=== PATIENT | female | born 1955 | race Caucasian/White ===

== ENCOUNTER 2022-08-30 10:25 | Outpatient (CLI) | payer MEDICARE, OTHER, SELFPAY ==
--- NOTE | 2022-08-30 10:45 | CRLHL7_ITS ---
For Patients: As a result of the Cures Act, medical imaging exams and procedure reports are released immediately into your electronic medical record. You may view this report before your referring provider. If you have questions, please contact your health care provider. BILATERAL DIAGNOSTIC MAMMOGRAM WITH COMPUTER-AIDED DETECTION AND TOMOSYNTHESIS LEFT BREAST ULTRASOUND INDICATION: 66-year-old female. Palpable abnormality and tenderness lower outer quadrant LEFT breast. TECHNIQUE: CC and MLO views were obtained. This digital study was evaluated with the assistance of computer-aided detection. Digital breast tomosynthesis utilized. COMPARISON: None. FINDINGS: There are scattered areas of fibroglandular density Scattered benign-appearing calcifications in each breast some of which are secretory in nature. No underlying mass or region of architectural distortion identified in either breast. No suspicious microcalcifications. Ultrasound is recommended for further evaluation of the palpable abnormality in the lower outer quadrant of the LEFT breast. IMPRESSION: Negative mammogram. TECHNIQUE: Directed LEFT breast ultrasound with this radiologist present. FINDINGS: Only normal breast tissue is identified. No underlying mass. No region of architectural distortion. No definite lymph node or cyst either. These findings were discussed briefly with the patient. IMPRESSION: Negative mammogram. Negative LEFT breast ultrasound. Any further workup should based on clinical grounds. Annual mammography is recommended. BI-RADS Category 2: Benign A lay language report of this examination will be provided to the patient. Dictated by: Guero Chacon MD @08/31/2022 8:16:41 AM/tyler DIANDRA/Dictated by: Guero Chacon MD @ 08/31/2022 8:15:00 AM (Electronically Signed)
--- NOTE | 2022-08-30 11:15 | CRLHL7_ITS ---
For Patients: As a result of the Century Cures Act, medical imaging exams and procedure reports are released immediately into your electronic medical record. You may view this report before your referring provider. If you have questions, please contact your health care provider. PLEASE SEE BILATERAL DIAGNOSTIC MAMMOGRAM OF SAME DAY. DIANDRA/Dictated by: Guero Chacon MD @ 08/31/2022 8:16:00 AM (Electronically Signed)
--- NOTE | 2022-08-30 13:30 | CRLHL7_ITS ---
For Patients: As a result of the Century Cures Act, medical imaging exams and procedure reports are released immediately into your electronic medical record. You may view this report before your referring provider. If you have questions, please contact your health care provider. DXA BONE MINERAL DENSITY STUDY Reason for exam: Hyperparathyroidism. Current height (in): 66. Weight (lb): 225. Menopause age: 45. Ethnicity: White. 1. Have you had a previous hip or vertebral fracture? No. 2. Have you had any fractures during your adult life which did not result from significant trauma (e.g., auto accident)? No. 3. Did either of your parents have a hip fracture? Yes. 4. Do you smoke? No. 5. Have you ever taken Glucocorticoids? No. 6. Do you have rheumatoid arthritis? No. 7. Do you have secondary osteoporosis? Yes. 8. Do you drink 3 or more alcoholic drinks per day? No. 9. Are you being treated for osteoporosis? No. 10. Have you ever taken any of the following medications: Actonel, Evista, Fosamax, Miacalcin, Reclast, Boniva, Forteo, HRT (i.e., estrogen/hormone therapy), Protelos, Prolia, Vitamin D, Calcium, other ??? please specify. ANSWER: Yes, vitamin D and Actonel. 11. Do you have any of the following medical conditions: Anorexia or bulimia, asthma or emphysema, end stage renal disease, hyperparathyroidism, any seizure disorders, cancer, inflammatory bowel diseases, hysterectomy, other ??? please specify. ANSWER: Yes, hyperparathyroidism and hysterectomy. 12. What was your maximum height (inches)? 67. 13. Do you perform weight bearing exercise regularly? No. 14. Do you regularly consume dairy products? Yes. 15. Do you drink caffeinated beverages? No. If female: 16. At what age did your period start? 14. 17. Are you premenopausal? No. 18. How many full-term pregnancies have you had? 3. 19. Have you ever missed your period for more than 6 months in a row (not including or menopause)? No. TECHNIQUE: Bone mineral density study was performed using the [employer]. FINDINGS: The results of the study expressed as bone mineral density (BMD) are as follows: Lumbar spine L1 to L4: BMD: 1.116 g/cm2. T-score: 0.6. Z-score: 2.4 Neck Left: BMD: 0.818 g/cm2. T-score: -0.3. Z-score: 1.3 Right: BMD: 0.835 g/cm2. T-score: -0.1. Z-score: 1.4 Total Left: BMD: 0.976 g/cm2. T-score: 0.3. Z-score: 1.5 Right: BMD: 0.943 g/cm2. T-score: 0.0. Z-score: 1.3 IMPRESSION: Normal bone density. KIM TOBIAS M.D. Diagnostic/Nuclear Medicine Radiologist [email or web address] JMN:[email or web address]/Dictated by: Kim Tobias MD @ 08/31/2022 10:11:00 AM (Electronically Signed)
== END 2022-08-30 10:26 | disposition home or self-care (01) ==
LOC: MAMMO 10:26
PROVIDERS: PCP Family Medicine; Visit Provider Family Medicine
DX: N64.4 Mastodynia (principal); E21.3 Hyperparathyroidism, unspecified
CPT/HCPCS: 76642; 77066; 77080; G0279

== ENCOUNTER 2022-09-04 11:50 | Outpatient (CLI) | payer MEDICARE, OTHER, SELFPAY | END 2022-09-04 11:51 | disposition home or self-care (01) | PROVIDERS: PCP Family Medicine; Visit Provider Family Medicine | DX: R53.83 Other fatigue (principal); D50.9 Iron deficiency anemia, unspecified; I10 Essential (primary) hypertension; Z13.6 Encounter for screening for cardiovascular disorders; D47.3 Essential (hemorrhagic) thrombocythemia | CPT/HCPCS: 80061; 82728 ==

== ENCOUNTER 2022-10-09 13:00 | Outpatient (RCR) | payer MEDICARE, OTHER, SELFPAY ==
[2022-09-14] VITALS (7 sets, daily range): BP systolic 119–141; BP diastolic 69–84; PULSE 77–93; RESP 16–22; TEMP 36.3–37.2; O2SAT 96–100
--- NOTE | 2022-09-14 16:42 | ONC.NURNOTE ---
Transferred pt to Med Surg to finish unit 2/2 PRBC transfusion. Report given via phone to BABAK Collins; all ppwk and SBAR transferred with pt and handed off. Called back and reviewed with shaw Jeffers RN that Dr. Holland included order for post-transfusion Hgb to be drawn to be on file. Critical value to be reported to on-call provider per protocol, otherwise no notification needed.
[2022-09-14 17:23] LABS: Hemoglobin* 8.8 gm/dL (12.0-16.0)
--- NOTE | 2022-09-14 17:46 | PC.NURSE ---
Pt arrived from [facility] at 1635 via w/c to room 262 for completion of her 2nd unit of prbc for hgb 6.7. Blood transfusion completed at 1655 VS taken and 30 minute post op VS completed at 1725. Post op HGB obtained per Dr. Holland's order No sx of transfusion rxn. IV #24 discontinued per primary RN right upper extremity. Discharged to own home with noe Colindres via w/c with personal belongings at 1736 pm.
[2022-10-09 14:33] LABS: Basophils Percent Auto 0.3 % (0.0-3.0); Eosinophils Percent Auto 0.9 % (0.0-7.0); Hematocrit 30.1 % (33.0-51.0); Hemoglobin* 8.8 gm/dL (12.0-16.0); Immature Granulocytes Pct Auto 0.4 %; Immature Reticulocyte Fraction 37.6 % (3.0-15.9); Lymphocytes Percent Auto 15.8 % (20-44); Mean Corpuscular HGB Conc 29 gm/dL (32-36); Mean Corpuscular Hemoglobin 23 pg (26-34); Mean Corpuscular Volume 78 fL (80-100); Monocytes Percent Auto 4.7 % (0.0-11.0); Neutrophils Percent Auto 77.9 % (42.0-72.0); Platelet Count* 653 K/uL (140-440); Red Blood Count 3.84 m/uL (4.00-5.20); Reticulocyte Hemoglobin Equivi 18.4 pg (29.0-35.0); Reticulocytes Absolute 0.08 # (0.03-0.08); White Blood Count* 13.96 K/uL (4.50-11.00)
[2022-10-09 14:47] LABS: Albumin* 4.3 g/dL (3.3-5.0); Chloride* 107 mmol/L (96-114); Sodium* 139 mmol/L (135-149)
[2022-10-09 14:48] LABS: Potassium* 4.4 mmol/L (3.6-5.1); Slide Review Reflex No
[2022-10-09 14:50] LABS: Alanine Aminotransferase* 14 U/L (4-35); Alkaline Phosphatase* 109 U/L (40-150); Aspartate Amino Transferase* 15 U/L (12-35); Bilirubin Total* 0.2 mg/dL (0.1-1.5); Blood Urea Nitrogen* 16 mg/dL (7-30); Carbon Dioxide* 26 mmol/L (20-32); Creatinine* 0.9 mg/dL (0.5-1.5); Estimated Glomerular Filt Rate 71 ml/min; Glucose* 98 mg/dL (60-115); Total Protein* 7.4 g/dL (6.0-8.3)
[2022-10-09 14:51] LABS: Calcium* 9.3 mg/dL (8.4-10.6)
[2022-10-09 15:40] LABS: Vitamin B12* 487 pg/mL (243-894)
[2022-10-09 16:28] LABS: Iron* 26 ug/dL (37-170)
[2022-10-09 16:38] LABS: Percent Iron Saturation 6 % (20-50); Total Iron Binding Capacity 460 ug/dL (265-497)
[2022-10-09 17:05] LABS: Ferritin* 4.2 ng/mL (11.1-264.0)
[2022-10-11 14:35] LABS: Folate, Serum 10.9 ng/mL (>=5.9)
== END 2023-03-13 23:59 | disposition home or self-care (01) ==
LOC: CCIC 13:00
PROVIDERS: PCP Family Medicine; Referring Provider Family Medicine; Visit Provider Internal Medicine Hematology & Oncology
DX: D64.9 Anemia, unspecified (principal); D75.81 Myelofibrosis
CPT/HCPCS: 36415; 36430; 80053; 82607; 82728; 82746; 83540; 83550; 85018; 85025; 85045; 86850; 86900; 86901; 86922; 99202; 99204; 99205; 99212; P9016

== ENCOUNTER 2022-10-16 11:03 | Outpatient (CLI) | payer MEDICARE, OTHER, SELFPAY | END 2022-10-16 11:04 | disposition home or self-care (01) | LOC: NFLDREF 10-17 11:27 | PROVIDERS: PCP Family Medicine; Referring Provider Family Medicine; Visit Provider Family Medicine | DX: Z00.00 Encounter for general adult medical examination without abnormal findings (principal); I10 Essential (primary) hypertension; E66.01 Morbid (severe) obesity due to excess calories; D50.8 Other iron deficiency anemias; Z13.6 Encounter for screening for cardiovascular disorders | CPT/HCPCS: 80053; 80061 ==

== ENCOUNTER 2022-10-18 14:27 | Outpatient (CLI) | payer MEDICARE, OTHER, SELFPAY | END 2022-10-18 14:28 | disposition home or self-care (01) | LOC: NFLDREF 10-25 22:28 | PROVIDERS: PCP Family Medicine; Referring Provider Family Medicine; Visit Provider Internal Medicine Hematology & Oncology | DX: D75.81 Myelofibrosis (principal) | CPT/HCPCS: 81270 ==

== ENCOUNTER 2023-01-11 10:48 | Outpatient (CLI) | payer MEDICARE, OTHER, SELFPAY | END 2023-01-11 10:49 | disposition home or self-care (01) | LOC: NFLDREF 10:51 | PROVIDERS: PCP Family Medicine; Visit Provider Family Medicine | DX: R30.0 Dysuria (principal); D50.9 Iron deficiency anemia, unspecified; E21.3 Hyperparathyroidism, unspecified; I10 Essential (primary) hypertension; D47.3 Essential (hemorrhagic) thrombocythemia; E66.01 Morbid (severe) obesity due to excess calories; R35.0 Frequency of micturition; R07.2 Precordial pain; I95.9 Hypotension, unspecified; N20.0 Calculus of kidney | CPT/HCPCS: 82728; 87086 ==

== ENCOUNTER 2023-01-15 11:27 | Outpatient (CLI) | payer MEDICARE, OTHER, SELFPAY | END 2023-01-15 11:28 | disposition home or self-care (01) | LOC: NFLDREF 11:29 | PROVIDERS: PCP Family Medicine; Visit Provider Family Medicine | DX: R30.0 Dysuria (principal) | CPT/HCPCS: 87086 ==

== ENCOUNTER 2023-01-18 15:58 | Outpatient (CLI) | payer MEDICARE, OTHER, MEDICAID, SELFPAY | END 2023-01-18 15:59 | disposition home or self-care (01) | LOC: NFLDREF 15:58 | PROVIDERS: PCP Family Medicine; Visit Provider Family Medicine | DX: R30.0 Dysuria (principal) | CPT/HCPCS: 87086 ==

== ENCOUNTER 2023-03-19 11:38 | Outpatient (CLI) | payer MEDICARE, OTHER, SELFPAY | END 2023-03-19 11:39 | disposition home or self-care (01) | PROVIDERS: PCP Family Medicine; Visit Provider Family Medicine | DX: E21.3 Hyperparathyroidism, unspecified (principal); D50.9 Iron deficiency anemia, unspecified; I10 Essential (primary) hypertension; E66.01 Morbid (severe) obesity due to excess calories; N20.0 Calculus of kidney; M54.9 Dorsalgia, unspecified; Z87.442 Personal history of urinary calculi | CPT/HCPCS: 80053; 82728; 87086; 87186 ==

== ENCOUNTER 2023-07-31 11:00 | Outpatient (CLI) | payer MEDICARE, OTHER, SELFPAY ==
--- OUTSIDE RECORDS SUMMARY | 2023-08-09 12:10 | XMS_ITS | Data Portability ---
Author Name Unknown Address [address] [place] [address] Phone [phone] Organization [facility], [facility] Address [address] [place] [address] Care Team Providers Care Winder Fixer Name Role Phone LAVELLE SUN Primary Care Provider Assessment Encounter Date Assessment Date Assessment LastModified by Organization Details LastModified Time 06/04/2023 06/04/2023 67 year old female with a history of gross hematuria, lower urinary tract symptoms, pelvic floor dysfunction, pelvic organ prolapse, and recurrent urinary tract infections. Not available 06/04/2023 14:35:10 08/05/2023 08/05/2023 67 year old female with a history of gross hematuria, lower urinary tract symptoms, pelvic floor dysfunction, pelvic organ prolapse, and recurrent urinary tract infections. [email or web address] Not available 06/10/2023 08:40:57 Plan of Treatment Reminders Order Date Submit Date Provider Last Modified By Organization Details Last Modified Time Details Appointments None recorded. Lab urinalysis, dipstick 2023 024 [facility], [address], [address], [place], [address], 18:24:53 urinalysis, microscopic 2023 024 [facility], [address], [address], [place], [address], 14:16:48 cytology, urine 2023 024 [facility], [address], [address], [place], [address], 4 10:07:41 Referral urologist referral - Recurrent prolapse status post repair in 2003. 2023 024 [email or web address] [place], [address], [address], [place], [address], 4 08:58:39 Procedures None recorded. Surgeries None recorded. Imaging CT, urogram 2023 024 [facility], [address], [place], [address], 4 07:49:34 Medication Orders Valium 5 mg tablet 2023 024 [email or web address] [id number], [address] , [place], [address], 4 00:54:28 conjugated estrogens 0.625 mg/gram vaginal cream 2023 024 [email or web address] [id number], [address], [place], [address], 4 10:35:05 Patient TargetsNo targets recorded. 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 Hand-outs on prolapse and surgery also given. Prolapse management is guided by the patients symptoms and desire for normal or near-normal vaginal function and well as bladder bowel. Prolapse management can be operative (open, laparoscopic, vaginal, with and without graft augmentation), or non-operative (Pessary or pelvic muscle training). Obliterative techniques such as Colpocleisis may also be appropriate in some women. We discussed that prolapse is a chronic disease and recurrence can be as high was 60% even with the best repair, and repeat surgery rates of 10-15% are described in the literature. She would be a good candidate for vaginal repair, SSLF with AXIS graft. We can do this outpatient. Went over surgery, recovery, graft, buttocks pain, etc. As long as she is cleared for surgery, anemia, etc. We can also do this in [place] for her, she lives in [place]. Not available 08/05/2023 11:26:51 06/04/2023 [id number] Gross hematuria: We discussed the current guidelines as outlined by the [place] [employer] regarding the evaluation of patients at risk for urothelial cell carcinoma. AUA Microscopic Risk Category: High Age > 60: Yes Smoking history of >30 pack years: N >25 RBC/HPF on single urine analysis: No History of gross hematuria: Yes It is recommended that they proceed with local cystoscopy and contrast enhanced triphasic upper tract imaging. Her cystoscopy was negative for tumor. A urine cytology was sent. I will have her complete a CT urogram to complete her evaluation. Pelvic Organ Prolapse: Recurrent and she desires referral to discuss repair. I will have her meet with Dr. Baca to discuss. Overactive bladder: I offered her referral to pelvic floor physical therapy. She has done this before and didn't have benefit and declined this. We discussed the role of medical therapy but she declined this as well. Recurrent urinary tract infections: We discussed the natural history of recurrent urinary tract infections in the post-menopausal female as well as risk factors which may induce a nidus that may also contribute. Her cystoscopy shows no mesh erosion and prior imaging in 2022 was negative for upper tract nidus. We then discussed standard prevention measures. She will start vaginal estrogen supplementation three times per week. She continue with her daily cranberry supplement. Not available 06/04/2023 14:34:18 Reason for Referral Urologist Referral for Prola pse of female genital organs Recurrent prolapse status post repair in 2003. Referring Physician: Flash Grijalva, Urology, Encounter Date: 06/04/2023 Results Created Date Observation Date Name Description Value Unit Range Abnormal Flag LastModifiedBy Organization Detail LastModifiedTime 06/04/19 24 06/04/2023 UA WITHO UT MICRO - CS URISC AN blood - uriscan negati ve negati ve Not Available [facility] [address] [facility] [address], [place], [address], 06/04/2023 18:24:53 06/04/19 24 06/04/2023 UA WITHO UT MICRO - CS URISC AN bilirubin - uriscan negati ve mg/dL negati ve Not Available [facility] [address] [facility] [address], [place], [address], 06/04/2023 18:24:53 06/04/19 24 06/04/2023 UA WITHO UT MICRO - CS URISC AN urobilinogen - uriscan normal mg/dL normal Not Available [facility] [address] [facility] [address], [place], [address], 06/04/2023 18:24:53 06/04/19 24 06/04/2023 UA WITHO UT MICRO - CS URISC AN ketones - uriscan negati ve mg/dL negati ve Not Available [facility] [address] [facility] [address], [place], [address], 06/04/2023 18:24:53 06/04/19 24 06/04/2023 UA WITHO UT MICRO - CS URISC AN protein - uriscan negati ve mg/dL negati ve Not Available [facility] [address] [place] [address] [address], [place], [address], 06/04/2023 18:24:53 06/04/19 24 06/04/2023 UA WITHO UT MICRO - CS URISC AN nitrites - uriscan negati ve negati ve Not Available [facility] [address] [place] [address] [address], [place], [address], 06/04/2023 18:24:53 06/04/19 24 06/04/2023 UA WITHO UT MICRO - CS URISC AN glucose - uriscan negati ve mg/dL negati ve Not Available [facility] [address] [facility] [address], [place], [address], 06/04/2023 18:24:53 06/04/19 24 06/04/2023 UA WITHO UT MICRO - CS URISC AN pH - uriscan 5.00 5.00-9 .00 Not Available [facility] [address] [facility] [address], [place], [address], 06/04/2023 18:24:53 06/04/19 24 06/04/2023 UA WITHO UT MICRO - CS URISC AN sp. gravity - uriscan 1.02 1.01-1 .03 Not Available [facility] [address] [place] [address] [address], [place], [address], 06/04/2023 18:24:53 06/04/19 24 06/04/2023 UA WITHO UT MICRO - CS URISC AN leukocytes - uriscan negati ve negati ve Not Available [facility] [address] [place] [address] [address], [place], [address], 06/04/2023 18:24:53 06/04/19 24 06/04/2023 UA WITHO UT MICRO - CS URISC AN color - uriscan yellow lt. yellow ;yello w Not Available [facility] [address] [place] [address] [address], [place], [address], 06/04/2023 18:24:53 06/04/19 24 06/04/2023 UA WITHO UT MICRO - CS URISC AN clarity - uriscan clear clear Not Available [facility] [address] [place] [address] [address], [place], [address], 06/04/2023 18:24:53 06/04/19 24 06/04/2023 UA WITHO UT MICRO - CS URISC AN total urine volume (mL) 15 /mL Not Available [facility] [address] [place] [address] [address], [place], [address], 06/04/2023 18:24:53 06/04/19 24 06/04/2023 URINE CYTOL OGY apresult AP result s Not Available [facility] [address] [facility] [address], [place], [address], 06/06/2023 10:07:40 06/04/19 24 10/05/2022 CT, abdom en + pelvi s, w/ contr ast No observ ation record ed. [facility] [address] [place], [address], 06/04/2023 13:38:37 06/13/19 24 06/12/2023 CT, urogr am No observ ation record ed. [facility] [address] [facility] [place], [address], 06/13/2023 09:31:15 Result Notes None recorded. Problems Name Status Onset Date Resolution Date Notes Provider Name and Address Organization Details Recorded Time Kidney stone Active 05/28/19 24 Stefano Meath null, [facility] 05/28/2023 15:43:07 Anemia Active 05/28/19 24 Stefano Meath null, [facility] 05/28/2023 15:43:22 Thrombocytosis Active 05/28/19 24 Stefano Meath null, [facility] 05/28/2023 15:43:31 Problem Notes None recorded. Procedures Surgical History Date Name Laterality Status Provider Name and Address Organization Details Recorded Time 08/05/19 24 Pelvic Exam completed Don Baca MD [address] [facility],[address], [place], [address], [facility] 08/05/2023 08:55:02 08/05/19 24 Past Data Reviewed completed Don Baca MD [address] [place] [address],[address], [place], [address], [facility] 08/05/2023 10:48:58 06/04/19 24 Cystoscopy- female completed Flash Grijalva MD [address] [facility],[address], [place], [address], [facility] 06/04/2023 14:15:25 03/01/20 23 Diagnostic colonoscopy completed Not Available Health Note 06/03/2023 15:32:12 07/05/19 23 Occult blood feces completed Not Available Health Note 06/03/2023 15:32:12 Cystoscopy completed Not Available Health Note 0 06/03/2023 15:32:12 Hernia repair w/mesh completed Not Available Health Note 06/03/2023 15:32:12 Partial hysterectomy completed Not Available Health Note 06/03/2023 15:32:12 Fragmenting of kidney stone completed Not Available Health Note 06/03/2023 15:32:12 Imaging Results Imaging Date Name Status LastModified by Organiz ation Details LastModified Time 10/05/2022 CT, abdomen + pelvis, w/ contrast completed [id number] [facility] [address] [place], [address], 06/04/2023 13:38:37 06/12/2023 CT, urogram completed [facility] [address] [place], [address], 06/13/2023 09:31:15 Procedure Notes None recorded. Medical Equipment None Reported. Allergies No known drug allergies Medications Name Sig Start Date Stop Date Status Note LastModified by Organization Details LastModified Time fluconazo le 150 mg tablet TAKE ONE TABLET BY MOUTH EVERY DAY 06/03 completed HN: Patient reports no longer taking Not Available Not Available Not Available atenolol 25 mg tablet TAKE ONE TABLET BY MOUTH EVERY DAY 06/03 completed HN: Patient reports no longer taking Not Available Not Available Not Available lorazepam 0.5 mg tablet TAKE 1-2 TABLETS BY MOUTH [address] SCAN NEEDED FOR ANXIETY DO NOT DRIVE AFTER TAKING THIS MED. MUST HAVE EQUIPMENT OPERAT0R 06/03 completed HN: Patient reports no longer taking Not Available Not Available Not Available cephalexi n 500 mg capsule TAKE ONE CAPSULE BY MOUTH THREE TIMES A DAY FOR 10 DAYS 06/03 completed HN: Patient reports no longer taking Not Available Not Available Not Available diazepam 5 mg tablet TAKE 1 TABLET BY ORAL ROUTE DIRECTED . TAKE [address] active Not Available Not Available No t Available Premarin 0.625 mg/gram vaginal cream Insert 0.5 applicat orsful 3 times a week by vaginal route. 08/04 completed HN: Patient reports no longer taking Not Available Not Available Not Available nitrofura ntoin monohydra te/macroc rystals 100 mg capsule TAKE ONE CAPSULE BY MOUTH TWICE A DAY WITH FOOD 06/03 completed HN: Patient reports no longer taking Not Available Not Available Not Available aspirin 81mg 1/day active Not Available Not Available No t Available GaviLyte- G 236 gram-22.7 4 gram-6.74 gram-5.86 gram oral solution THE DAY BEFORE EXAM BETWEEN 4-6 P.M DRINK 8 OZ EVERY 15 MINUTES UNTIL HALF GONE. 5 HOURS BEFORE EXAM DRINK THE OTHER HALF 8OZ EVERY 15 FERMIN 06/03 completed HN: Patient reports no longer taking Not Available Not Available Not Available Vitron-C 65 mg iron-125 mg tablet,de layed release TAKE ONE TABLET BY MOUTH TWICE A DAY active Not Available Not Available No t Available Vitals Date Recorded Body weight Body mass index (BMI) Body height Provider Name and Address Organization Details Last Updated DateTime 06/04/2023 240739.7827 55181 g 38.7 kg/m2 167.64 cm Not Available Health Note 06/04/2023 09:00:28 Date Recorded Body height Body mass index (BMI) Body weight Provider Name and Address Organization Details Last Updated DateTime 08/05/2023 167.64 cm 38.7 kg/m2 024235.17 g Yaa Hugo [facility] [place] [facility] 08/05/2023 10:34:58 Social History Question Answer Notes LastModified by Organizat ion Details LastModified Time Tobacco Smoking Status Never Smoker Not Available Health Note 08/05/2023 00:54:26 What Is Your Level Of Alcohol Consumption? None Information not available 08/05/2023 What Is Your Level Of Caffeine Consumption? None [email or web address] Information not available 08/05/2023 How Much Tobacco Do You Chew? None [email or web address] Information not available 08/05/2023 Do You Or Have You Ever Used E-cigarettes Or Vape? Never Used Electronic Cigarettes [email or web address] Information not available 08/05/2023 Race Unknown Information not available 08/05/2023 Preferred Language American Information not available 08/05/2023 Number Of Pregnancies 3 [email or web address] Information not available 06/03/2023 Number Of Vaginal Deliveries 3 [email or web address] Information not available 06/03/2023 Number Of Caesarean Sections 0 [email or web address] Information not available 06/03/2023 Could You Be ? No [email or web address] Information not available 06/03/2023 What Was The Date Of Your Most Recent Tobacco Screening? 08/05/2023 [email or web address] Information not available 08/05/2023 Have You Ever Been Counseled For Unhealthy Alcohol Use? No Information not available 06/04/2023 What Is Your Relationship Status? [email or web address] Information not available 08/05/2023 Are You Sexually Active? No [email or web address] Information not available 08/05/2023 Do You Or Have You Ever Used Smokeless Tobacco? Never Used Smokeless Tobacco [email or web address] Information not available 08/05/2023 Do You Use Any Illicit Or Recreational Drugs? No [email or web address] Information not available 08/05/2023 Has Tobacco Cessation Counseling Been Provided? No Information not available 06/04/2023 Do You Or Have You Ever Used Any Other Forms Of Tobacco Or Nicotine? No Information not available 06/04/2023 How Many Days In The Past Year Have You Consumed 4 Or More Drinks? 0 [email or web address] Information no t available 08/05/2023 Sex: Female Functional Status None recorded. Mental Status None recorded. Family History Relationship Description Onset Age of this Age Resolved Age Notes Father Family history of cancer Paternal Grandfather Family history of cancer Paternal Grandmother Family history of cancer Notes:Father has esophageal cancer Paternal Grandmother has esophageal cancer Medical History Condition Response Other N High Blood Pressure Y Kidney Stones Y Lung Disease N Depression N GERD/Acid Reflux Y Diabetes N Sexually Transmitted Infection N Bleeding Disorder N Cancer N High Cholesterol Y Heart Disease N Gynecological History Statement/Question Response If Post Menopausal, Age at Menopause 48 Hormone Therapy N Sexually Active? N Obstetrics History GPAL:G 0 P 0 0 0 0 Immunizations Vaccine Type Date Status Provider Name and Address Organization Details Recorded Time influenza, unspecified formulation 03/06/2011 completed Not Available Health Note 06/03/2023 15:32:16 influenza, unspecified formulation 04/05/2012 completed Not Available Health Note 08/05/2023 00:54:29 Past Encounters Encounter ID Performer Location Encounter Start Date Encounter Closed Date Diagnosis/Indication Diagnosis SNOMED-CT Code [id number] Flash Grijalva MD [facility] [address] [place] [address] 06/04/2023 09:00:24 06/04/2023 15:00:36 Guero hematuria 424881410 Pelvic emma or dysfunction 070960817 Overactive bladder 53079 7000 Recurrent urinary tract infection 232097289 Prolapse o f female genital organs 62511026 [id number] Don Baca MD [facility] [address] [facility] [address] [place] [address] 08/05/2023 10:27:12 08/05/2023 11:28:05 Recurrent urinary tract infection 698938039 Herniation of rectum into vagina 869355370 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 63193375 Health Concerns Section Related Observation LastModified by Organization Detai ls LastModified Time None Recorded Concern Status LastModified by Organization Details LastModified Time None Recorded Advance Directives Directive None Recorded Payers Encounter Date Sequence Insurance Name Policy Number Policy Proctor Covered Member ID Proctor Member ID Guarantor Name 08/05/2023 2 [employer] - FOR LIFE (MEDICARE SUPPLEMENT) Gunjan Felixi [id number] Gunjan Gann Gnemi 08/05/2023 1 MEDICA - DUAL ELIGIBLE (MEDICARE REPLACEMENT/A DVANTAGE - HMO) Gunjan Felixi [id number] Gunjan Gann Gnemi 06/04/2023 1 MED[place]: [employer] Gunjan Felixi [id number] Gunjan Gann Gnemi 06/04/2023 2 [employer] - FOR LIFE (MEDICARE SUPPLEMENT) Gunjan Felixi [id number] Gunjan Felixi Notes Date Note Type Note Provider Name and Address Organization Details Recorded Time text/html HPI Notes: This is a 67 year old female who is referred for the evaluation and management of gross hematuria, lower urinary tract symptoms, pelvic floor dysfunction, and recurrent urinary tract infections. She had a bought of abdominal and flank pain in March. She thought she was passing a kidney stone but subsequently passed a blood clot instead. Her symptoms have improved since then, but she is still having intermittent right flank pain. She does have baseline symptoms of overactivity. She is bothered by urinary urgency, frequency, and urge urinary incontinence. She wears 2 pads per day. She is not on medical therapy. She has tried pelvic floor physical therapy without improvement. She has been struggling with recurrent urinary tract infections for more than 10 years. She does take a daily cranberry supplement. She has recurrent nephrolithiasis. She was treated for hyperparathyroidism with improvement. She still frequently passes small stones. She has a history of pelvic organ prolapse and stress urinary incontinence. She is status post what sounds like sling placement, prolpase repair, and repair of rectocele in 2003. These have all recurred. She has tried pelvic floor physical therapy without improvement. Flash Grijalva MD [address] [place] [address],[address], [place], [address], [facility] 06/04/2023 14:35:55 4 text/html HPI Notes: 08/05/23: Seen by Dr Grijalva for hematuria. Cysto/cytology/CT okay. He noted Gr III POP on his exam. 3mm RLP stone. Prior Hyperpara - had surgery for this in 2016 COVID hit her hard last year, felt passing stones. Saw a blood clot. Bright red urine. Not vaginal bleeding. Seeing blood on her pad still. Flank pain to the groin. She has a history of pelvic organ prolapse and stress urinary incontinence. She is status post what sounds like sling placement, HYS/prolapse repair, and repair of rectocele in 2003 at [place]. Prior to this was splinting/reducing to even walk. She has tried pelvic floor physical therapy without improvement. Given Estrace for UTI prevention Prior HYS and ventral hernia repair with MESH Bulge sx again after surgery. Worse this past year. Can just leak worse is waits too long. 2 PPD. Mostly dry at night. Occ leak with cough/sneeze. Not a clear trigger. Don Baca MD [address] [place] [address],[address], [place], [address], [facility] 08/05/2023 11:27:44 OBGyn Episode No OBEpisode recorded.
--- OUTSIDE RECORDS SUMMARY | 2023-08-09 12:10 | XMS_ITS | Referral Summary ---
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 For routine questions regarding patient records, call [phone] during business hours, M-F 8:00 AM - 5:00 PM Central Time. Record requests for emergency care only can be directed to [phone] at any time.[facility] Allergies No known active allergies Medications Medication Sig Dispensed Refills Start Date End Date Status ibuprofen (MOTRIN) 400 mg tablet Take 400 mg by mouth as needed. 0 10/08/2017 Active ascorbic acid, vitamin C, (VITAMIN C) 500 mg tablet Take 500 mg by mouth daily. 0 09/04/2022 Active TURMERIC ORAL Take 1-2 capsules by mouth daily. 0 Active MAGNESIUM ORAL Take 1 capsule by mouth daily. 0 Active ADULT LOW DOSE ASPIRIN ORAL Take 1 tablet by mouth daily. 0 Active ferrous sulfate (IRON ORAL) Take 2 capsules by mouth daily. 0 Active atenoloL (TENORMIN) 25 mg tablet Take 1 tablet by mouth daily. 0 03/22/2023 Active fluconazole (DIFLUCAN) 150 mg tablet Take 1 tablet by mouth daily. 0 03/27/2023 Active Vitron-C 65 mg iron- [address] tablet Take 1 tablet by mouth 2 (two) times a day. 0 03/22/2023 Active omeprazole (PriLOSEC OTC) 20 mg EC tablet Take 1 tablet (20 mg total) by mouth 2 (two) times a day. 60 tablet 11 04/24/2023 Active Active Problems Problem Noted Date Diagnosed Date Anemia 01/22/2023 Anemia Iron Deficiency 01/22/2023 Other Thrombocytosis 01/22/2023 Social History Tobacco Use Types Packs/Day Years Used Date Smoking Tobacco: Never Smokeless Tobacco: Never Tobacco Cessation:Counseling Given: Not Answered Overall Financial Resource Strain (CARDIA) Answe r Date Recorded How hard is it for you to pa y for the very basics like food, housing, medical care, and heating? Hard 04/01/2023 Exercise Vital Sign Answer Date Recorde d On average, how many days pe r week do you engage in moderate to strenuous exercise (like a brisk walk)? Patient declined On average, how many minutes do you engage in exercise at this level? Patient declined 04/01/2023 Hunger Vital Sign Answer Date Recorded Within the past 12 months, y ou worried that your food would run out before you got the money to buy more. Patient declined Within the past 12 months, t he food you bought just didn't last and you didn't have money to get more. Patient declined PRAPARE - Transportation Answer Date Re corded In the past 12 months, has l ack of transportation kept you from medical appointments or from getting medications? Patient declined 04/01/2023 In the past 12 months, has l ack of transportation kept you from meetings, work, or from getting things needed for daily living? Patient declined 04/01/2023 Nutrition Answer Date Recorded Nutrition: EVOO Fat Source Unknown 04/01 On average, how many serving s of fruits and vegetables do you eat per day (serving size is equal to 1 cup or approximately the size of a tennis ball)? 0-2 04/01/2023 Dental Answer Date Recorded Dental: Regular Dentist No 04/01/20 Employment Answer Date Recorded Employment status Retired 04/01/2023 Housing Stability Answer Date Recorded What is your living situation today? Decline 04/01/2023 Sex and Gender Information Value Date Recorded Sex Assigned at Female 04/01/2023 1:14 PM SEX CRIMES DETECTIVE Gender Identity Female 04/01/2023 1:14 PM SEX CRIMES DETECTIVE Sexual Orientation Straight 04/01/2023 1: 14 PM SEX CRIMES DETECTIVE Last Filed Vital Signs Vital Sign Reading Time Taken Comments Blood Pressure 132/70 04/11/2023 2:32 PM SEX CRIMES DETECTIVE Pulse 57 04/11/2023 2:32 PM SEX CRIMES DETECTIVE Temperature 36.9 ??C (98.4 ??F) 04/11/2023 2:01 PM CS T Respiratory Rate 13 04/11/2023 2:32 PM SEX CRIMES DETECTIVE Oxygen Saturation 94% 04/11/2023 2:32 PM SEX CRIMES DETECTIVE Inhaled Oxygen Concentration - - Weight 110 kg (243 lb 9.7 oz) 04/11/2023 12:07 P M SEX CRIMES DETECTIVE Height 166.5 cm (5' 5.55) 04/11/2023 12:[address] Body Mass Index 39.86 04/11/2023 12:07 PM SEX CRIMES DETECTIVE Plan of Treatment Not on file Care Teams Hand Flatwork Finisher Relationship Specialty Start Date End Date Elsewhere, Pcp PCP - General Internal Medicine 01/22/23
--- OUTSIDE RECORDS SUMMARY | 2023-08-09 12:10 | XMS_ITS | Continuity of Care Document ---
Author Name Unknown Address [address] [place] [address] Phone [phone] Organization [facility] Address [address] [place] [address] Care Team Providers Care Reconciliation Clerk Name Role Phone LAVELLE SUN Primary Care Provider [phone] Assessment Encounter Date Assessment Date Assessment LastModified by Organization Details LastModified Time 08/05/2023 08/05/2023 67 year old female with a history of gross hematuria, lower urinary tract symptoms, pelvic floor dysfunction, pelvic organ prolapse, and recurrent urinary tract infections. [email or web address] Not available 06/10/2023 08:40:57 Plan of Treatment Reminders Order Date Submit Date Provider Last Modified By Organization Details Last Modified Time Details Appointments None record ed. Lab None record ed. Referral None record ed. Procedures None record ed. Surgeries None record ed. Imaging None record ed. Medication Orders None record ed. Patient TargetsNo targets recorded. Patient Instructions Encounter Date Encounter Id Patient Instructions Last Modified By Organization Details Last Modified Time 08/05/2023 [id number] Bothersome vaginal bulge, grade II rectocele with vaginal vault [...] etc. We can also do this in [place] for her, she lives in [place]. Not available 08/05/2023 11:26:51 Reason for Referral Urologist Referral for Prola pse of female genital organs Recurrent prolapse status post repair in 2003. Referring Physician: Flash Grijalva, Urology, Encounter Date: 06/04/2023 Problems Name Status Onset Date Resolution Date Notes Provider Name and Address Organization Details Recorded Time Kidney stone Active 05/28/19 24 Stefano Meath null, [facility] 05/28/2023 15:43:07 Anemia Active 05/28/19 24 Stefano Meath null, [facility] 05/28/2023 15:43:22 Thrombocytosis Active 05/28/19 24 Stefano Meath null, [facility] 05/28/2023 15:43:31 Problem Notes None recorded. Procedures Surgical History Date Name Laterality Status Provider Name and Address Organization Details Recorded Time 08/05/19 Pelvic Exam completed Don Baca MD [address] [place] [address],[address] [place] [address], [phone], [facility] 08/05/2023 08:55:02 08/05/19 24 Past Data Reviewed completed Don Baca MD [address] [place] [address],[address], [address], [facility] 08/05/2023 10:48:58 06/04/19 24 Cystoscopy- female completed Flash Grijalva MD [address] [place] [address],[address], [place], [address], [facility] 06/04/2023 14:15:25 07/05/19 23 Diagnostic colonoscopy completed Not Available Health Note 06/03/2023 15:32:12 07/05/19 23 Occult blood feces completed Not Available Health Note 06/03/2023 15:32:12 Cystoscopy completed Not Available Health Note 0 06/03/2023 15:32:12 Hernia repair w/mesh completed Not Available Health Note 06/03/2023 15:32:12 Partial hysterectomy completed Not Available Health Note 06/03/2023 15:32:12 Fragmenting of kidney stone completed Not Available Health Note 06/03/2023 15:32:12 Imaging Results None recorded. Procedure Notes None recorded. Medical Equipment None [...] DRIVE AFTER TAKING THIS MED. MUST HAVE PHARMACY CLINICAL COORDINATOR 06/03 completed HN: Patient reports no longer [...] No t Available Vitals Date Recorded Body height Body mass index (BMI) Body weight Provider Name and Address Organization Details Last Updated DateTime 08/05/2023 167.64 cm 38.7 kg/m2 993770.[address] [facility] 08/05/2023 10:34:58 Social History Question Answer [...] Unknown Information not available 08/05/2023 Preferred Language Yoruba Information not available 08/05/2023 Number Of Pregnancies [...] Disease N Depression N GERD/Acid Reflux Y Sexually Transmitted Infection N Cancer N High Cholesterol Y Diabetes N Bleeding Disorder N Heart Disease N Gynecological History Statement/Question Response [...] Encounter Closed Date Diagnosis/Indication Diagnosis SNOMED-CT Code [id number] Don Baca MD [address] [address] 08/05/2023 10:27:12 08/05/2023 11:28:05 Recurrent urinary tract infection [id number] Herniation of rectum into vagina [id number] 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 [id number] Health Concerns Section Related Observation LastModified by Organization Detai ls LastModified Time None Recorded Concern Status LastModified by Organization Details LastModified Time None Recorded Payers Encounter Date Sequence Insurance Name Policy Number Policy Proctor Covered Member ID Proctor Member ID Guarantor Name 08/05/2023 2 [employer] - FOR LIFE (MEDICARE SUPPLEMENT) Gunjan Shields [id number] Gnujan Shields 08/05/2023 1 MED[employer] - DUAL ELIGIBLE (MEDICARE REPLACEMENT/ ADVANTAGE - HMO) Gunjan Shields [id number] Gunjan Shields Notes Date Note Type Note Provider Name and Address Organization Details Recorded Time 08/05/2023 text/html HPI Notes: 08/05/23: Seen by Dr Grijalva for hematuria. Cysto/cytology/CT okay. He noted Gr III POP on his exam. 3mm RLP stone. Prior Hyperpara - had surgery for this in 2017 COVID hit her hard last year, felt passing stones. Saw a blood clot. Bright red urine. Not vaginal bleeding. Seeing blood on her pad still. Flank pain to the groin. She has a history of pelvic organ prolapse and stress urinary incontinence. She is status post what sounds like sling placement, HYS/prolapse repair, and repair of rectocele in 2003 at [facility]. Prior to this was splinting/reducin g to even walk. She has tried pelvic floor physical therapy without improvement. Given Estrace for UTI prevention Prior HYS and ventral hernia repair with MESH Bulge sx again after surgery. Worse this past year. Can just leak worse is waits too long. 2 PPD. Mostly dry at night. Occ leak with cough/sneeze. Not a clear trigger. Don Baca MD [address], [place], [address], [facility] 08/05/2023 11:27:44 OBGyn Episode No OBEpisode recorded.
--- OUTSIDE RECORDS SUMMARY | 2023-08-09 12:10 | XMS_ITS | Encounter Summary ---
Author Name Unknown Organization [facility] Address [address] [place] [address] Care Team Providers Care Soundscriber Mechanic Name Role Phone Elsewhere, Pcp Primary Care Provider Unavailabl e Encounter Details Date Type Department Care Team (Latest Contact Info) Description 04/04/2023 Clinical Communication Division of Gastroenterology in [place], [place] [address] [place] [address] Julianna Wyatt, R.N. [address] [place] [address] Social History Tobacco Use Types Packs/Day Years Used Date Smoking Tobacco: Never Smokeless Tobacco: Never Overall Financial Resource Strain (CARDIA) Answe r [...] Sex Assigned at Female 04/01/2023 1:14 PM FILTERATION OPERATOR Gender Identity Female 04/01/2023 1:14 PM FILTERATION OPERATOR Sexual Orientation Straight 04/01/2023 1: 14 PM FILTERATION OPERATOR documented as of this encounter Plan of Treatment Not on file documented as of this encounter Visit Diagnoses Not on filedocumented in this encounter Care Teams Soundscriber Mechanic Relationship Specialty Start Date End Date Elsewhere, Pcp PCP - General Internal Medicine 01/22/23 documented as of this encounter
--- OUTSIDE RECORDS SUMMARY | 2023-08-09 12:10 | XMS_ITS | Clinical Summary ---
Author Name Unknown Organization [facility] [employer] [facility] [facility] Address [place], [place] [address] Care Team Providers Care Editor Managing Newspaper Name Role Phone [facility] Primary Care Provider + Allergies No known active allergies Medications Medication Sig Dispensed Refills Start Date End Date Status LANSOPRAZOLE (PREVACID ORAL) Take 1 Tab by mouth once daily. Active ATENOLOL ORAL Take 50 mg by mouth once daily. Active ASPIRIN ORAL Take by mouth. Aspirin crystals about 1/4 each day. Each packet is 850 mg Active Encounters Date Type Department Care Team Description 06/12/2023 1:00 PM COMMISSIONING MANAGER Ancillary Procedure [facility] [id number] [place] [phone] 06/12/2023 11:50 AM COMMISSIONING MANAGER Orders Only [facility] [address] [place] [phone] Lab, Appv Lab 06/12/2023 Travel 06/10/2023 Telephone [facility] [address] [place] [address] Flash Grijalva MD Lab (Please schedule patient for a lab only appointment for I-STAT Creatinine [address] scan. This appointment is OK to double book on the [facility] Schedule ONLY. Call patient to notify them.) 06/10/2023 Orders Only [facility] [address] [place] [address] Flash Grijalva MD <No scans attached> from Last 3 Months Social History Tobacco Use Types Packs/Day Years Used Date Smoking Tobacco: Never Assessed Social Connections Answer Date Recorded Frequency of Communication with Friends and Fami ly Not on file 01/18/2023 Sex and Gender Information Value Date Recorded Sex Assigned at Not on file Gender Identity Not on file Sexual Orientation Not on file Obstetrics History Last Filed Vital Signs Vital Sign Reading Time Taken Comments Blood Pressure 128/71 03/29/2010 5:55 PM COMMISSIONING MANAGER Pulse 73 03/29/2010 4:42 PM COMMISSIONING MANAGER Temperature 36.7 ??C (98.1 ??F) 03/29/2010 4:42 PM CS T Respiratory Rate 20 03/29/2010 4:42 PM COMMISSIONING MANAGER Oxygen Saturation 96% 03/29/2010 5:43 PM COMMISSIONING MANAGER Inhaled Oxygen Concentration - - Weight - - Height - - Body Mass Index - - Plan of Treatment Upcoming Encounters Date Type Department Care Team (Late st Contact Info) Description 08/15/2023 11:00 AM CDT Office Visit [facility] [address] [place] [address] Jon Quevedo MD [address] [facility] [place], [place] [phone] Health Maintenance Due Date Last Done Comments Tdap 11/23/1967 Depression screening for age 12+ 1968 BMI (ht and wt on same day) for age 18+ 1974 Hepatitis C screening for age 18-79 1974 Tetanus booster 1976 Colonoscopy through age 75 2001 Lipids for age 45-75 2001 Mammogram for age 45-75 2001 Zoster (shingles) series for age 50+ (1 of 2) 11/23/19 07 DEXA/DXA scan for age 65+ 2021 Pneumococcal series for age 65+ (1 of 1 - PCV) 022 COVID-19 vaccine series ( - 2022- season) 3 Influenza for age 65+ 01/05/2024 Procedures Procedure Name Priority Date/Time Associated Diagnosis Comments CT ABDOMEN PELVIS UROGRAM [facility]WO Routine 06/12/2023 2:33 PM COMMISSIONING MANAGER Gross hematuria CREATININE,ISTAT STAT 06/12/2023 11:2 1 AM COMMISSIONING MANAGER Observation for suspected condition from Last 3 Months Results * CT ABDOMEN PELVIS UROGRAM [facility] (06/12/2023 2:33 PM COMMISSIONING MANAGER) Anatomical Region Laterality Modality Abdomen, Pelvis, KIDNEYS, BLADDER Computed Tomography 06/12/2023 2:33 PM COMMISSIONING MANAGER Impressions 06/12/2023 3:28 PM COMMISSIONING MANAGER 1. ??Nonobstructing 3 mm right kidney stone. Small right renal cyst requiring no further follow-up. 2. ??Kidneys, ureters and bladder are otherwise negative. 3. ??Colonic diverticulosis. 4. ??Large hiatal hernia. Narrative 06/12/2023 3:28 PM COMMISSIONING MANAGER For Patients: As a result of the Cures Act, medical imaging exams and procedure reports are released immediately into your electronic medical record. You may view this report before your referring provider. If you have questions, please contact your health care provider. EXAM: CT ABDOMEN PELVIS UROGRAM [facility] LOCATION: [facility] DATE: 06/12/2023 INDICATION: Gross hematuria. COMPARISON: None. TECHNIQUE: CT scan of the abdomen and pelvis using urogram technique with pre contrast, post contrast, and delayed images. Multiplanar reformats were obtained. Dose reduction techniques were used. CONTRAST: Omnipaque 350 100 ML FINDINGS: LOWER CHEST: Large hiatal hernia with over half the stomach above the hemidiaphragm. Left lower lobe atelectasis or scarring. HEPATOBILIARY: Small hepatic cyst requiring no further follow-up. No calcified gallstones. PANCREAS: Normal. SPLEEN: Normal. ADRENAL GLANDS: Normal. RIGHT KIDNEY/URETER: 3 mm nonobstructing stone lower pole calyx. 1.2 cm cyst posteriorly requires no further follow-up. No suspicious renal or ureteral mass. No hydronephrosis. LEFT KIDNEY/URETER: Normal. No mass, stone or hydronephrosis. BLADDER: No bladder stone or mass lesion. BOWEL: Diverticulosis of the colon. No acute inflammatory change. No obstruction. LYMPH NODES: Normal. VASCULATURE: Normal caliber abdominal aorta. PELVIC ORGANS: Hysterectomy. No pelvic mass. Postoperative change midline ventral abdominal wall hernia repair with mesh. Nothing for recurrent hernia. MUSCULOSKELETAL: Degenerative change thoracolumbar spine. Procedure Note Adi Dewey MD - 06/12/2023 For Patients: As a result of the 21st Century Cures Act, medical imagingexams and procedure reports are released immediately into your electronicmedical record. You may view this report before your referring provider.If you have questions, please contact your health care provider. EXAM: CT ABDOMEN PELVIS UROGRAM [facility] LOCATION: [facility] DATE: 06/12/2023 INDICATION: Gross hematuria. COMPARISON: None. TECHNIQUE: CT scan of the abdomen and pelvis using urogram technique withpre contrast, post contrast, and delayed images. Multiplanar reformatswere obtained. Dose reduction techniques were used. CONTRAST: Omnipaque 350 100 ML FINDINGS: LOWER CHEST: Large hiatal hernia with over half the stomach above thehemidiaphragm. Left lower lobe atelectasis or scarring. HEPATOBILIARY: Small hepatic cyst requiring no further follow-up. Nocalcified gallstones. PANCREAS: Normal. SPLEEN: Normal. ADRENAL GLANDS: Normal. RIGHT KIDNEY/URETER: 3 mm nonobstructing stone lower pole calyx. 1.2 cmcyst posteriorly requires no further follow-up. No suspicious renal orureteral mass. No hydronephrosis. LEFT KIDNEY/URETER: Normal. No mass, stone or hydronephrosis. BLADDER: No bladder stone or mass lesion. BOWEL: Diverticulosis of the colon. No acute inflammatory change. Noobstruction. LYMPH NODES: Normal. VASCULATURE: Normal caliber abdominal aorta. PELVIC ORGANS: Hysterectomy. No pelvic mass. Postoperative change midline ventral abdominal wall hernia repair withmesh. Nothing for recurrent hernia. MUSCULOSKELETAL: Degenerative change thoracolumbar spine. IMPRESSION: 1. Nonobstructing 3 mm right kidney stone. Small right renal cystrequiring no further follow-up. 2. Kidneys, ureters and bladder are otherwise negative. 3. Colonic diverticulosis. 4. Large hiatal hernia. Flash Grijalva MD CT * (ABNORMAL) CREATININE,ISTAT (06/12/2023 11:21 AM COMMISSIONING MANAGER) CREATININE, POCT 0.90 0.57 - 1.11 mg/dL 06/12/2023 11:26 AM COMMISSIONING MANAGER [facility] Comment:Caution: Patients ta negin Hydroxyurea have falsely increased iStat Creatinine results. Verify creatinine results ordering a Creatinine (14404.2) eGFR 71(L) >90 mL/min/1.7 3m2 06/12/2023 11:26 AM COMMISSIONING MANAGER [facility] Comment:As of 2021, eG FR is calculated by the CKD-EPI creatinine equation without race adjustment. eGFR can be influenced by muscle mass, exercise, and diet. The reported eGFR is an estimation only and is only applicable if the renal function is stable. Blood BLOOD SPECIMEN / Unknown 06/12/2023 11:21 AM COMMISSIONING MANAGER 06/12/2023 11:26 AM COMMISSIONING MANAGER Flash Grijalva MD CHEMISTRY [facility] [address] [place] [address], from Last 3 Months Care Teams Editor Managing Newspaper Relationship Specialty Start Date End Date [facility] [address] [place], [place] [phone] PCP - General 10/21/17
--- OUTSIDE RECORDS SUMMARY | 2023-08-09 12:10 | XMS_ITS | Continuity of Care Document ---
Author Name Unknown Address [address] [place] [address] Phone [phone] Organization [facility] , [facility] Address [address] [place] [address] Care Team Providers Care Waistline Joiner Name Role Phone LAVELLE SUN Primary Care Provider Assessment Encounter Date Assessment Date Assessment LastModified by Organization Details LastModified Time 06/04/2023 06/04/2023 67 year old female with a history of gross hematuria, lower urinary tract symptoms, pelvic floor dysfunction, pelvic organ prolapse, and recurrent urinary tract infections. Not available 06/04/2023 14:35:10 Plan of Treatment Reminders Order Date Submit Date Provider Last Modified By Organization Details Last Modified Time Details Appointments None recorded. Lab urinalysis, dipstick 2023 024 [facility], [address], [place], [address], 4 18:24:53 urinalysis, microscopic 2023 024 [facility], [address], [place], [address], 4 14:16:48 cytology, urine 2023 024 [facility], [address], [place], [address], 4 10:07:41 Referral urologist referral - Recurrent prolapse status post repair in 2003. 2023 024 [email or web address], [address] [facility] [address], [place], [address], 4 08:58:39 Procedures None recorded. Surgeries None recorded. Imaging CT, urogram 2023 024 [facility], [address], [place], [address], 4 07:49:34 Medication Orders Valium 5 mg tablet 2023 024 [id number], [address], [place], [address], 4 00:54:28 conjugated estrogens 0.625 mg/gram vaginal cream 2023 024 [email or web address] [id number], [address] , [place], [address], 4 10:35:05 Patient TargetsNo targets recorded. Patient Instructions Encounter Date Encounter Id Patient Instructions Last Modified By Organization Details Last Modified Time 06/04/2023 [id number] Gross hematuria: We discussed the current guidelines as outlined by the [employer] regarding the evaluation of patients [...] She continue with her daily cranberry supplement. [email or web address] Not available 06/04/2023 14:34:18 Reason for Referral Urologist Referral for Prola pse of female genital organs Recurrent prolapse status post repair in 2003. Referring Physician: Flash G[facility], Encounter Date: 06/04/2023 Results Created Date Observation Date Name Description Value Unit Range Abnormal Flag LastModifiedBy Organization Detail LastModifiedTime 06/04/19 24 10/05/2022 CT, abdom en + pelvi s, w/ contr ast No observ ation record ed. [facility] [address] [place], [address], 06/04/2023 13:38:37 06/13/19 24 06/12/2023 CT, urogr am No observ ation record ed. [facility] [address] [place], [address], 06/13/2023 09:31:15 Result Notes None recorded. Problems Name Status Onset Date Resolution Date Notes Provider Name and Address Organization Details Recorded Time Kidney stone Active 05/28/19 24 Stefano Meath null, [facility] 05/28/2023 15:43:07 Anemia Active 05/28/19 24 Stefano Meath null, [facility] 05/28/2023 15:43:22 Thrombocytosis Active 05/28/19 24 Stefano Meath null, [facility] 05/28/2023 15:43:31 Problem Notes None recorded. Procedures Surgical History Date Name Laterality Status Provider Name and Address Organization Details Recorded Time 08/05/19 Pelvic Exam completed Don Baca MD [address] [place] [address],[address], [place], [address], [place] [facility] 08/05/2023 08:55:02 08/05/19 Past Data Reviewed completed Don Baca MD [address] [place] [address],[address], [place], [address], [facility] 08/05/2023 10:48:58 06/04/19 24 Cystoscopy- female completed Flash Grijalva MD [address] [facility] [address], [place], [address], [facility] 06/04/2023 14:15:25 07/05/19 23 Diagnostic colonoscopy completed [...] DRIVE AFTER TAKING THIS MED. MUST HAVE CONTINUITY WRITER 06/03 completed HN: Patient reports no longer [...] Address Organization Details Last Updated DateTime 06/04/2023 [id number] 72326 g 38.7 kg/m2 167.64 cm Not Available Health Note 06/04/2023 09:00:28 Social History Question Answer Notes LastModified by [...] Unknown Information not available 08/05/2023 Preferred Language Tanzanian Information not available 08/05/2023 Number Of Pregnancies [...] Encounter Closed Date Diagnosis/Indication Diagnosis SNOMED-CT Code [id number] Flash Grijalva MD [facility] [address] [facility] [place] [address] 06/04/2023 09:00:24 06/04/2023 15:00:36 Guero hematuria [id number] Pelvic emma or dysfunction [id number] Overactive bladder 28218 7000 Recurrent urinary tract infection [id number] Prolapse o f female genital organs [id number] Health Concerns Section Related Observation LastModified by Organization Detai ls LastModified Time None Recorded Concern Status LastModified by Organization Details LastModified Time None Recorded Payers Encounter Date Sequence Insurance Name Policy Number Policy Proctor Covered Member ID Proctor Member ID Guarantor Name 06/04/2023 1 [place] [employer] Gunjan Shields [id number] Gunjan Lombardoebgeovani 06/04/2023 2 [employer] - FOR LIFE (MEDICARE SUPPLEMENT) Gunjan Azeem Grupoebi [id number] Gunjan Azeem Shields Notes Date Note Type Note Provider Name and Address Organization Details Recorded Time 4 text/html HPI Notes: This is a 67 [...] physical therapy without improvement. Flash Grijalva MD [address] [place] [address],[address], [place], [address], [facility] 06/04/2023 14:35:55 OBGyn Episode No OBEpisode recorded.
--- OUTSIDE RECORDS SUMMARY | 2023-08-09 12:10 | XMS_ITS | Clinical Summary ---
Author Name Unknown Organization [facility] Address [address] [place] [address] Care Team Providers Care Rod Machine Operator Name Role Phone Elsewhere, Pcp Primary Care Provider Unavailabl e Source Comments Patient records contain information from all sites at [facility]. For routine questions regarding patient records, call [phone] during business hours, M-F 8:00 AM - 5:00 PM Central Time. Record requests for emergency care only can be directed to [phone] at any time.[facility] Allergies No known active allergies Medications Medication [...] Anemia Iron Deficiency 01/22/2023 Other Thrombocytosis 01/22/2023 Family History Medical History Relation Name Comments Breast cancer Aunt Melanoma Brother Esophageal cancer Father Gastric carcinoma Maternal Grandmother Relation Name Status Comments Aunt Alive Brother Father Maternal Grandmother Social History Tobacco Use Types Packs/Day Years [...] Sex Assigned at Female 04/01/2023 1:14 PM SERVICE CENTER ASSISTANT Gender Identity Female 04/01/2023 1:14 PM SERVICE CENTER ASSISTANT Sexual Orientation Straight 04/01/2023 1: 14 PM SERVICE CENTER ASSISTANT Last Filed Vital Signs Vital Sign Reading Time Taken Comments Blood Pressure 132/70 04/11/2023 2:32 PM SERVICE CENTER ASSISTANT Pulse 57 04/11/2023 2:32 PM SERVICE CENTER ASSISTANT Temperature 36.9 ??C (98.4 ??F) 04/11/2023 2:01 PM CS T Respiratory Rate 13 04/11/2023 2:32 PM SERVICE CENTER ASSISTANT Oxygen Saturation 94% 04/11/2023 2:32 PM SERVICE CENTER ASSISTANT Inhaled Oxygen Concentration - - Weight 110 kg (243 lb 9.7 oz) 04/11/2023 12:07 P M SERVICE CENTER ASSISTANT Height 166.5 cm (5' 5.55) 04/11/2023 12:[address] Body Mass Index 39.86 04/11/2023 12:07 PM SERVICE CENTER ASSISTANT Plan of Treatment Health Maintenance Due Date Last Done Comments Bone Density Scan (Osteoporo sis Screen) 1956 CT Colonography 1956 Cologuard 1956 Colonoscopy 1956 Colorectal Cancer Screening 1956 FIT 1956 Fasting Glucose for Diabetes Screening 1955 Hepatitis C Screening 1955 Mammogram 1956 Zoster Vaccines (1 of 2) 2006 DTaP,Tdap,and Td Vaccines (2 - Td or Tdap) 04/18/2021 04/18/2011 Pneumococcal vaccine (65+ ye ars) (1 of 1 - PCV) 2021 COVID-19 Vaccine ( - 2022-2 4 season) 2023 Influenza Vaccine (#1) 2023 6, 04/05/2015, 03/25/2014, Additional history exists Depression Screening (Annual PHQ-2) 05/06/2023 Fall Risk Screen (Annual) 05/06/2023 Office Visit for Blood Press ure Check / Re-check 07/04/2023 04/04/2023 Care Teams Rod Machine Operator Relationship Specialty Start Date End Date Elsewhere, Pcp PCP - General Internal Medicine 01/22/23
--- OUTSIDE RECORDS SUMMARY | 2023-08-09 12:10 | XMS_ITS ---
Author Name Unknown Organization [facility] Address [address] [place] [address] Care Team Providers Care Sizing Sponger Name Role Phone Unavailable Unavailable Unavailable Surgery Details Not on file Complications Check Surgery Details section. Procedure Estimated Blood Loss Check Surgery Details section. Procedure Findings Check Surgery Details section. Procedure Specimens Taken Check Surgery Details section.
--- OUTSIDE RECORDS SUMMARY | 2023-08-09 12:11 | XMS_ITS | Continuity of Care Document ---
Author Name [facility] Organization [facility] Care Team Providers Care Barrel Loader Name Role Phone [facility] Unavailable Unavailable Problems Combined list of problems from Department of Defense and Veterans Affairs facilities. It does not include entries that were removed or entered in error. Problem Status Onset Date Problem Type Date of Resolution Comments Source Acid reflux Active Condition [facility] Cellulitis (disorder)1 Active Condition Pt s/p trauma 2 months ago with continue soft tissue infection m/b non-healing wound s/p multiple antibiotic courses. 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 Chronic x atleast 4 years. Review of CBC s - multiple- from 2003 to the present shows remarkable stability with plts ranging from high 400K to mid 500K range and [facility] Osteoarthritis (disorder) Active Condition [facility] Parathyroid adenoma Active Condition [facility] Petechiae (finding) Active Condition [facility] Diabetes mellitus type 2 (disorder) Active Condition [facility] Umbilical hernia (disorder)4 Active Condition Will refer to surgeon for their eval and treatment [facility] Ureteric stone (disorder) Active Condition [facility] diabetes mellitus type 2 Active Condition DoD obesity morbid Active Condition DoD visit for: screening malignant neoplasm colon Inactive Condition DoD Outpatient Physician Consultation Inactive Condition DoD ankle joint pain Active Condition DoD diffuse joint pain (arthralgias) Inactive Condition DoD visit for: laboratory Inactive Condition DoD urinary symptoms Inactive Condition DoD visit for: issue repeat prescription Inactive Condition DoD Leg Lower Localized Swelling Left Active Condition DoD cellulitis of left lower leg Inactive Condition DoD pain during urination (dysuria) Active Condition DoD obesity Inactive Condition DoD Guidance: Concerns About Osteoporosis Active Condition DoD breast lump or mass Active Condition Do D bacterial vaginosis Inactive Condition D oD abdominal pain in the right lower belly (RLQ) Active Condition DoD abdominal pain Active Condition DoD Abdomen Tenderness Direct Periumbilical Active Condition Likely related to scar tissue or pts obesity, but refer back to surgeon. DoD urinary symptoms Active Condition Ua essentially neg, ordinarily I would perform renal sono, however pt has an appt on 01/08 with renal specialist for non acute problem indentified on R kidney by ct scan. I explained to pt, I would not do a complete workup on this non acute finding when she has a referral and appt scheduled for this problem. DoD proteinuria Active Condition 24 hour protein, creatinine clearance, US kidneys after cardio eval DoD coronary artery disease Active Condition DoD edema Active Condition routine la bs done in October were abnormal with elevated white count, platelet count, alk phos. Patient said her platelets had been slightly high for several years.chest xray today to look for CHF or cardiomegalyinstruc james patient to go to the nearest ED if she develops chest pain and SOBcardiology consult requested. [facility] overt failure or acute processEKG NSR with no acute ST changes DoD visit for: preoperative cardiovascular exam Inactive Condition DoD chest pain Active Condition patient w ith mildly abnormal mps plan for left heart cath to r/o cad. She is functional class I and essentially 2b indication for cath patient h/e agrees to proceed. consent signedw/ phillip DoD umbilical hernia Active Condition Jeremy l refer to surgeon for their eval and treatment DoD hypertension systemic Active Condition not controlled, explained to pt that in MD they expected her to take her atenolol also and if here BP remains this high, she won't be cleared for surgery. Will rx the atenolol she was supposed to be on and have her keep a BP log and bring to a preop appt DoD visit for: issue repeat prescription for medication Inactive Condition DoD essential hypertension Active Condition increase atenol ol to 50 mg daily DoD esophageal reflux Active Condition DoD essential thrombocytosis Active Condition -Patient has a chronic thrombocytosis ranging from 400K to 600K. 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 Patient does not have a history of thrombotic events, but takes ecotrin 81mg daily. Recommend holding ecotrin one week prior t DoD ureteral stone Active Condition DoD blood in urine Active Condition DoD Need For Vaccination Against Influenza Inactive Condition DoD wound infection Active Condition DoD leukocytosis Inactive Condition DoD diarrhea Inactive Condition Likely abx induce diarrhea. Pt to complete 3 more days of abx then stop. Discussed C.diff with patient - instructed to return if diarrhea worsens, + bloody stool, or fever. DoD cellulitis Active Condition Pt s/p tr auma 2 months ago with continue soft tissue infection m/b non-healing wound s/p multiple antibiotic courses. Cultures to date only positive for corynebacteria not JK and one colony of PARTS SALVAGER which likely represent colonization with normal skin darlene DoD Dressing Change Inactive Condition DoD superficial injury of foot Inactive Condition DoD fracture metacarpal bone(s) Active Condition DoD colonic diverticulosis Active Condition DoD osteoarthritis Active Condition DoD myeloproliferative syndrome Active Condition manifested by chronic neutrophilia and thrombocytopenia in the absence of iron deficiency. Chronic x atleast 4 years. Review of CBC s - multiple- from 2003 to the present shows remarkable stability with plts ranging from high 400K to mid 500K range and DoD backache Inactive Condition review cristy or surgical procedure notes. Some patients who have an sacrospinous ligament fixation have buttock pain or pain radiating into upper leg. CT of kidney normal DoD dyspareunia Active Condition Would re commend physical therapy with Tianna Bond to help with dyspareunia DoD skin disorder petechiae Active Condition DoD closed fracture of cuboid right Active Condition - seen on bone scan- continue hard soled shoe DoD crush injury right foot Active Condition w/ cellulitis..recheck xray if neg consider bone scan. start augmentin and topical bacitracin ointment to blister. Pt declining percocet or ultram. Continue Nsaid DoD vaginal wall prolapse rectocele Active Condition DoD routine pelvic exam Inactive Condition D oD nephrolithiasis Active Condition DoD breast cyst Active Condition DoD Preventive Medicine Established Patient Checkup Adult 40-64 Years Inactive Condition DoD Medications Combined list of outpatient medications from Department of Defense and Veterans Affairs facilities.Medications provided include 1) outpatient medications from the last 15 months, and 2) patient-reported medications. Medication Details Route Status Patient Instructions Prescription Expires Prescription Number Last Dispense Date Ordering Provider Order Date Source amoxicillin 500 mg Cap See Rx Instruct ions, Oral, TID, # 30 EA, 0 total refill(s ), Hard Stop Oral (given by mouth) Complet ed 07/19/2017 Ambul[facility] Pharmac y atenolol 50 mg oral tablet 1 tabs, Oral, Daily, courtesy renewl schedule for annual PE when return to ID, # 90 tabs, 0 total refill(s ), Adeline olson, 1 tabs Oral Daily,In str:becki heather renewl schedule for annual PE when return to ID, Pharmacy : [id number] Oral (given by mouth) Ordered 1485C-A McChord atenolol 50 mg oral tablet 1 tabs, Oral, Daily, # 90 tabs, 3 total refill(s ), Adeline [facility] pharmacy dispense (Rx) Oral (given by mouth) Discont inued 10/28/2018 1485C-A McChord cetirizine 10 mg oral tablet TAKE DIRECTED , Adeline olson Ordered 0125C-A Shahriar diazePAM 5 mg Tab See Rx Instruct ions, # 8 EA, 1 total refill(s ), Hard Stop Complet ed 12/25/2017 Ambulat ory Pharmac y ergocalcife rol 50,000 intl units (1.25 mg) oral capsule ergocalc iferol 50,000 intl units (1.25 mg) oral capsule Start Date: 02/13/17 Stop Date: 07/24/17 Status: Disconti nued Discont inued 07/24/2017 No Facilit y Access ergocalcife rol 50,000 intl units (1.25 mg) oral capsule 1 cap, Oral, every week, # 12 cap, 3 total refill(s ), Adeline [facility] pharmacy dispense (Rx) Oral (given by mouth) Ordered 0125C-A Shahriar ibuprofen 400 mg oral tablet 1 tabs, Oral, every 4 hr, PRN fever, Do not to exceed 3200 mg/day. Try to take Tylenol first before Ibuprofe n., # 60 tabs, 0 total refill(s ), Adeline [facility] pharmacy dispense (Rx) Oral (given by mouth) Ordered 1485C-A Devonhord ibuprofen 800 mg oral tablet 1 tabs, Oral, TID, PRN pain, # 60 tabs, 3 total refill(s ), [facility] Oral (given by mouth) Discont inued 10/08/2017 0125C-A Shahriar omeprazole 10 mg oral delayed release capsule omeprazo le 10 mg oral delayed release capsule Start Date: 02/13/17 Status: Ordered Ordered No Facilit y Access omeprazole 20 mg oral delayed release capsule 1 cap, Oral, Daily, Take 30 minutes before meal., # 30 cap, 3 total refill(s ), [facility] pharmacy dispense (Rx) Oral (given by mouth) Ordered 1485C-A HC McChord Tylenol 325 mg oral tablet 1 tabs, Oral, every 4 hr, PRN pain or fever, Do not to exceed 4000 mg/day. Take 1-2 tab for aches/pa in before you try Ibuprofe n., # 100 tabs, 3 total refill(s ), [facility] pharmacy dispense (Rx) Oral (given by mouth) Ordered 1485C-A HC McChord Tylenol 325 mg oral tablet 1 tabs, Oral, every 4 hr, PRN pain or fever, # 100 tabs, 3 total refill(s ), [facility] pharmacy dispense (Rx) Oral (given by mouth) Discont inued 10/08/2017 0125C-A Shahriar Allergies, Adverse Reactions, Alerts Combined list of allergies from Department of Defense and Veterans Affairs facilities. It does not include entries that were removed or entered in error. Substance Category Reaction Severity Reaction type Status Date Reported Comments Source NO OUTPUT FOR NCID [id number] Drug allergy (disorder) active 12/26/2007 [facility] Immunizations Combined list of available immunizations from the Department of Defense and Veterans Affairs facilities. Immunization Series Date Given Administered By Site Reaction Lot Number CVX Code Drug Insurance Operations Rep Status Comments Source Influenza, seasonal, injectable, preservative free 1 2015 Unknown, Provider [id number] [employer] (SEQ) complet ed Influenza , seasonal, injectabl e, preservat brittani free DoD Influenza, injectable, quadrivalent, preservative free 1 2014 Unknown, Provider [id number] [employer] (SKB) complet ed Influenza , injectabl e, quadrival ent, preservat brittani free [facility] Influenza, seasonal, injectable 1 2013 Unknown, Provider [id number] (IDB) complet ed Influenza , seasonal, injectabl e DoD Influenza, seasonal, injectable 1 2013 Unknown, Provider [id number] Sanofi Pasteur ([facility]) complet ed Influenza , seasonal, injectabl e DoD Influenza, seasonal, injectable 6 2011 Unknown, Provider [id number] [facility] Uberseq, Clone. (CS) complet ed Influenza , seasonal, injectabl e DoD tetanus toxoid, reduced diphtheria toxoid, and acellular pertu is vaccine, adsorbed 1 2010 Unknown, Provider [id number] 115 [facility] (SKB) complet ed tetanus toxoid, reduced diphtheri a toxoid, and acellular pertussis vaccine, adsorbed DoD Influenza, seasonal, injectable 5 2010 Unknown, Provider [id number] Sanofi Pasteur ([facility]) complet ed Influenza , seasonal, injectabl e DoD influenza virus vaccine, split virus (incl. purified surface antigen)-reti red CODE 1 2008 Unknown, Provider [id number] 15 Sanofi Pasteur ([facility]) complet ed influenza virus vaccine, split virus (incl. purified surface antigen)- retired CODE DoD influenza virus vaccine, split virus (incl. purified surface antigen)-reti red CODE 1 2007 Unknown, Provider [id number] 15 Sanofi Pasteur ([facility]) complet ed influenza virus vaccine, split virus (incl. purified surface antigen)- retired CODE DoD influenza virus vaccine, split virus (incl. purified surface antigen)-reti red CODE 1 2006 Unknown, Provider [id number] 15 [facility] ([facility]) complet ed influenza virus vaccine, split virus (incl. purified surface antigen)- retired CODE DoD tetanus and diphtheria toxoids, adsorbed, preservative free, for adult use (2 Lf of tetanus toxoid and 2 Lf of diphtheria toxoid) 1 2003 Unknown, Provider [id number] Sanofi Pasteur ([facility]) complet ed tetanus and diphtheri a toxoids, adsorbed, preservat brittani free, for adult use (2 Lf of tetanus toxoid and 2 Lf of diphtheri a toxoid) DoD influenza virus vaccine, whole virus 1 2002 Unknown, Provider [id number] [employer] (PW) complet ed influenza virus vaccine, whole virus DoD Results Combined list of recent chemistry, hematology and other laboratory results from Department of Defense and Veterans Affairs, ranging from 15 months to all on record, depending upon the facility. Order Name Results Value Reference Range Date Interpretation Specimen Comments Source Urinalys is UA pH 5.5 *NA* (10/08/17 11:33 AM) 10/08 [facility] Urinalys is UA Color Yellow (10/08/17 11:33 AM) 10/08 N [facility] Urinalys is UA Appear Clear (10/08/17 11:33 AM) 10/08 N [facility] Urinalys is UA Spec [place] 1.025 *NA* (10/08/17 11:33 AM) 10/08 [facility] Urinalys is UA Glucose Negative (10/08/17 11:33 AM) 10/08 N [facility] Urinalys is UA Ketones Negative (10/08/17 11:33 AM) 10/08 N [facility] Urinalys is UA Blood Negative (10/08/17 11:33 AM) 10/08 N [facility] Urinalys is UA Protein Negative (10/08/17 11:33 AM) 10/08 N [facility] Urinalys is UA Bili Negative (10/08/17 11:33 AM) 10/08 N [facility] Urinalys is UA Urobilinog en 0.2 (10/08/17 11:33 AM) 10/08 N [facility] Urinalys is UA Nitrite Negative (10/08/17 11:33 AM) 10/08 N [facility] Urinalys is UA Leuk Esterase Negative (10/08/17 11:33 AM) 10/08 N [facility] Urinalys is UA Micro Ind? Not Indicate d (10/08/17 11:33 AM) 10/08 N [facility] Chemistr y PTH Intact 59.6 pg/mL 15.0 - 67.0 10/08 N Interpretiv e Data: Ingestion of Biotin or Biotin-cont aining supplements >5 mg/day within 8 hours of specimen collection has known interferenc e on the result of this test. [facility] Chemistr y TSH 1.010 uIU/mL 0.270 - 4.320 10/08 N Interpretiv e Data: Ingestion of Biotin or Biotin-cont aining supplements >5 mg/day within 8 hours of specimen collection has known interferenc e on the result of this test. [facility] Chemistr y eAvg Glucose 108 mg/dL 10/08 [facility] Chemistr y Hemoglobin A1c 5.4 % 4.3 - 5.9 10/08 N [facility] Hematolo gy WBC 14.9 10^3/uL 4.5 - 13.0103 10/08 H [facility] Hematolo gy RBC 4.59 10^6/uL 3.80 - 5.96243 10/08 N [facility] Hematolo gy Hemoglobin 13.6 g/dL 10.0 - 15.0 10/08 N [facility] Hematolo gy Hematocrit 42 % 34 - 45 10/08 N [facility] Hematolo gy MCV 92 fL 80 - 98 10/08 N [facility] Hematolo gy MCH 29.6 pg 26.7 - 33.7 10/08 N [facility] Hematolo gy MCHC 32.2 g/dL 32.5 - 37.5 10/08 L [facility] Hematolo gy RDW 14.2 % 11.5 - 15.0 10/08 N [facility] Hematolo gy Platelets 436 10^3/uL 140 - [id number] 10/08 H [facility] Hematolo gy MPV 10.2 fL 7.0 - 12.0 10/08 N [facility] Chemistr y BUN/Creat Ratio 23 7 - 25 10/08 N [facility] Chemistr y Sodium 143 mmol/L 135 - 145 10/08 N [facility] Chemistr y Potassium Lvl 4.4 mmol/L 3.5 - 5.1 10/08 N [facility] Chemistr y Chloride 103 mmol/L 98 - 107 10/08 N [facility] Chemistr y AGAP 15 mmol/L 7 - 16 10/08 N [facility] Chemistr y Osmo Calc 298 mOsm/kg 277 - 308 10/08 N [facility] Chemistr y Glucose Lvl 96 mg/dL 74 - 109 10/08 N Interpretiv e Data: Glucose reference intervals for neonates not validated for population. Interpret with caution. [facility] Chemistr y BUN 19.0 mg/dL 6.0 - 23.0 10/08 N [facility] Chemistr y CO2 25 mmol/L 22 - 31 10/08 N [facility] Chemistr y Creatinine Level 0.82 mg/dL 0.50 - 1.00 10/08 N [facility] Chemistr y Calcium 9.0 mg/dL 8.6 - 10.3 10/08 N [facility] Chemistr y ALT 5 U/L 0 - 33 10/08 N [facility] Chemistr y AST 10 U/L 0 - 35 10/08 N [facility] Chemistr y Bilirubin Total 0.30 mg/dL 0.15 - 1.20 10/08 N [facility] Chemistr y Alk Phos 109 U/L 35 - 104 10/08 H [facility] Chemistr y Albumin 4.4 g/dL 3.5 - 5.2 10/08 N [facility] Chemistr y Protein Total 7.6 g/dL 6.6 - 8.7 10/08 N [facility] Chemistr y Bilirubin Direct <0.2 mg/dL 0.0 - 0.3 10/08 N [facility] Chemistr y Vitamin D 25 OH 23 ng/mL 30 - 60 10/08 L Interpretiv e Data: Endocrine Society consensus guidelines for Vitamin D status: Sufficiency : Greater Than or Equal to 30 ng/mL Insufficien cy: 10-29 ng/mL Deficiency: Less than 10 ng/mL Potential Toxicity: Greater than 100 ng/mL J Clin Endocrinol Metab. 2011; 96(7): 4689-2562. [facility] Chemistr y eGFR AA 90 mL/min/1 .73_m2 10/08 N [facility] Chemistr y eGFR Non-AA 78 mL/min/1 .73_m2 10/08 L [facility] Urinalys is UA Color Light Yellow 07/30 [facility] Urinalys is UA Appear Clear 07/30 [facility] Urinalys is UA pH 7.0 07/30 [facility] Urinalys is UA Spec [place] 1.015 1.001 - 1.030 07/30 N [facility] Urinalys is UA Glucose Negative 07/30 [facility] Urinalys is UA Ketones Negative 07/30 [facility] Urinalys is UA Blood Negative 07/30 [facility] Urinalys is UA Protein Negative 07/30 [facility] Urinalys is UA Bili Negative 07/30 [facility] Urinalys is UA Urobilinog en Normal (07/30/17 1:17 PM) 0.2 - 1.0 07/30 N [facility] Urinalys is UA Nitrite Negative 07/30 [facility] Urinalys is UA Leuk Esterase Negative 07/30 [facility] Urinalys is UA WBC 1 /HPF 07/30 N [facility] Urinalys is UA RBC 3 /HPF 0 - 8 07/30 N [facility] Urinalys is UA Bacteria Present 07/30 [facility] Urinalys is UA Epi Squam 1 /HPF 0 - 1 07/30 N [facility] Urinalys is UA Hyaline Cast 1 /LPF 0 - 1 07/30 N [facility] Chemistr y Magnesium Lvl 2.40 mg/dL 1.60 - 2.60 07/30 N [facility] Chemistr y Phosphorus 3.70 mg/dL 2.50 - 4.50 07/30 N [facility] Chemistr y TSH 0.942 uIU/mL 0.270 - 4.320 07/30 N Interpretiv e Data: Ingestion of Biotin or Biotin-cont aining supplements >5 mg/day within 8 hours of specimen collection has known interferenc e on the result of this test. [facility] Chemistr y Vitamin D 25 OH 23 ng/mL 30 - 60 07/30 L Interpretiv e Data: Endocrine Society consensus guidelines for Vitamin D status: Sufficiency : Greater Than or Equal to 30 ng/mL Insufficien cy: 10-29 ng/mL Deficiency: Less than 10 ng/mL Potential Toxicity: Greater than 100 ng/mL J Clin Endocrinol Metab. 2011; 96(7): 6255-6575. [facility] Hematolo gy WBC 12.0 10^3/uL 4.5 - 13.0103 07/30 N [facility] Hematolo gy RBC 4.82 10^6/uL 3.80 - 5.54859 07/30 N [facility] Hematolo gy Hemoglobin 14.0 g/dL 10.0 - 15.0 07/30 N [facility] Hematolo gy Hematocrit 44 % 34 - 45 07/30 N [facility] Hematolo gy MCV 91 fL 80 - 98 07/30 N [facility] Hematolo gy MCH 29.0 pg 26.7 - 33.7 07/30 N [facility] Hematolo gy MCHC 32.0 g/dL 32.5 - 37.5 07/30 L [facility] Hematolo gy RDW 14.1 % 11.5 - 15.0 07/30 N [facility] Hematolo gy Platelets 338 10^3/uL 140 - [id number] 07/30 N [facility] Hematolo gy MPV 9.6 fL 7.0 - 12.0 07/30 N [facility] Hematolo gy Differenti al? Auto (07/30/17 12:22 PM) 07/30 N [facility] Hematolo gy Neutrophil % Auto 69.2 % 38.5 - 76.5 07/30 N [facility] Hematolo gy Lymphocyte % Auto 23.9 % 14.0 - 46.0 07/30 N [facility] Hematolo gy Monocyte % Auto 4.8 % 3.0 - 13.0 07/30 N [facility] Hematolo gy Eosinophil % Auto 1.1 % 0.0 - 7.4 07/30 N [facility] Hematolo gy Basophil % Auto 0.5 % 0.0 - 2.5 07/30 N [facility] Hematolo gy Imm. Granulocyt e % 0.5 % 0.0 - 2.0 07/30 N [facility] Hematolo gy Neutro Absolute 8.30 10^3/uL 1.30 - 6.93385 07/30 H [facility] Hematolo gy Lymph Absolute 2.9 10^3/uL 0.9 - 3.0103 07/30 N [facility] Hematolo gy [place] Absolute 0.6 10^3/uL 0.2 - 0.9103 07/30 N [facility] Hematolo gy Eos Absolute 0.1 10^3/uL 0.0 - 0.4103 07/30 N [facility] Hematolo gy Baso Absolute 0.1 10^3/uL 0.0 - 0.2103 07/30 N [facility] Hematolo gy nRBC % Auto 0.0 % 0.0 - 5.0 07/30 N [facility] Hematolo gy nRBC Absolute 0.0 10^3/uL 0.0 - 2.0103 07/30 N [facility] Hematolo gy Imm. Granulocyt e Absolute 0.1 10^3/uL 0.0 - 2.0103 07/30 N [facility] Chemistr y PTH Intact 75.7 pg/mL 15.0 - 67.0 07/22 H Interpretiv e Data: Ingestion of Biotin or Biotin-cont aining supplements >5 mg/day within 8 hours of specimen collection has known interferenc e on the result of this test. [facility] Chemistr y Calcium 9.1 mg/dL 8.6 - 10.3 07/22 N [facility] Vital Signs Combined list of inpatient and outpatient Vital Signs from Department of Defense and Veterans Affairs, ranging from 12 months to all on record, depending upon the facility. Vital Sign Value Date Comments Source Systolic Blood Pressure 132mm[Hg] 10/08/2017 15:41:00 Ambulatory [facility]acy Diastolic Blood Pressure 87mm[Hg] 10/08/2017 15:41:00 [facility]ulatory Pharmacy Respiratory Rate 16br/min 10/08/2017 15:41:00 [facility]ulatory [facility] Peripheral Pulse Rate 64bpm 10/08/2017 15:41:00 [facility] Mean Arterial Pressure, Calc 102mm[Hg] 10/08/2017 15:41:00 Ambulatory [facility] Systolic Blood Pressure 140mm[Hg] 07/24/2017 21:58:00 Ambulatory Pharmacy Diastolic Blood Pressure 72mm[Hg] 07/24/2017 21:58:00 [facility] Respiratory Rate 16br/min 07/24/2017 21:58:00 [facility] Temperature Tympanic 36.4Cel 07/24/2017 21:58:00 [facility]ulatory [facility] Peripheral Pulse Rate 59bpm 07/24/2017 21:58:00 [facility] Mean Arterial Pressure, Calc 95mm[Hg] 07/24/2017 21:58:00 Ambulatory P harmacy Encounters Combined list of: 1) Encounters from Department of Veterans Affairs facilities going back up to thelast 18 months. 2) Encounters from the Department of [facility] [place] facilities going back up to 280 months. Location Location Details Encounter Type Encounter Number Reason For Visit Attending Provider ADM Date DC Date Status Disposition Source [facility](In t [facility]) OUTPATIENT [id number] PLS EVAL PT FOR POSSIBL E KIDNEY INFECTI ON [place] 08/14 Released w/o Limitations [facility]( [facility]) [facility]In [facility]) OUTPATIENT [id number] [place] 08/29 Released w/o Limitations [facility]( Int [facility]) [facility]) OUTPATIENT [id number] trouble urinati ng and flank pain ALYSON CHILDRESS 08/31 Released w/o Limitations [facility]( [facility]) [facility](ZZ Gynecolog [facility]) OUTPATIENT [id number] routine exam BRET GANN 09/04 Released w/o Limitations [facility]( ZZGynec olog Cl WR) [facility](In t [facility] WR) OUTPATIENT [id number] YULI CASTANON 10/02 Released w/o Limitations [facility]( Int Med PCC WR) [facility](In t [facility] WR) OUTPATIENT [id number] CHECK UP SUMEET CAMPOS 10/04 Released w/o Limitations [facility]( Int Med PCC WR) [facility](Or tho Cast WR) OUTPATIENT [id number] STEVIE HAYES 10/05 Released with Work/Duty Limitations [facility]( Ortho Cast WR) [facility](Or tho Cast WR) OUTPATIENT [id number] as per STEVIE Garcia 10/16 Released with Work/Duty Limitations [facility]( Ortho Cast WR) [facility](In t [facility] WR) OUTPATIENT [id number] PECHATY, SUMEET A 10/17 Released w/o Limitations [facility]( Int Med PCC WR) [facility](In t [facility] WR) TELE CONSULT [id number] blood work PECHATY, SUMEET A 10/19 [facility]( Int [facility] WR) [facility](Ur ol Incont Cl WR) OUTPATIENT [id number] PELVIC/ UDT/CYS TO SHAKIRCLARKSHLOMOMARK 10/24 Released w/o Limitations [facility]( Urol Incont Cl WR) [facility](ZZ Oncology Cl WR) OUTPATIENT [id number] RUTH SHARMA 10/24 Released w/o Limitations [facility]( ZZOncol ogy Cl WR) [facility](In t [facility] WR) TELE CONSULT [id number] mri for broken left foot PECHATY, SUMEET A 11/15 [facility]( Int [facility] PCC WR) [facility](In t [facility] WR) TELE CONSULT [id number] Foot PECHATY, SUMEET A 11/26 [facility]( Int [facility] PCC WR) [facility](In t [facility] WR) OUTPATIENT [id number] PECHATY, SUMEET A 11/27 Released w/o Limitations [facility]( Int [facility] WR) [facility](In t [facility] WR) TELE CONSULT [id number] foot infecti on PECHATY, SUMEET A 11/28 [facility]( Int [facility] WR) [facility](In t [facility] WR) TELE CONSULT [id number] radiolo gy called unbable to process r foot xray order was placed for left CAILIN HOOD 12/03 [facility]( Int Med PCC WR) [facility](ZZ Ortho [facility] WR) OUTPATIENT [id number] FRANCOISE HERRERA 12/11 Released w/o Limitations [facility]( ZZOr[facility]o Clinic WR) [facility](ZZ [facility]o [facility] WR) OUTPATIENT [id number] FRANCOISE HERRERA 12/13 Released w/o Limitations [facility]( ZZOrtho Clinic WR) [facility](In fect Di Cl WR) OUTPATIENT [id number] CLAUDETTE GODINEZ 12/17 Released w/o Limitations [facility]( Infect Di Cl WR) [facility](In t Med PCC WR) TELE CONSULT [id number] CAILIN HOOD 12/17 [facility]( Int Med PCC WR) [facility](ZZ Ortho Clinic WR) OUTPATIENT [id number] JAVIERFRANCOISE Rachelle 04/03 Released w/o Limitations [facility]( [facility]Ortho Clinic WR) [facility](Al lergy Cl WR) OUTPATIENT [id number] flu/ bcsw FONG, CYNTHIA James 04/03 Released w/o Limitations [facility]( Allergy Cl WR) [facility](In t Med PCC WR) OUTPATIENT [id number] bladder infecti on RODRIGUEZJON 05/09 Released w/o Limitations [facility]( Int Med PCC WR) [facility](In t Med PCC WR) TELE CONSULT [id number] LAB RESULTS JON RODRIGUEZ 05/10 [facility]( Int Med PCC WR) [facility](In t Med PCC WR) OUTPATIENT [id number] red urine PECHATY, SUMEET A 05/28 Released w/o Limitations [facility]( Int Med PCC WR) [facility](In t Med PCC WR) OUTPATIENT [id number] f/u for renal stonens PECHATY, SUMEET A 06/19 Released w/o Limitations [facility]( Int Med PCC WR) [facility](In t Med PCC WR) TELE CONSULT [id number] PECHATY, SUMEET A 06/25 [facility]( Int [facility] PCC WR) [facility](Ur ology Cl FB) OUTPATIENT [id number] KIDNEY STONES DESHAWN BRYSON 07/01 Released w/o Limitations [facility]( Urology Cl FB) [facility](Ur ology Cl FB) OUTPATIENT [id number] PRE-OP FOR SURGERY . DESHAWN BRYSON 07/05 Released w/o Limitations [facility]( Urology Cl FB) [facility](In t Med PCC WR) OUTPATIENT [id number] pt need stomach check PECHATY, SUMEET A 07/29 Released w/o Limitations [facility]( Int Med PCC WR) [facility](ZZ Gen Surg Cl WR) OUTPATIENT [id number] UMBILIC AL HERNIA CHEKO PONO 08/06 Released with Work/Duty Limitations [facility]( ZZGen Surg Cl WR) [facility](In t Med PCC WR) TELE CONSULT [id number] concern s CAILIN HOOD Juan 08/08 [facility]( Int Med PCC WR) [facility](ZZ Gen Surg Cl WR) OUTPATIENT [id number] JENNIFER APPT CHEKO PONO Jerson 08/30 Released w/o Limitations [facility]( ZZGen Surg Cl WR) [facility](In t Med PCC WR) OUTPATIENT [id number] MELI THAYER 09/03 Released w/o Limitations [facility]( Int Med PCC WR) [facility](In t Med PCC WR) OUTPATIENT [id number] AR SANTIAGO 09/09 Released w/o Limitations [facility]( Int Med PCC WR) [facility](Ca rdiolog Cl WR) OUTPATIENT [id number] JARRETT SPARKS 09/13 Released w/o Limitations [facility]( Cardiol og Cl WR) [facility](Ca rdiolog Cl WR) OUTPATIENT [id number] pre-cat berry KIM GRAY 09/13 Released w/o Limitations [facility]( Cardiol og Cl WR) [facility](Ca rdiolog Cl WR) TELE CONSULT [id number] Call back after cath september 09. NOA ANDUJAR 09/18 [facility]( Cardiol og Cl WR) [facility](ZZ Gen Surg Cl WR) OUTPATIENT [id number] FOLLOW- UP APPT CHEKO POON Jerson 09/24 Released w/o Limitations [facility]( ZZGen Surg Cl WR) nd [employer](F amily Practice Team 1) OUTPATIENT [id number] hernia EMILIA STOKESANDA Asher 04/21 Released w/o Limitations [employer] (Family Practic e Team 1) [facility] [employer](F amily Practice Team 1) TELE CONSULT [id number] SAM BARON 10/13 [employer] (Family Practic e Team 1) [employer] [employer]([facility] amily Practice Team 1) OUTPATIENT [id number] feet SAM Shipman 12/02 Released w/o Limitations [employer] [employer] (Family Practic e Team 1) [employer] [employer]F am[place] Practice Team 1) TELE CONSULT [id number] referSAM Sharpe 12/08 [employer] [employer] (Family Practic e Team 1) [employer] [employer](F amily Practice Team 1) TELE CONSULT [id number] BRIGITTE Beatty 12/15 [employer] [employer] (Family Practic e Team 1) [employer] [employer] am[facility] Practice Team 1) OUTPATIENT [id number] stomach pain. ELVIRA GARLAND 12/25 Released w/o Limitations [employer] [place] [employer] (Family Practic e Team 1) [employer] [employer](F amily Practice Team 1) TELE CONSULT [id number] NEHEMIAH Dickens 09/23 [employer] [employer] (Family Practic e Team 1) [employer] [employer](F amily Practice Team 2) OUTPATIENT [id number] Urgent care f/u/pt in pain LOR NUÑEZ 09/26 Released w/o Limitations [employer] [place] [employer] (Family Practic e Team 2) [employer] [employer](F amily Practice Team 2) TELE CONSULT [id number] Lab Review/ Need for consult LOR NUÑEZ 09/26 [employer] [employer] (Family Practic e Team 2) [employer] [employer](F amily Practice Team 1) OUTPATIENT [id number] Chronic Side/Ab dominal pain NEHEMIAH PEREZ 09/29 Released w/o Limitations [employer] [employer] (Family Practic e Team 1) [employer] [employer]( ynecology Clinic) OUTPATIENT [id number] annual LILIA KIM Rachelle 01/23 Released w/o Limitations [employer] [employer] (Gyneco logy Clinic) [employer] [employer] y[place] Clinic) TELE CONSULT [id number] Discuss lab results LILIA KIM Rachelle 02/01 [employer] [employer] (Gyneco logy Clinic) [employer] [employer]([facility] Practice Team 2) OUTPATIENT [id number] rash/ce lluliELVIRA Echavarria 07/07 Released w/o Limitations [employer] [employer] ([facility] e Team 2) [employer] [employer]([facility] Team D) TELE CONSULT [id number] Medicat ion MATEO Bishop RN 06/26 [employer] [place] [employer] ([facility] Team D) [employer] [employer]([facility] Team D) OUTPATIENT [id number] Swollen Foot, Abdomin al Pain NEHEMIAH PEREZ 07/23 Released w/o Limitations [employer] [place] [employer] ([facility] Team D) [employer] [employer]([facility] Team D) OUTPATIENT [id number] f/u lab/abd pain NEHEMIAH PEREZ 08/15 Released w/o Limitations [employer] [place] [employer] ([facility] Team D) [employer] [employer]([facility] Team D) TELE CONSULT [id number] Notes Entered by: ALYSHA HARDEN 17 Aug 2011 1035 ------- ------- ------- ------- -- Gunjan request CT not x-ray would like for you to advise return call [phone]. MATEO VYAS RN 08/16[employer] [place] [employer] ([facility] Team D) [employer] [place] [employer]([facility] Team A) TELE CONSULT [id number] Notes Entered by: ROMELIA AGUERO 22 Aug 2011 0938 ------- ------- ------- ------- -- Kieran rao [facility]. MATEO Cuba RN 08/21[employer] [place] [employer] ([facility] Team A) nd [employer] [employer]([facility] Team D) OUTPATIENT [id number] f/u NEHEMIAH PEREZ 09/06 Released w/o Limitations [facility] [employer] [place] [employer] ([facility] Team D) nd [employer] [employer]([facility] Team D) TELE CONSULT [id number] Notes Entered by: SHAKIR DIMAS 08 Jan 2012 1321 ------- ------- ------- ------- -- MATEO Gentile RN 01/07[employer] [place] [employer] ([facility] Team D) [employer] [employer]([facility] Team D) TELE CONSULT [id number] Notes Entered by: CHAVEZ LLOYD 19 May 2012 1513 ------- ------- ------- ------- -- Network Results - Surgery - 05/2012 NEHEMIAH PEREZ 05/19 [employer] [employer] ([facility] Team D) [employer] [employer]([facility] Team D) TELE CONSULT [id number] Notes Entered by: KYLER MARIEE 02 Jul 2012 1542 ------- ------- ------- ------- -- Medicat ion renewal EDMUNDAMPARORA Martinez 07/02 Referred for Appointment [employer] [employer] ([facility] Team D) [employer] [place] [employer]([facility] Team A) TELE CONSULT [id number] Notes Entered by: Jerson GILBERT 30 Jul 2012 0923 ------- ------- ------- ------- -- Med renewal EDMUND CHAUNCEY R 07/30 Medication Refill [employer] [employer] ([facility] Team A) [employer] [place] [employer]([facility] Team D) OUTPATIENT [id number] f/u htn NEHEMIAH PEREZ 08/07 Released w/o Limitations [employer] [employer] ([facility] Team D) [employer] [place] [employer]([facility] Team D) OUTPATIENT [id number] F/U Labs and EKG NEHEMIAH PEREZ 08/14 Released w/o Limitations [employer] [employer] ([facility] Team D) [employer] [employer]([facility] Team A) TELE CONSULT [id number] Notes Entered by: ROMELIA AGUERO 20 Oct 2013 1542 ------- ------- ------- ------- -- Hip pain x 6 weeks, wants appt prior to [id number]. [phone] 0PATRIZIA Servin. 10/20[employer] [employer] ([facility] Team A) [employer] [employer]([facility] Team A) TELE CONSULT [id number] Notes Entered by: ABILIO WELLINGTON RN 23 Oct 2013 1525 ------- ------- ------- ------- -- PATRIZIA Hedrick 10/23[employer] [employer] ([facility] Team A) nd [employer] [employer]([facility] Team A) OUTPATIENT [id number] right hip pain DESHAWN SHEIKH 10/28 Released w/o Limitations [employer] [employer] ([facility] Team A) [employer] [employer]([facility] Team A) OUTPATIENT [id number] BP Check DESHAWN SHEIKH 11/13 Released w/o Limitations [employer] [place] [employer] ([facility] Team A) [employer] [employer]([facility] Team A) TELE CONSULT [id number] Notes Entered by: RADHA SHEIKH 18 Nov 2013 0730 ------- ------- ------- ------- -- Lab results DESHAWN SHEIKH 11/18 [employer] [employer] ([facility] Team A) [employer] [employer]([facility] Team Z) OUTPATIENT [id number] Notes Entered by: DION MCCOLLUM RN 24 Nov 2013 1029 ------- ------- ------- ------- -- Dm group class DION MCCOLLUM RN 11/24 Released w/o Limitations [employer] [employer] ([facility] Team Z) [employer] [place] [employer]([facility]) OUTPATIENT [id number] Notes Entered by: JYOTI TALLEY 24 Nov 2013 1510 ------- ------- ------- ------- -- Diabete s Class MENDEL TALLEY 11/24 Released w/o Limitations [employer] [employer] ([facility]ut[facility] ion [facility]) [employer] [place] [employer] [employer]([facility] Team Z) TELE CONSULT [id number] Notes Entered by: DION MCCOLLUM RN 25 Nov 2013 1507 ------- ------- ------- ------- -- Dm f/u phone call DION MCCOLLUM RN 11/25 [employer] [place] [employer] ([facility] Team [facility]) [employer] [place] [employer]([facility] Team A) OUTPATIENT [id number] f/u on diabete s DESHAWN SHEIKH 12/01 Released w/o Limitations [employer] [employer] ([facility] Team A) [employer] [place] [employer]([facility] Team A) TELE CONSULT [id number] Notes Entered by: ROMELIA AGUERO 29 Dec 2013 0912 ------- ------- ------- ------- -- Network results - 12/2013 PATRIZIA WHALEN 08/26 /2014 [employer] [employer] ([facility] Team A) [employer] [employer]([facility] Team A) TELE CONSULT [id number] Notes Entered by: PREM BOYER 18 Jan 2014 1421 ------- ------- ------- ------- -- Network Results - AUDIO 01/2014 . [facility] DESHAWN SHEIKH 01/18 [employer] [employer] ([facility] Team A) [employer] [employer]([facility] Team A) TELE CONSULT [id number] Notes Entered by: ROMELIA AGUERO 01 Feb 2014 0912 ------- ------- ------- ------- -- Network results - PT - 01/2014 DESHAWN SHEIKH 02/01 [employer] [employer] ([facility] Team A) [employer] [employer]([facility] Team B) TELE CONSULT [id number] Notes Entered by: CHAVEZ LLOYD 01 Feb 2014 1605 ------- ------- ------- ------- -- Network Results - [facility] - 01/2014 DESHAWN SHEIKH 02/01 [employer] [employer] ([facility] Team B) [employer] [employer]([facility] Team A) TELE CONSULT [id number] Notes Entered by: ROMELIA AGUERO 06 Mar 2014 0835 ------- ------- ------- ------- -- Network results - PT dischar - 03/2014 DESHAWN SHEIKH 03/06 [employer] [employer] ([facility] Team A) [employer] [employer]([facility] Team A) OUTPATIENT [id number] Notes Entered by: SINGH GONZALEZ 19 Jul 2014 1436 ------- ------- ------- ------- -- walk in Mayra [place] JAVIER Pura 07/19 Released w/o Limitations [employer] [place] [employer] [employer] ([facility] Team A) nd [employer] [employer]([facility] Team Z) TELE CONSULT [id number] Notes Entered by: RHIANNON SHAFFER 30 Jul 2014 1212 ------- ------- ------- ------- -- Follow up appoint MAMADOU Cullen 07/30 Referred for Appointment [employer] [employer] ([facility] Team Z) [employer] [employer]([facility] Team A) TELE CONSULT [id number] Notes Entered by: CHAVEZ LLOYD 30 Jul 2014 1437 ------- ------- ------- ------- -- Pt had appende ctomy [id number] . Experie nce some chest pain. JUAN ALBERTO Brown 07/30 Referred for Appointment [employer] [place] [employer] ([facility] Team A) [employer] [employer]([facility] Team A) TELE CONSULT [id number] Notes Entered by: ILANA LOZANO 04 Aug 2014 1312 ------- ------- ------- ------- -- Network Results - ER - 08/2014 DESHAWN SHEIKH 08/04[facility] [employer] [facility] [employer] [place] [employer] ([facility] Team A) [employer] [employer]([facility] Team A) OUTPATIENT [id number] cardiol ogy referDESHAWN Hicks 08/18 Released w/o Limitations [employer] [employer] ([facility] Team A) [employer] [employer]([facility] Team A) TELE CONSULT [id number] Notes Entered by: PEARL MCKENZIE 26 Aug 2014 1618 ------- ------- ------- ------- -- Lab results JUAN ALBERTO ALLISON 08/26 Referred for Appointment [employer] [employer] ([facility] Team A) [employer] [employer]([facility] Team A) TELE CONSULT [id number] Notes Entered by: ROMELIA AGUERO 27 Aug 2014 0852 ------- ------- ------- ------- -- Pt would like call back Re: lab results , forgot to ask for numbers . JUAN ALBERTO Pelaez 08/27 Referred for Appointment [employer] [employer] ([facility] Team A) [employer] [employer]([facility] Team C) OUTPATIENT [id number] lab follow up KATHY CHILD 09/03 Released w/o Limitations [employer] [employer] ([facility] Team C) [employer] [place] [employer]([facility] Team C) TELE CONSULT [id number] Notes Entered by: KATHY WARREN 03 Sep 2014 2110 ------- ------- ------- ------- -- Labs JUAN ALBERTO ALLISON 09/04 Referred for Appointment [employer] [employer] ([facility] Team C) [employer] [employer]([facility] Team A) TELE CONSULT [id number] Notes Entered by: CHAVEZ LLOYD 08 Sep 2014 0815 ------- ------- ------- ------- -- Pt req results of Lab work [address] [phone]. [phone]. JUAN ALBERTO Brown 09/08 Referred for Appointment [employer] [employer] ([facility] Team A) [employer] [place] [employer]([facility] Team C) TELE CONSULT [id number] Notes Entered by: KATHY WARREN 09 Sep 2014 2057 ------- ------- ------- ------- -- PTH nml JUAN ALBERTO ALLISON 09/10 Referred for Appointment [employer] [employer] ([facility] Team C) [employer] [place] [employer]([facility] Team C) TELE CONSULT [id number] Notes Entered by: KATHY WARREN 10 Sep 2014 1304 ------- ------- ------- ------- -- Low JUAN ALBERTO Hawkins 09/10 Referred for Appointment [employer] [employer] ([facility] Team C) [employer] [employer]( ynecology Clinic) TELE CONSULT [id number] Notes Entered by: CHAVEZ LLOYD 10 Sep 2014 1630 ------- ------- ------- ------- -- Pain in L breast. Would like seen prior to next availab le [facility] appt. NORM Dinero 09/10 Referred for Appointment [employer] [place] [employer] ([facility]) [employer] [employer](G ynecology Clinic) OUTPATIENT [id number] L breast pain KATHY MARTIN L 09/13 Released w/o Limitations [employer] [employer] ([facility]y Clinic) [employer] [employer]([facility] Team C) OUTPATIENT [id number] f/u labs KATHY CHILD 09/15 Released w/o Limitations [employer] [employer] ([facility] Team C) [employer] [place] [employer]([facility] Team C) TELE CONSULT [id number] Notes Entered by: KATHY WARREN 16 Sep 2014 0802 ------- ------- ------- ------- -- Elevate jose WBC JUAN ALBERTO ALLISON 09/16 Referred for Appointment [employer] [employer] ([facility] Team C) [employer] [employer]([facility] Team A) TELE CONSULT [id number] Notes Entered by: Pura MARTINEZ 08 Oct 2014 1520 ------- ------- ------- ------- -- Pt would like results of 24hr urine done [id number] . P:[phone]... apm JUAN ALBERTO ALLISON 10/08 Referred for Appointment [employer] [employer] ([facility] Team A) [employer] [place] [employer]([facility] Team C) TELE CONSULT [id number] Notes Entered by: KATHY WARREN 08 Oct 2014 2019 ------- ------- ------- ------- -- JUAN ALBERTO Stephens 10/09 Referred for Appointment [employer] [place] [employer] ([facility] Team C) [employer] [employer]([facility] Team A) OUTPATIENT [id number] right flank pain PEARL MCKENZIE M 10/11 Released w/o Limitations [employer] [employer] ([facility] Team A) [employer] [employer]([facility] [facility] TELE CONSULT [id number] Notes Entered by: CHAVEZ LLOYD 13 Oct 2014 1449 ------- ------- ------- ------- -- Pt would like a referra l to a nephrol ogist(jose Fragoso) since her levels were hig LENCHO OWUSU 10/13 Referred for Appointment [employer] [employer] ([facility] Team A) [employer] [employer]([facility] Team B) TELE CONSULT [id number] Notes Entered by: SINGH GONZALEZ 15 Oct 2014 1312 ------- ------- ------- ------- -- PER JUAN ALBERTO BARAKAT 10/15 Referred for Appointment [employer] [employer] ([facility] Team B) [employer] [employer]([facility] Team A) OUTPATIENT [id number] bluried vision. PEARL MCKENZIE M 10/19 Released w/o Limitations [employer] [employer] ([facility] Team A) [employer] [employer]([facility] Team A) TELE CONSULT [id number] Notes Entered by: CHAVEZ LLOYD 20 Oct 2014 1006 ------- ------- ------- ------- -- Jackie johns/Dr. Bess faxed info over Saturday concern ing Mri under general anes. PEARL MCKENZIE 10/20 [employer] [employer] ([facility] Team A) [employer] [employer]([facility] Team A) TELE CONSULT [id number] Notes Entered by: ROMELIA AGUERO 22 Oct 2014 0935 ------- ------- ------- ------- -- Network results - OPT - 10/2014 PEARL MCKENZIE 10/22 [employer] [employer] ([facility] Team A) [employer] [employer]([facility] Team C) TELE CONSULT [id number] Notes Entered by: PREM BOYER 29 Oct 2014 1005 ------- ------- ------- ------- -- Network Results - hem - 10/2014 . [facility] KATHY CHILD 10/29 [employer] [employer] ([facility] Team C) [employer] [employer]([facility] Team C) TELE CONSULT [id number] Notes Entered by: CHAVEZ LLOYD 01 Nov 2014 0923 ------- ------- ------- ------- -- *SUSANA Gaytan 11/01 Referred for Appointment [employer] [employer] ([facility] Team C) [employer] [employer]([facility] Team C) TELE CONSULT [id number] Notes Entered by: ROMELIA AGUERO 02 Nov 2014 0822 ------- ------- ------- ------- -- Network results - Optomet ry- 10/2014 UMESH GODWIN RN 11/02 [employer] [employer] ([facility] Team C) [employer] [employer]([facility] Team C) TELE CONSULT [id number] Notes Entered by: ROMELIA AGUERO 16 Nov 2014 1020 ------- ------- ------- ------- -- Network results - Radiolo gy -11/2014 JUAN ALBERTO ALLISON 11/16 Referred for Appointment [employer] [employer] ([facility] Team C) [employer] [place] [employer]([facility] Team A) TELE CONSULT [id number] Notes Entered by: ROMELIA AGUERO 18 Nov 2014 1440 ------- ------- ------- ------- -- Wants to discuss labs. [phone] . UMESH Singletary RN 11/18 [employer] [employer] ([facility] Team A) [employer] [place] [employer]([facility] Team C) OUTPATIENT [id number] discuss employm ent restric KATHY Xiao 01/12 Released w/o Limitations [employer] [employer] ([facility] Team C) [employer] [place] [employer]([facility] Team C) TELE CONSULT [id number] Notes Entered by: CHAVEZ LLOYD 25 Jan 2015 1209 ------- ------- ------- ------- -- *med KATHY Conley 01/25 [employer] [employer] ([facility] Team [facility]) [employer] [employer]([facility] Team C) TELE CONSULT [id number] Notes Entered by: JAVIER ALCANTAR 10 Feb 2015 0848 ------- ------- ------- ------- -- Network Results - Endocri nology - 02/2015 KATHY CHILD 02/10 [employer] [employer] ([facility] Team [facility]) [employer] [employer]([facility] Team C) OUTPATIENT [id number] f/u hyper thyriod , summer mcdonnell on leg, doesnt want to see LEI Thomas 03/07 Released w/o Limitations [employer] [employer] ([facility] Team C) [employer] [place] [employer]([facility] Team A) TELE CONSULT [id number] Notes Entered by: ALYSHA HARDEN 29 Mar 2015 1151 ------- ------- ------- ------- -- Network results - radio - 03/2015 NEHEMIAH PEREZ 03/29 [employer] [employer] ([facility] Team A) [employer] [employer]([facility] Team A) TELE CONSULT [id number] Notes Entered by: CHAVEZ LLOYD 11 May 2015 1457 ------- ------- ------- ------- -- *med renewal NEHEMIAH PEREZ 05/11 [employer] [employer] ([facility] Team A) [employer] [place] [employer] [employer]([facility] Team A) OUTPATIENT [id number] lump on neck NATHANIEL SANTIAGO 07/14 Released w/o Limitations [employer] [employer] ([facility] Team A) [employer] [employer]([facility] Team A) TELE CONSULT [id number] Notes Entered by: ALYSHA HARDEN 21 Jul 2015 0834 ------- ------- ------- ------- -- 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 Unable to confirm MONIE YUEN RN 07/20 [employer] [employer] ([facility] Team A) [employer] [place] [employer]([facility] Team A) TELE CONSULT [id number] Notes Entered by: PREM BOYER 25 Jul 2015 1112 ------- ------- ------- ------- -- Radiolo gy order MONIE YUEN RN 07/24 [employer] [employer] ([facility] Team A) [employer] [employer]([facility] Team A) OUTPATIENT [id number] F/U labs done NATHANIEL SANTIAGO 08/14 Released w/o Limitations [employer] [employer] ([facility] Team A) [employer] [place] [employer]([facility] TELE CONSULT [id number] Notes Entered by: MYESHA SANTIAGO 26 Aug 2015 1556 ------- ------- ------- ------- -- Xray result MONIE YUEN RN 08/25 [employer] [employer] ([facility] [employer] [employer]([facility] Team A) TELE CONSULT [id number] Notes Entered by: CHAVEZ LLOYD 09 Sep 2015 1404 ------- ------- ------- ------- -- Pt would like results on bone scan about 1-2 weeks ago. . MONIE Contreras RN 09/[employer] [employer] ([facility] Team A) [employer] [employer]([facility] Team A) TELE CONSULT [id number] Notes Entered by: CHAVEZ LLOYD 21 Sep 2015 1244 ------- ------- ------- ------- -- Pt req results of neck, abdomin , pelvis CT about 2 weeks ago. [phone]. NATHANIEL Rodriguez 09/20 [employer] [employer] ([facility]) [facility] [place] [employer] Team A) OUTPATIENT [id number] bug bites, looking strange NEHEMIAH PEREZ 09/25 Released w/o Limitations [employer] [employer] ([facility] Team A) [employer] [place] [employer]([facility] Team A) TELE CONSULT [id number] Notes Entered by: Sebastián DUVALL 29 Sep 2015 1621 ------- ------- ------- ------- -- Network Results - CT - 09/2015 NATHANIEL SANTIAGO 09/[employer] [employer] ([facility] Team A) [employer] [place] [employer]([facility] Team A) OUTPATIENT [id number] f/u CT, other tests NAHTANIEL SANTIAGO 10/03 Released w/o Limitations [employer] [employer] ([facility] Team A) [employer] [employer]([facility] Team B) TELE CONSULT [id number] Notes Entered by: MYESHA SANTIAGO 26 Oct 2015 0749 ------- ------- ------- ------- -- Please call pt about cardiol ogUMESH Cerna 10/25 [employer] [employer] ([facility] Team B) [employer] [employer]([facility] Team A) TELE CONSULT [id number] Notes Entered by: ALYSHA AHRDEN 26 Oct 2015 1420 ------- ------- ------- ------- -- Network results - Radio - 10/18/15 NICOLAS BETTS 10/25 [employer] [employer] ([facility] Team A) [facility] [employer] [place] [employer]([facility] Team A) TELE CONSULT [id number] Notes Entered by: CHAVEZ LLOYD 22 Dec 2015 1316 ------- ------- ------- ------- -- Network Results - Ortho - 12/2015 LEI THAYER 12/21 [employer] [employer] ([facility] Team A) [employer] [place] [employer]([facility] Team A) TELE CONSULT [id number] Notes Entered by: THIERRY BOND SA 16 Feb 2016 0824 ------- ------- ------- ------- -- 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 JANIYA JENKINS 10/13 /2016 [employer] [employer] ([facility] Team A) [employer] [place] [employer]([facility] Team A) TELE CONSULT [id number] Notes Entered by: CHAVEZ LLOYD 22 Feb 2016 1220 ------- ------- ------- ------- -- *MONIE Patricio RN 02/21 [employer] [employer] ([facility] Team A) [employer] [place] [employer]([facility] Team A) OUTPATIENT [id number] UTI pain level 8 JANIYA JENKINS NM 02/22 Released w/o Limitations [employer] [employer] ([facility] Team A) [employer] [place] [employer]([facility] Team A) TELE CONSULT [id number] Notes Entered by: THIERRY BOND SA 12 Mar 2016 0847 ------- ------- ------- ------- -- Pt has appt today at 1300, please order urine sample for this morning .MONIE Coon RN 03/12 [employer] [employer] ([facility] Team A) [employer] [place] [employer]([facility] Team A) OUTPATIENT [id number] dizzine ss,kidn ey stones JANIYA JENKINS NM 03/12 Released w/o Limitations [employer] [employer] ([facility] Team A) [employer] [place] [employer] Team A) TELE CONSULT [id number] Notes Entered by: THIERRY BOND SA S 04 Apr 2016 1145 ------- ------- ------- ------- -- Pt inquiri ng about letter of referra arroyo for Jaiden that she dropped off.MONIE Coon RN 04/04 [employer] [employer] [employer] ([facility] Team A) [employer] [place], [place] [employer]([facility] Team A) TELE CONSULT [id number] Notes Entered by: ROMELIA AGUERO 15 May 2016 1037 ------- ------- ------- ------- -- Network results - Nephrol ogy- 05/2016 NEHEMIAH PEREZ 05/[employer] [employer] ([facility] Team A) [facility] [employer] [place], [place] [employer]([facility] Team A) TELE CONSULT [id number] Notes Entered by: CHAVEZ LLOYD 17 May 2016 1039 ------- ------- ------- ------- -- Triage - Pts dizzine ss is getting bad enough she is blackin g out. MONIE Contreras RN 05/[employer] [place] [employer] ([facility] Team A) [employer] [place], [place] [employer]([facility] Team A) TELE CONSULT [id number] Notes Entered by: ROMELIA AGUERO 18 May 2016 1112 ------- ------- ------- ------- -- Network results - Nephrol ogy labs - 05/2016 NEHEMIAH PEREZ 05/[employer] [place] [employer] ([facility] Team A) [facility] [employer] [place] [employer]([facility] Team A) TELE CONSULT [id number] Notes Entered by: Asher YUEN RN 22 May 2016 1450 ------- ------- ------- ------- -- JANIYA Fischer 05/22 [employer] [employer] ([facility] Team A) [employer] [employer]([facility] Team A) OUTPATIENT [id number] elio Douglass KENT TAYLOR 05/23 Released w/o Limitations [employer] [employer] ([facility] Team A) [employer] [employer]([facility] Team A) TELE CONSULT [id number] Notes Entered by: CHAVEZ LLOYD 24 May 2016 1251 ------- ------- ------- ------- -- Network Results - Lab - 05/2016 JANIYA JENKINS 05/24 [employer] [employer] ([facility] Team A) [facility] [employer] [place] [employer]([facility] Team A) TELE CONSULT [id number] Notes Entered by: UMESH GODWIN RN 29 May 2016 1248 ------- ------- ------- ------- -- MONIE Granados RN 05/29 [employer] [employer] ([facility] Team A) [employer] [employer]([facility] Team A) TELE CONSULT [id number] Notes Entered by: CHAVEZ LLOYD 30 May 2016 1019 ------- ------- ------- ------- -- Network Results - Endo - 05/2016 JANIYA JENKINS 05/[employer] [employer] ([facility] Team A) [employer] [employer]([facility] Team A) TELE CONSULT [id number] Notes Entered by: THIERRY BOND SA 09 Jul 2016 1158 ------- ------- ------- ------- -- Network Results - Endo - 07/2016 JANIYA JENKINS 07/09 [employer] [employer] ([facility] Team A) [employer] [employer]([facility] Team A) TELE CONSULT [id number] Notes Entered by: ROMELIA AGUERO 10 Jul 2016 1549 ------- ------- ------- ------- -- Network results - Nephrol ogy- 07/2016 JANIYA JENKINS 07/10 [employer] [employer] ([facility] Team A) [employer] [employer]([facility] Team A) TELE CONSULT [id number] SAVITA VALENCIA 07/18 [employer] [employer] ([facility] Team A) [employer] [employer]([facility] Team A) TELE CONSULT [id number] Notes Entered by: ROMELIA AGUERO 07 Aug 2016 1149 ------- ------- ------- ------- -- Network results - Hematol ogy- 08/2016 JANIYA JENKINS 08/07 [employer] [employer] ([facility] Team A) [employer] [employer]([facility] Team A) TELE CONSULT [id number] Notes Entered by: THIERRY BOND SA 14 Aug 2016 0855 ------- ------- ------- ------- -- Network Results - [place] - 08/2016 JANIYA JENKINS 08/14 [employer] [employer] ([facility] Team A) [employer] [employer]([facility] Team A) TELE CONSULT [id number] Notes Entered by: THIERRY BOND SA 20 Aug 2016 0941 ------- ------- ------- ------- -- Network Results - Galo - 08/2016 JANIYA JENKINS 08/20 [employer] [employer] ([facility] Team A) [employer] [employer]([facility] Team A) TELE CONSULT [id number] Notes Entered by: Pura MARTINEZ 11 Sep 2016 1501 ------- ------- ------- ------- -- Please renew OPH elliot arroyo for Optic Nerve Damage to JUAN ALBERTO Shah 09/11 [employer] [employer] ([facility] Team A) nd [employer] [place] [employer]([facility] Team A) TELE CONSULT [id number] Notes Entered by: CHAVEZ LLOYD 24 Sep 2016 1530 ------- ------- ------- ------- -- *med renewal JANIYA JENKINS 09/24 [employer] [employer] ([facility] Team A) [facility] [place] [employer] Team A) TELE CONSULT [id number] Notes Entered by: CHAVEZ LLOYD 26 Nov 2016 1418 ------- ------- ------- ------- -- Network Results - Korey - 11/2016 ALICE JANIYA NM 11/26 [employer] [employer] ([facility] Team A) [employer]([facility] Team B-NonAD) OUTPATIENT [id number] initial appt, meds and referra MATTHEW Okeefe 02/19 Released w/o Limitations [employer]([facility] Team B-NonAD ) [facility] Team C AD/NAD) TELE CONSULT [id number] Notes Entered by: PRIMO FLORES 20 Feb 2017 1104 ------- ------- ------- ------- -- ReferMATTHEW Gandhi 02/20 [facility] [employer]([facility] Team C AD/NAD) [facility] [facility] Team B-NonAD) TELE CONSULT [id number] Notes Entered by: MERCEDES DURBIN 22 Feb 2017 0955 ------- ------- ------- ------- -- Venus herrera results -Nephro logy- BERRY PRESTON 02/22 [facility] Procedures Combined list of: 1) Procedures from Department of Veterans Affairs facilities going back up to thelast 18 months, not all VA non-surgical procedures are included; 2) All procedures from the Department of Defense facilities. Procedure Procedure Type Code Date Perfomer Pollo [facility] e Mammogram 2016 Study: Bilateral digital mammography Comparison: September, Findings: Craniocaudad and mediolateral oblique projections of the right and left breast were obtained. CAD was used. Examination demonstrates scattered fibroglandular densities in both breasts. However, there are no new masses. There are no new microcalcifications of concern. There is no new skin thickening or nipple retraction noted. Benign calcifications are seen scattered in both breasts more so left side than right but stable since the previous study. Impression: ACR BI-RADS category 2: Benign findings There is no evidence of neoplasia. There is no significant interval change from the previous study In a patient of this age group, one year followup is suggested. The patient will receive a lay letter in the mail in accordance with MQSA. Ambulatory Pharmacy DEXA 2015 Ambulatory Pharmacy Colonoscopy 2013 Had at outside provider. 10 year recommended repeat. Ambulatory Pharmacy Hysterectomy Ambulatory Pharmacy Disease management program, follow-up/delphine e ment 2013 DION MCCOLLUM RN Patient Counseling Medical Management Two To Four Patients Patient Counseling Medical Management Two To Four Patients [id number] 2013 DION MCCOLLUM RN Diabetic management program, group se ion 2013 DION MCCOLLUM RN Medical Nutrition Therapy Group (2 or More Individuals) Each 30 Minutes Medical Nutrition Therapy Group (2 or More Individuals) Each 30 Minutes [id number] 2013 MENDEL TALLEY [facility] ECG 12-Lead With Interpretation And Report ECG 12-Lead With Interpretation And Report 15446 2012 NEHEMIAH PEREZ [facility] Fecal Analysis - Occult Blood From Digital Rectal Exam 2009 LILIA KIM [facility] Vaginal SINGH Prep Vaginal SINGH Prep 46950 2009 LILIA KIM [facility] Vaginal Wet [place] Vaginal Wet [place] 03369 2009 LILIA KIM [facility] ECG 12-Lead With Interpretation And Report ECG 12-Lead With Interpretation And Report [id number] 2007 SAM MERCADO [facility] ECG 12-Lead ECG 12-Lead 47803 2006 JARRETT SPARKS [facility] Medication Management By Pharmacist Initial Encounter Medication Management By Pharmacist Initial Encounter [id number] 2006 AR SANTIAGO [facility] Automated Urinalysis Without Microscopic Exam Automated Urinalysis Without Microscopic Exam 84714 2006 NORTH KHALIL [facility] Immunization Administration By Injection, One Vaccine Immunization Administration By Injection, One Vaccine 05412 2006 CYNTHIA FONG [facility] Influenza Split Virus Vaccine 0.5mL Dosage Intramuscular 2006 CYNTHIA FONG [facility] Diagnostic Cystoscopy Diagnostic Cystoscopy 32924 2005 MARK ORDONEZ [facility] Complex Bladder Cystometrogram Complex Bladder Cystometrogram 61047 2005 MARK ORDONEZ Complex Bladder Flow Rate Studies Complex Bladder Flow Rate Studies 22886 2005 MARK ORDONEZ EMG Of Anal/Urethral Sphincter (Other Than Needle) EMG Of Anal/Urethral Sphincter (Other Than Needle) 64025 2005 MARK ORDONEZ [facility] Manometry Intra-Abdominal Voiding Pre ure 2005 MARK ORDONEZ Vaginal Pap Smear Vaginal Pap Smear 99485 2005 BRET GANN [facility] Fecal Analysis - Occult Blood 2005 BRET GANN [facility] INJECTION PROCEDURE DURING CARDIAC CATHETERIZATION; FOR SELECTIVE LEFT VENTRICULAR OR LEFT ATRIAL ANGIOGRAPHY 2006 [facility] ELECTROCARDIOGRA M, ROUTINE ECG WITH AT LEAST 12 LEADS; WITH INTERPRETATION AND REPORT 2006 [facility] MEDICATION THERAPY MANAGEMENT SERVICE(S) PROVIDED BY A PHARMACIST, INDIVIDUAL, [id number] WITH PATIENT, INITIAL 15 MINUTES, WITH ASSESSMENT, AND INTERVENTION IF PROVIDED; INITIAL ENCOUNTER 2006 [facility] UNLISTED SPECIAL SERVICE, PROCEDURE OR REPORT 2006 [facility] URINALYSIS, BY DIP STICK OR TABLET REAGENT FOR BILIRUBIN, GLUCOSE, HEMOGLOBIN, KETONES, LEUKOCYTES, NITRITE, PH, PROTEIN, SPEC GRAVITY, UROBILINOGEN, ANY NUMBER OF CONSTITUENTS; W/O MICRO, AUTOMATED 2006 [facility] INFLUENZA VIRUS VACCINE, TRIVALENT (IIV3), SPLIT VIRUS, 0.5 ML DOSAGE, FOR INTRAMUSCULAR USE 2005 [facility] VOIDING PRESSURE STUDIES, INTRA-ABDOMINAL (IE, RECTAL, GASTRIC, INTRAPERITONEAL) (LIST SEPARATELY IN ADDITION TO CODE FOR PRIMARY PROCEDURE) 2005 [facility] SCREENING PAPANICOLAOU SMEAR; OBTAINING, PREPARING AND CONVEYANCE OF CERVICAL OR VAGINAL SMEAR TO LABORATORY 2005 [facility] COLONOSCOPY, FLEXIBLE; DIAGNOSTIC, INCLUDING COLLECTION OF SPECIMEN(S) BY BRUSHING OR WASHING, WHEN PERFORMED (SEPARATE PROCEDURE) 2004 [facility] EXTERNAL OCULAR PHOTOGRAPHY WITH INTERPRETATION AND REPORT FOR DOCUMENTATION OF MEDICAL PROGRESS (EG, CLOSE-UP PHOTOGRAPHY, SLIT LAMP PHOTOGRAPHY, GONIOPHOTOGRAPHY , STEREO-PHOTOGRAP HY) 2004 [facility] DISEASE MANAGEMENT PROGRAM, FOLLOW-UP/REASSE SSMENT 2013 [facility] MEDICAL NUTRITION THERAPY; GROUP (2 OR MORE INDIVIDUAL(S)), EACH 30 MINUTES 2013 [facility] EDUCATION &TRAINING, PATIENT SELF-MGT QUALIFIED, NONPHYSICIAN HEALTH MATHEMATICAL TECHNICIAN USING STANDARDIZED CURRICULUM, [id number] W THE PATIENT (COULD INCL CAREGIVER/FAMILY ) EA 30 MIN; 2-4 PATIENTS 2013 [facility] ELECTROCARDIOGRA M, ROUTINE ECG WITH AT LEAST 12 LEADS; WITH INTERPRETATION AND REPORT 2012 [facility] TISSUE EXAMINATION BY SINGH SLIDE OF SAMPLES FROM SKIN, HAIR, OR NAILS FOR FUNGI OR ECTOPARASITE OVA OR MITES (EG, SCABIES) 2009 [facility] ELECTROCARDIOGRA M, ROUTINE ECG WITH AT LEAST 12 LEADS; WITH INTERPRETATION AND REPORT 2007 [facility] PHYSICAL THERAPY RE-EVALUATION 2003 [facility] EXERCISE EQUIPMENT 2003 [facility] ANOSCOPY; DIAGNOSTIC, INCLUDING COLLECTION OF SPECIMEN(S) BY BRUSHING OR WASHING, WHEN PERFORMED (SEPARATE PROCEDURE) 2003 [facility] Social History Combined list of available smoking, tobacco, and other social history from [facility] Defense and [facility] Affairs facilities. Social History Type Response Date Comment Sour e Smoking Status Never (less than 100 in lifetime) 07/24/2017 Ambulatory Pharmacy This section is an empty social history section. [facility] Assessment and Plan Combined list of future care activities from Department of Defense and Veterans Affairs facilities (e.g., assessment and plan notes, appointments, orders, and referrals). Additional future care activities may be listed in the Plan of Care section. Result Assessment and Plan Date Source Assessment and Plan Extracted from:Title : multiple general symptoms Author: VALE GAN Date: 10/08/17 1.?General symptom ?Multiple general symptoms of fatigue, weight gain, abdominal pain, recurrent kidney stone, bone pain,?since her parathyroidectomy for an adenoma.? P/E to include neurological, pulmonary, and?cardiovascular exam unremarkable. Denies fevers/chills/night sweats/weight loss/SOB/CP/worsening LE edema. It was quite challenging to have pt focus on one concern and obtain a good history. We will go ahead and obtain full blood work up per pt request. Clinical presentation and complaints non acute. Colonoscopy UTD. Since she had her parathyroid adenoma surgery done outside of [facility] ([facility], [place], [place]?)?we will need to obtain her records and find out they post surgical recommendation f/u. Will need referral to endo if PTH remains high on repeat?test today. ? ? Differential: Adrenal insufficiency (marci supraclavicular fat pad, weight gain, fatigue, abdominal pain, female balding) Hyperparathyroidism (recurrent kidney stones, bone pain) T2DM Hypothyroidism Malignancy ? Ordered: Initial Comp Preventive Med 40 to 64 years New [id number] Office Visit Level 4 New [id number] ? 2.?Screening status ?Geller 1-2, easily burnt, blue eyes, never seen derm for full body skin scan. is requesting referral to derm. referral placed. Ordered: Initial Comp Preventive Med 40 to 64 years New 48882 Office Visit Level 4 New 87929 ? 3.?Acid reflux ?restart on Omeprazole 20mg qd 30 minutes before first meal. Ordered: Initial Comp Preventive Med 40 to 64 years New 86015 Office Visit Level 4 New [id number] ? 4.?Kidney stone (disorder) referral to urology was discussed in her prior visit 07/25/17 but it is unsure if she was able to see them. i do not see referral in the system. will need to further ask question when i call her w/ lab result. Ordered: Initial Comp Preventive Med 40 to 64 years New 86336 Office Visit Level 4 New 14767 ? 5.?Osteoarthritis (disorder) Highly?encouraged use of Tylenol (<4,000mg/day)?instead of ibuprofen given risk for kidney and gastric injury. Last renal function Feb 2017 normal. Jan 2017 hepatic panel normal. Refill for Tylenol and Ibuprofen placed. ? Ordered: Initial Comp Preventive Med 40 to 64 years New 12127 Office Visit Level 4 New 18446 ? Orders: acetaminophen, 1 tabs, Oral, every 4 hr, PRN pain or fever, Do not to exceed 4000 mg/day. Take 1-2 tab for aches/pain before you try Ibuprofen., # 100 tabs, 3 total refill(s), [facility] pharmacy dispense (Rx) [MTF Rx: #100 x 3/3 refills remaining, last filled 10/08/17] atenolol, 1 tabs, Oral, Daily, # 90 tabs, 3 total refill(s), [facility] pharmacy dispense (Rx) [MTF Rx: #90 x 3/3 refills remaining, last filled 10/08/17] ibuprofen, 1 tabs, Oral, every 4 hr, PRN fever, Do not to exceed 3200 mg/day. Try to take Tylenol first before Ibuprofen., # 60 tabs, 0 total refill(s), [facility] pharmacy dispense (Rx) [No refills remaining, last filled 10/08/17] omeprazole, 1 cap, Oral, Daily, Take 30 minutes before meal., # 30 cap, 3 total refill(s), [facility] pharmacy dispense (Rx) [MTF Rx: #30 x 3/3 refills remaining, last filled 10/08/17] Comprehensive Metabolic Panel Hemagram Hemoglobin A1c Medical Referral Request PTH Intact Thyroid Stimulating Hormone Urinalysis with Culture if Indicated Vitamin D 25 Hydroxy Level I personally reviewed the V/S,?previous labs,?current medication(s), and previous?clinician notes?in this visit. ? ? I instructed?her?to return to clinic if symptoms worsen despite today s treatment plan. ? Vale Gan?[facility], [address] ?[place] ? Addendum by VALE GAN T on October 10, 2017 08:32:20 PDT 1) Differential should be: ? Differential: [place]'s syndrome?(marci supraclavicular fat pad, weight gain, fatigue, abdominal pain, female balding) Hyperparathyroidism (recurrent kidney stones, bone pain) T2DM Hypothyroidism Malignancy ? (Adrenal insufficiency is NOT part of the differential) Extracted from:Title: DFM: history of recurrent nephrolithiasis Author: CASEY JONES Date: 07/25/17 1.?Nephrolithiasis,?Nephrolithiasi s EMR and PMHx reviewed ? patient with hx of hyperparathyroidism with parathyroidectomy recent Ca+ normal and PTH slightly elevated ? patient states not feeling well and desires full metabolic work-up and CBC patient is vague about index symptoms and states, I just don't feel right d/w patient no medical indication for full laboratory evaluation, but will order per request ? patient also with hx of chronic recurrent nephrolithiasis secondary to parathyroid disease and patient states that she is passing stones all the time patient desires [facility] U[facility] evaluation to recommend ideal therapy to reduce recurrence of stones - will appreciate [facility] Urology evaluation - UA/culture - f/u with PCM ? Orders: acetaminophen, 1 tabs, Oral, every 4 hr, PRN pain or fever, # 100 tabs, 3 total refill(s), [facility] pharmacy dispense (Rx) [Not filled] atenolol, 1 tabs, Oral, Daily, # 90 tabs, 3 total refill(s), [facility] pharmacy dispense (Rx) [Not filled] ergocalciferol, 1 cap, Oral, every week, # 12 cap, 3 total refill(s), [facility] pharmacy dispense (Rx) [Not filled] ibuprofen, 1 tabs, Oral, TID, PRN pain, # 60 tabs, 3 total refill(s), [facility] pharmacy dispense (Rx) [Not filled] CBC w/ Diff Culture,Urine Magnesium Level Phosphorus Level Thyroid Stimulating Hormone Urinalysis with Microscopic Vitamin D 25 Hydroxy Level 08/09/2023 Ambulatory Pharmacy Functional Status Combined list of recent functional and cognitive assessments recorded at [facility] Functional [place] Measurement (FIM) Scale: 1 = Total Assistance (Subject = 0% +), 2 = Maximal Assistance (Subject = 25% +), 3 = Moderate Assistance (Subject = 50% +), 4 = Minimal Assistance (Subject = 75% +), 5 = Supervision, 6 = Modified [place] (Device), 7 = Complete [place] (Timely, Safely). Assessment Date/Time Source Assessment Type Assessment Skill Assessment Score Assessment Details No data available for this section
== END 2023-07-31 11:01 | disposition home or self-care (01) ==
LOC: NFLDREF 08-02 08:52
PROVIDERS: PCP Family Medicine; Referring Provider Family Medicine; Visit Provider Family Medicine
DX: D47.3 Essential (hemorrhagic) thrombocythemia (principal); D50.9 Iron deficiency anemia, unspecified; I10 Essential (primary) hypertension; R53.83 Other fatigue; R73.03 Prediabetes; D50.8 Other iron deficiency anemias; M81.0 Age-related osteoporosis without current pathological fracture
CPT/HCPCS: 80053; 82306; 82607; 82728

== ENCOUNTER 2024-02-07 13:47 | Outpatient (CLI) | payer MEDICARE, OTHER, SELFPAY ==
--- OUTSIDE RECORDS SUMMARY | 2024-02-07 13:49 | XMS_ITS | Referral Summary ---
Author Organization [facility] Address [address] [place] [address] Care Team Providers Care Sourcer Name Role Phone Elsewhere, Pcp Primary Care Provider Unavailabl e Source Comments Patient records contain information from all sites at [facility]. For routine questions regarding patient records, call [phone] during business hours, M-F 8:00 AM - 5:00 PM Central Time. Record requests for emergency care only can be directed to [phone] at any time.[facility] Allergies No known active allergies Medications Medication Sig Dispensed Refills Start Date End Date Status ibuprofen (MOTRIN) 400 mg tablet Take 400 mg by mouth as needed. 10/08/2017 Active ascorbic acid, vitamin C, (VITAMIN C) 500 mg tablet Take 500 mg by mouth daily. 09/04/2022 Active TURMERIC ORAL Take 1-2 capsules by mouth daily. Active MAGNESIUM ORAL Take 1 capsule by mouth daily. Active ADULT LOW DOSE ASPIRIN ORAL Take 1 tablet by mouth daily. Active ferrous sulfate (IRON ORAL) Take 2 capsules by mouth daily. Active atenoloL (TENORMIN) 25 mg tablet Take 1 tablet by mouth daily. 03/22/2023 Active fluconazole (DIFLUCAN) 150 mg tablet Take 1 tablet by mouth daily. 03/27/2023 Active Vitron-C 65 mg iron- [address] tablet Take 1 tablet by mouth 2 (two) times a day. 03/22/2023 Active omeprazole (PriLOSEC OTC) 20 mg [...] Sex Assigned at Female 04/01/2023 1:14 PM FISHING GAME WARDEN Gender Identity Female 04/01/2023 1:14 PM FISHING GAME WARDEN Sexual Orientation Straight 04/01/2023 1: 14 PM FISHING GAME WARDEN Last Filed Vital Signs Vital Sign Reading Time Taken Comments Blood Pressure 132/70 04/11/2023 2:32 PM FISHING GAME WARDEN Pulse 57 04/11/2023 2:32 PM FISHING GAME WARDEN Temperature 36.9 ??C (98.4 ??F) 04/11/2023 2:01 PM CS T Respiratory Rate 13 04/11/2023 2:32 PM FISHING GAME WARDEN Oxygen Saturation 94% 04/11/2023 2:32 PM FISHING GAME WARDEN Inhaled Oxygen Concentration - - Weight 110 kg (243 lb 9.7 oz) 04/11/2023 12:07 P M FISHING GAME WARDEN Height 166.5 cm (5' 5.55) 04/11/2023 12:[address] Body Mass Index 39.86 04/11/2023 12:07 PM FISHING GAME WARDEN Plan of Treatment Not on file Care Teams Sourcer Relationship Specialty Start Date End Date Elsewhere, Pcp PCP - General Internal Medicine 01/22/23
--- OUTSIDE RECORDS SUMMARY | 2024-02-07 13:49 | XMS_ITS | Clinical Summary ---
Author Organization [facility] Address [address] [place] [address] Care Team Providers Care Can Cleaner Name Role Phone Elsewhere, Pcp Primary Care Provider Unavailabl e Source Comments Patient records contain information from all sites at [facility]. For routine questions regarding patient records, call [phone] during business hours, M-F 8:00 AM - 5:00 PM Central Time. Record requests for emergency care only can be directed to [phone] at any time.[facility] Allergies No known active allergies Medications [...] Sex Assigned at Female 04/01/2023 1:14 PM STAVE CUTTING SUPERVISOR Gender Identity Female 04/01/2023 1:14 PM STAVE CUTTING SUPERVISOR Sexual Orientation Straight 04/01/2023 1: 14 PM STAVE CUTTING SUPERVISOR Last Filed Vital Signs Vital Sign Reading Time Taken Comments Blood Pressure 132/70 04/11/2023 2:32 PM STAVE CUTTING SUPERVISOR Pulse 57 04/11/2023 2:32 PM STAVE CUTTING SUPERVISOR Temperature 36.9 ??C (98.4 ??F) 04/11/2023 2:01 PM CS T Respiratory Rate 13 04/11/2023 2:32 PM STAVE CUTTING SUPERVISOR Oxygen Saturation 94% 04/11/2023 2:32 PM STAVE CUTTING SUPERVISOR Inhaled Oxygen Concentration - - Weight 110 kg (243 lb 9.7 oz) 04/11/2023 12:07 P M STAVE CUTTING SUPERVISOR Height 166.5 cm (5' 5.55) 04/11/2023 12:[address] Body Mass Index 39.86 04/11/2023 12:07 PM STAVE CUTTING SUPERVISOR Plan of Treatment Health Maintenance Due Date [...] ars) (1 of 1 - PCV) 2021 Depression Screening (Annual PHQ-2) 05/06/2023 Fall Risk Screen (Annual) 05/06/2023 Office Visit for Blood Press ure Check / Re-check 07/04/2023 04/04/2023 COVID-19 Vaccine (1 - 2023-2 5 season) 2024 Influenza Vaccine (#1) 2024 6, 04/05/2015, 03/25/2014, Additional history exists Care Teams Can Cleaner Relationship Specialty Start Date End Date Elsewhere, Pcp PCP - General Internal Medicine 01/22/23
--- OUTSIDE RECORDS SUMMARY | 2024-02-07 13:49 | XMS_ITS | Data Portability ---
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 [email or web address] Not available 06/10/2023 08:40:57 09/26/2023 09/26/2023 67 year old female with a history of gross hematuria, lower urinary tract symptoms, pelvic floor dysfunction, pelvic organ prolapse, and recurrent urinary tract infections. Not available 09/26/2023 09:36:22 Plan of Treatment Reminders Order Date Submit Date Provider Last Modified By Organization Details Last Modified Time Details Appointments None recorded. Lab urinalysis, dipstick [address] [facility], [address], [place], [address], 18:24:53 urinalysis, microscopic [address] [facility], [address], [address], [place], [address], 4 05:01:02 cytology, urine [address] [facility], [address], [address], [place], [address], 4 10:07:41 urinalysis, dipstick [address] [facility], [address], [address], [place], [address], 4 11:26:28 urinalysis, microscopic [address] [facility] [place] [facility], [address], [address], [place], [address], 4 11:16:13 culture, urine [address] [facility], [address], [address], [place], [address], 4 10:12:48 Referral urologist referral - Recurrent prolapse status post repair in 2003. 2023 024 [place] [address] [place], [address] [facility], [address], [place], [address], 4 08:58:39 Procedures None recorded. Surgeries None recorded. Imaging CT, urogram 2023 024 [facility], [address], [place], [address], 4 07:49:34 US, kidney - Please call patient to schedule 2023 024 [facility], [address], [place], [address], 4 23:14:38 Medication Orders Valium 5 mg tablet 2023 024 ameath [id number], [address], [place], [address], 4 10:45:56 conjugated estrogens 0.625 mg/gram vaginal cream 2023 024 [email or web address] [email or web address] [id number], [address], [place], [address], 4 10:35:05 Patient TargetsNo targets recorded. Patient Instructions Encounter Date Encounter Id Patient Instructions Last Modified By Organization Details Last Modified Time 06/04/2023 [id number] Gross hematuria: We discussed the current guidelines as outlined by the [employer] regarding the evaluation of patients [...] daily cranberry supplement. Not available 06/04/2023 14:34:18 08/05/2023 [id number] Bothersome vagin al bulge, grade II rectocele [...] etc. We can also do this in [place] for her, she lives in [place]. Not available 08/05/2023 11:26:51 09/26/2023 [id number] I see no obvious causes for hematuria or changes since May. A urine culture has been sent. We will also check a renal ultrasound to see if perhaps her stone is passing. Not available 09/26/2023 11:16:03 Reason for Referral Urologist Referral for Prola pse of female genital organs Recurrent prolapse status post repair in 2003. Referring Physician: Flash Grijalva, Urology, Encounter Date: 06/04/2023 Results Created Date Observation Date Name Description Value Unit Range Abnormal Flag Note LastModifiedBy Organization Detail LastModifiedTime 06/04/1906/04/2023 UA WITHO UT MICRO - CS URISC AN blood - uriscan NEGATI VE negati ve Not Available [facility] [address] [facility] [address], [place], [address], 06/04/2023 18:24:53 06/04/1906/04/2023 UA WITHO UT MICRO - CS URISC AN bilirubin - uriscan NEGATI VE mg/dL negati ve Not Available [facility] [address] [facility] [address], [place], [address], 06/04/2023 18:24:53 06/04/19 24 06/04/2023 UA WITHO UT MICRO - CS URISC AN urobilinogen - uriscan NORMAL mg/dL normal Not Available [facility] [address] [facility] [address], [place], [address], 06/04/2023 18:24:53 06/04/19 24 06/04/2023 UA WITHO UT MICRO - CS URISC AN ketones - uriscan NEGATI VE mg/dL negati ve Not Available [facility] [address] [place] [address] [address], [place], [address], 06/04/2023 18:24:53 06/04/19 24 06/04/2023 UA WITHO UT MICRO - CS URISC AN protein - uriscan NEGATI VE mg/dL negati ve Not Available [facility] [address] [place] [address] [address], [place], [address], 06/04/2023 18:24:53 06/04/19 24 06/04/2023 UA WITHO UT MICRO - CS URISC AN nitrites - uriscan NEGATI VE negati ve Not Available [facility] [address] [place] [address] [address], [place], [address], 06/04/2023 18:24:53 06/04/19 24 06/04/2023 UA WITHO UT MICRO - CS URISC AN glucose - uriscan NEGATI VE mg/dL negati ve Not Available [facility] [address] [place] [address] [address], [place], [address], 06/04/2023 18:24:53 06/04/19 24 06/04/2023 UA WITHO UT MICRO - CS URISC AN pH - uriscan 5.00 5.00-9 .00 Not Available [facility] [address] [place] [address] [address], [place], [address], 06/04/2023 18:24:53 06/04/19 24 06/04/2023 UA WITHO UT MICRO - CS URISC AN sp. gravity - uriscan 1.02 1.01-1 .03 Not Available [facility] [address] [facility] [address], [place], [address], 06/04/2023 18:24:53 06/04/19 24 06/04/2023 UA WITHO UT MICRO - CS URISC AN leukocytes - uriscan NEGATI VE negati ve Not Available [facility] [address] [place] [address] [address], [place], [address], 06/04/2023 18:24:53 06/04/19 24 06/04/2023 UA WITHO UT MICRO - CS URISC AN color - uriscan YELLOW lt. yellow ;yello w Not Available [facility] [address] [place] [address] [address], [place], [address], 06/04/2023 18:24:53 06/04/19 24 06/04/2023 UA WITHO UT MICRO - CS URISC AN clarity - uriscan CLEAR clear Not Available [facility] [address] [place] [address] [address], [place], [address], 06/04/2023 18:24:53 06/04/19 24 06/04/2023 UA WITHO UT MICRO - CS URISC AN total urine volume (mL) 15 /mL ----- ----- ----- ----- ----- ----- ----- ----- ----- ----- ----- ----- ----- ----- ---- *Plea note the follo wing minim um quant ities for addit ional urine testi ng: - Atypi cals: 3 mL - Cytol ogy: 20 mL - GC/CH : 2 mL - FISH: 30 mL - Atypi cals w/ GC/CH : 5 mL - Cytol ogy PLUS FISH: 50 mL - Urine Cultu re: 3 mL ----- ----- ----- ----- ----- ----- ----- ----- ----- ----- ----- ----- ----- ----- ---- This lab resul t is being provi ded to you and your provi dolly at the same time in compl iance with the Centu ry Cures Act. Your provi dolly may not have had time to revie w and make recom menda tions based on the resul t. Pleas e allow up to one week for provi dolly revie w. Not Available [facility] [address] [facility] [address], [place], [address], 06/04/2023 18:24:53 06/04/19 24 06/04/2023 URINE CYTOL OGY apresult AP RESULT S FINAL CYTOP ATHOL OGY REPOR T Clini krystle Histo ry Gross Hemat uria Urine Sampl e Type mena d Diagn osis URINE FOR CYTOL OGY: 1. Negat brittani for high- grade uroth elial carci noma 2. Numer ous squam ous cells Akanksha d by Ventura Lay MD Board Certi fied in Anato marj, Clini krystle and Cytop athol ogy, Speci alizi ng in Urolo gic Patho logy MICRO SCOPI C DESCR IPTIO N The slide was prepa red at [facility], [address] [place] [address], [place] [address] . Micro scopi c exami natio n and inter preta tion of this case was perfo rmed at [facility], [address] [place] [address], [place] [address], [place] [address] . Gross Descr iptio n The speci men consi sts of 70 cc of yello w, sligh tly cloud y urine . A ThinP rep slide is prepa red. Not Available [facility] [address] [facility] [address], [place], [address], 06/06/2023 10:07:40 09/26/19 24 09/26/2023 UA WITHO UT MICRO - CS URISC AN blood - uriscan NEGATI VE negati ve Not Available [facility] [address] [facility] [address], [place], [address], 09/26/2023 11:26:28 09/26/19 24 09/26/2023 UA WITHO UT MICRO - CS URISC AN bilirubin - uriscan NEGATI VE mg/dL negati ve Not Available [facility] [address] [place] [address] [address], [place], [address], 09/26/2023 11:26:28 09/26/19 24 09/26/2023 UA WITHO UT MICRO - CS URISC AN urobilinogen - uriscan NORMAL mg/dL normal Not Available [facility] [address] [facility] [address], [place], [address], 09/26/2023 11:26:28 09/26/19 24 09/26/2023 UA WITHO UT MICRO - CS URISC AN ketones - uriscan NEGATI VE mg/dL negati ve Not Available [facility] [address] [place] [address] [address], [place], [address], 09/26/2023 11:26:28 09/26/19 24 09/26/2023 UA WITHO UT MICRO - CS URISC AN protein - uriscan NEGATI VE mg/dL negati ve Not Available [facility] [address] [place] [address] [address], [place], [address], 09/26/2023 11:26:28 09/26/19 24 09/26/2023 UA WITHO UT MICRO - CS URISC AN nitrites - uriscan NEGATI VE negati ve Not Available [facility] [address] [facility] [address], [place], [address], 09/26/2023 11:26:28 09/26/19 24 09/26/2023 UA WITHO UT MICRO - CS URISC AN glucose - uriscan NEGATI VE mg/dL negati ve Not Available [facility] [address] [place] [address] [address], [place], [address], 09/26/2023 11:26:28 09/26/19 24 09/26/2023 UA WITHO UT MICRO - CS URISC AN pH - uriscan 5.50 5.00-9 .00 Not Available [facility] [address] [place] [address] [address], [place], [address], 09/26/2023 11:26:28 09/26/19 24 09/26/2023 UA WITHO UT MICRO - CS URISC AN sp. gravity - uriscan 1.02 1.01-1 .03 Not Available [facility] [address] [place] [address] [address], [place], [address], 09/26/2023 11:26:28 09/26/19 24 09/26/2023 UA WITHO UT MICRO - CS URISC AN leukocytes - uriscan NEGATI VE negati ve Not Available [facility] [address] [place] [address] [address], [place], [address], 09/26/2023 11:26:28 09/26/19 24 09/26/2023 UA WITHO UT MICRO - CS URISC AN color - uriscan YELLOW lt. yellow ;yello w Not Available [facility] [address] [place] [address] [address], [place], [address], 09/26/2023 11:26:28 09/26/19 24 09/26/2023 UA WITHO UT MICRO - CS URISC AN clarity - uriscan CLEAR clear Not Available [facility] [address] [facility] [address], [place], [address], 09/26/2023 11:26:28 09/26/19 24 09/26/2023 UA WITHO UT MICRO - CS URISC AN total urine volume (mL) 60 /mL ----- ----- ----- ----- ----- ----- ----- ----- ----- ----- ----- ----- ----- ----- ---- *Tamika chahal note the follo wing minim um quant ities for addit ional urine testi ng: - Atypi cals: 3 mL - Cytol ogy: 20 mL - GC/CH : 2 mL - FISH: 30 mL - Atypi cals w/ GC/CH : 5 mL - Cytol ogy PLUS FISH: 50 mL - Urine Cultu re: 3 mL ----- ----- ----- ----- ----- ----- ----- ----- ----- ----- ----- ----- ----- ----- ---- This lab resul t is being provi ded to you and your provi dolly at the same time in compl iance with the Centu ry Cures Act. Your provi dolly may not have had time to revie w and make recom menda tions based on the resul t. Micah damon allow up to one week for provi dolly revie w. Not Available [facility] [address], [place], [address], 09/26/2023 11:26:28 09/26/19 24 09/26/2023 URINE CULTU RE final report MICROB IOLOGY RESULT S abnormal SOURC E Void KNOWN ALLER GIES see chart TREAT MENT see chart MEDIA PLATE D AT: Media plate d on 2023 @ 12:06 PM COLON Y COUNT >100, 000 cfu/m l RESUL T Esche meena a coli (Isol ate 1) Sensi tivit y Nicky sis [place] te 1 ----- ----- ----- ----- ----- ----- ----- - AMOX/ K CLAV <=8/4 *S AMP/S ULBAC JUNE <=8/4 *S AMPIC ILLIN <=8*S AZTRE ONAM <=4*S CEFAZ CAMERON <=2*S CEFTA ZIDIM E <=1*S CEFTR IAXON E <=1*S CEFUR OXIME <=4*S CIPRO FLOXA GAGANDEEP <=1*S LEVOF LOXAC IN <=2*S NITRO FURAN TOIN <=32* S PIP/T AZO <=16* S TETRA CYCLI NE <=4*S TRIME TH/VITALE LFA <=2/3 8*S TRIME THOPR IM <=8*S Orga nisms that are susce ptibl e to tetra cycli ne are gener ally also susce ptibl e to doxyc yclin e and minoc yclin e. Any subst ituti on of drugs which have not been teste d for sensi tivit y shoul d be consi dered based on appro lorie usage of the drugs . Infor matio n on doxyc yclin e and minoc yclin e can be found in the Physi hbeert' s Desk Refer ence or from the [facility] actur er. S= Susce ptibl e;I= Inter media te;R= Resis tant; ESBL= Resis tance due to confi rmed ESBL This lab resul t is being provi ded to you and your provi dolly at the same time in compl iance with the Centu ry Cures Act. Your provi dolly may not have had time to revie w and make recom menda tions based on the resul t. Micah damon allow up to one week for provi dolly revie w. Not Available [facility] [address] [facility] [address], [place], [address], 09/28/2023 10:12:48 06/04/19 24 10/05/2022 CT, abdom en + pelvi s, w/ contr ast No observ ation record ed. [facility] [address] [place], [address], 06/04/2023 13:38:37 06/13/19 24 06/12/2023 CT, urogr am No observ ation record ed. [facility] [address] [place], [address], 06/13/2023 09:31:15 10/07/19 24 10/07/2023 , David pizarro ation record ed. [facility] [address], [place], [address], 10/08/2023 08:42:10 Result Notes None recorded. 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 Procedures Surgical History Date Name Laterality Status Provider Name and Address Organization Details Recorded Time 09/26/19 24 Cystoscopy- female completed Flash Grijalva MD [address] [place] [address],[address], [address], [facility] 09/26/2023 09:36:04 09/26/19 24 Past Data Reviewed completed Flash Grijalva MD [address] [place] [address],[address], [address], [facility] 09/26/2023 09:36:14 08/05/19 24 Pelvic Exam completed Don Baca MD [address] [place] [address],[address], [address], [facility] 08/05/2023 08:55:02 08/05/19 24 Past Data Reviewed completed Don Baca MD [address] [place] [address],[address], [address], [facility] 08/05/2023 10:48:58 06/04/19 24 Cystoscopy- female completed Flash Grijalva MD [address] [facility] [facility] [address], [place], [address], [facility] 06/04/2023 14:15:25 07/05/19 23 Diagnostic [...] Imaging Date Name Status LastModified by Organiz joel Details LastModified Time 10/05/2022 CT, abdomen + pelvis, w/ contrast completed [address] [facility] [address] [place], [address], 06/04/2023 13:38:37 06/12/2023 CT, urogram completed [facility] [address] [place], [address], 06/13/2023 09:31:15 10/07/2023 US, kidney completed [facility] [address] [place], [address], 10/08/2023 08:42:10 Procedure Notes None recorded. Medical Equipment None Reported. Allergies No known drug allergies Medications Name Sig Start Date Stop Date Status Note LastModified by Organization Details LastModified Time triazolam 0.25 mg tablet BRING TAB TO OFFICE AND TAKE 20 MINS BEFORE DENTAL PROCEDUR E active Not Available Not Available No t Available fluconazo le 150 mg tablet TAKE ONE TABLET BY MOUTH EVERY DAY 06/03 completed HN: Patient reports no longer taking Not Available Not Available Not Available atenolol 25 mg tablet TAKE ONE TABLET BY MOUTH EVERY DAY 06/03 completed HN: Patient reports no longer taking Not Available Not Available Not Available sulfameth oxazole 800 mg-trimet hoprim 160 mg tablet TAKE 1 TABLET BY MOUTH EVERY 12 HOURS FOR 5 DAYS active Not Available Not Available No t Available aspirin 81 mg tablet,de layed release Take 1 tablet every day by oral route. active Not Available Not Available No t Available lorazepam 0.5 mg tablet TAKE 1-2 TABLETS BY MOUTH [address] SCAN NEEDED FOR ANXIETY DO NOT DRIVE AFTER TAKING THIS MED. 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 TAKE [address] 09/25 completed Not Available Not Available Not Available Premarin 0.625 mg/gram vaginal cream Insert [...] Not Available Not Available aspirin 81mg 1/day 09/25 completed Not Available Not Available Not Available GaviLyte- G 236 gram-22.7 4 gram-6.74 [...] Address Organization Details Last Updated DateTime 06/04/2023 071717.7219 86698 g 38.7 kg/m2 167.64 cm Not Available Health Note 06/04/2023 09:00:28 Date Recorded Body height Body mass index (BMI) Body weight Provider Name and Address Organization Details Last Updated DateTime 08/05/2023 167.64 cm 38.7 kg/m2 718066.17 g Yaa Hugo [facility] 08/05/2023 10:34:58 Date Recorded Body height Provider Name an d Address Organization Details Last Updated DateTime 09/26/2023 167.64 cm Stefano Bess [facility] 10:45:41 Social History Question Answer Notes LastModified by [...] Unknown Information not available 08/05/2023 Preferred Language Palauan Information not available 08/05/2023 Number Of Pregnancies 3 [email or web address] Information not available 06/03/2023 Number Of Vaginal Deliveries 3 [email or web address] Information not available 06/03/2023 Number Of Caesarean Sections 0 [email or web address] Information not available 06/03/2023 Could You Be ? No [email or web address] Information not available 06/03/2023 What Was The Date Of Your Most Recent Tobacco Screening? 09/26/2023 Information not available 09/26/2023 Have You Ever Been Counseled For Unhealthy Alcohol Use? No Information not available 06/04/2023 What Is Your Relationship Status? [email or web address] Information not available 08/05/2023 Are You Sexually Active? No [email or web address] Information not available 08/05/2023 Do You Or Have You Ever Used Smokeless Tobacco? Never Used Smokeless Tobacco [email or web address] Information not available 08/05/2023 Do You Use Any Illicit Or Recreational Drugs? No [id number] Information not available 08/05/2023 Has Tobacco Cessation Counseling Been Provided? No Information not available 06/04/2023 Do You Or Have You Ever Used Any Other Forms Of Tobacco Or Nicotine? No Information not available 06/04/2023 How Many Days In The Past Year Have You Consumed 4 Or More Drinks? 0 [place] [id number] Information no t available 08/05/2023 Sex: Unknown Functional Status None recorded. Mental Status None recorded. Family History Relationship Description Onset Age of this Age Resolved Age Notes LastModified by Organization Details LastModified Time Father Family history of malignant neoplasm [place] [id number] Not available 2023 15:32:10 Paternal Grandfather Family history of malignant neoplasm [id number] Not available 2023 15:32:10 Paternal Grandmother Family history of malignant neoplasm [place] [id number] Not available 2023 15:32:10 Notes:Father has esophageal cancer Paternal Grandmother has esophageal cancer Medical History Condition Response Diabetes N Sexually Transmitted Infection N Other N Bleeding Disorder N High Blood Pressure Y Kidney Stones Y Cancer N Lung Disease N Depression N High Cholesterol Y GERD/Acid Reflux Y Heart Disease N Gynecological History Statement/Question [...] Encounter Closed Date Diagnosis/Indication Diagnosis SNOMED-CT Code Diagnosis ICD10 Code [id number] Flash Grijalva MD [facility] [address] [place] [address] 06/04/2023 09:00:24 06/04/2023 15:00:36 Guero hematuria 754363985 R31.0 Pelvic emma or dysfunction 336005605 M62.9 Overactive urinary bladder 975854791 N32.81 Recurrent urinary tract infection N39.0 Prolapse o f female genital organs 47619109 N81.9 [id number] [facility] [address] [facility],[address] [place] [address] 08/05/2023 10:27:12 08/05/2023 11:28:05 Recurrent urinary tract infection 149859598 N39.0 Herniation of rectum into vagina 146508569 N81.6 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 69287392 N99.3 [id number] Flash Grijalva MD [facility] [address] [facility] [address] [place] [address] 09/26/2023 10:42:16 09/26/2023 11:37:26 Guero hematuria 616794040 R31.0 Pelvic emma or dysfunction 128101744 M62.9 Overactive urinary bladder 173570861 N32.81 Recurrent urinary tract infection 230215639 N39.0 Prolapse o f female genital organs 88021549 N81.9 Kidney stone 74654232 N2 0.0 Health Concerns Section Related Observation LastModified by Organization Detai ls LastModified Time None Recorded Concern Status LastModified by Organization Details LastModified Time None Recorded Advance Directives Directive None Recorded Payers Encounter Date Sequence Insurance Name Policy Number Policy Proctor Covered Member ID Proctor Member ID Guarantor Name 06/04/2023 1 [place]: [employer] Gunjan Gann Gnemi [id number] Gunjan Gann Gnemi 06/04/2023 2 WPS - FOR LIFE (MEDICARE SUPPLEMENT) Gunjan Gann Gnemi [id number] Gunjan Gann Gnemi 08/05/2023 2 WPS - FOR LIFE (MEDICARE SUPPLEMENT) Gunjan Gann Gnemi [id number] Gunjan Gann Gnemi 08/05/2023 1 MEDICA - DUAL ELIGIBLE (MEDICARE REPLACEMENT/A DVANTAGE - HMO) Gunjan Gann Gnemi [id number] Gunjan Gann Gnemi 09/26/2023 2 WPS - FOR LIFE (MEDICARE SUPPLEMENT) Gunjan Gann Gnemi [id number] Gunjan Gann Gnemi 09/26/2023 1 MEDICA - DUAL ELIGIBLE (MEDICARE REPLACEMENT/A DVANTAGE - HMO) Gunjan Lombardosheyla [id number] Gunjan Gann Alyson Notes Date Note Type Note Provider Name [...] physical therapy without improvement. Flash Grijalva MD [address] [place] [address],[address], [place], [address], [facility] 06/04/2023 14:35:55 4 text/html HPI Notes: [...] and repair of rectocele in 2003 at [place]. Prior to this was splinting/reducing to even [...] a clear trigger. Don Baca MD [address] [facility],[address], [place], [address], [facility] 08/05/2023 11:27:44 4 text/html HPI Notes: This is a 67 year old female with a history of gross hematuria, lower urinary tract symptoms, pelvic floor dysfunction, and recurrent urinary tract infections here for the evaluation of recurrent gross hematuria. She had a bought of abdominal and flank pain in March. She thought she was passing a kidney stone but subsequently passed a blood clot instead. Her symptoms have improved since then, but she is still having intermittent right flank pain. She underwent an office cystoscopy 06/04/2023 which was negative for tumor. A CT urogram was performed on 06/12/2023 which showed a 3 mm right lower pole calculus but was otherwise unremarkable. She developed new onset gross hematuria again in September. She does have baseline symptoms of overactivity. She is bothered by urinary urgency, frequency, and urge urinary incontinence. She wears 2 pads per day. She is not on medical therapy. She has tried pelvic floor physical therapy without improvement. She has declined further therapy at this point. She has been struggling with recurrent urinary tract infections for more than 10 years. She is utilizing vaginal estrogen. She does take a daily cranberry supplement. She has recurrent nephrolithiasis. She was treated for hyperparathyroidism with improvement. She still frequently passes small stones. She was noted to have a 3 mm right lower pole calculus on CT urogram 06/12/2023. She denies flank pain. She has a history of pelvic organ prolapse and stress urinary incontinence. She is status post what sounds like sling placement, prolpase repair, and repair of rectocele in 2003. These have all recurred. She has tried pelvic floor physical therapy without improvement. She is currently pursuing treatment for this with Dr. Baca. Overactive Bladder Pathway Questionnaire: Uses the restroom: 14 times per day Uses the restroom (daytime): every 1 hours Uses the restroom (nighttime): every 2 hours Accidents: 1 per day Pads: using 3 per day Symptoms since last appointment: 75% Worse Happy with current treatment plan: yes Urogenital Distress Inventory (AUGUSTUS-6): [3] Frequent urination: Greatly [3] Urine leakage related to the feeling of urgency: Greatly [2] Urine leakage related to physical activity, coughing or sneezing: Moderately [2] Small amounts of urine leakage (drops): Moderately [3] Difficulty emptying your bladder: Greatly [3] Pain or discomfort in the lower abdominal or genital area: Greatly Incontinence Impact Questionnaire (IIQ-7): [3] Ability to do card checker (cooking, housecleaning): Greatly [3] Physical recreation such as walking, or other exercise: Greatly [3] Ability to attend entertainment activities (movie, concerts): Greatly [3] Ability to travel by car more than 30 minutes from home: Greatly [3] Participation in social activities outside your home: Greatly [2] Emotional health (nervousness, depression, etc): Moderately [3] [place] frustrated: Greatly Flash Grijalva MD [id number] [facility] [address], [place], [id number], [facility] 09/26/2023 11:16:38 OBGyn Episode No OBEpisode recorded.
--- OUTSIDE RECORDS SUMMARY | 2024-02-07 13:50 | XMS_ITS | Continuity of Care Document ---
Author Name [facility] Organization [facility] Care Team Providers Care Formula Maker Name Role Phone [facility] Unavailable Unavailable Problems [...] corynebacteria not JK and one colony of PAN TANK WORKER which likely represent colonization with normal skin [...] [facility] no overt failure or acute processEKG [...] corynebacteria not JK and one colony of PAN TANK WORKER which likely represent colonization with normal skin [...] Last Dispense Date Ordering Provider Order Date Order Qty Source amoxicillin 500 mg Cap See Rx Instruct ions, Oral, TID, # 30 EA, 0 total refill(s ), Hard Stop Oral (given by mouth) Complet ed 07/19/2017 30.0 Ambulat ory Pharmac y atenolol 50 mg oral tablet 1 tabs, Oral, Daily, courtesy renewl schedule for annual PE when return to [place], # 90 tabs, 0 total refill(s ), [facility], [facility] tabs Oral Daily,In str:becki oscargilles renewl schedule for annual PE when return to [place], Pharmacy : [id number] Oral (given by mouth) Ordered 90.0 1485C-A HC McChord atenolol 50 mg oral tablet 1 tabs, Oral, Daily, # 90 tabs, 3 total refill(s ), [facility] pharmacy dispense (Rx) Oral (given by mouth) Discont inued 10/28/2018 90.0 1485C-A HC McChord cetirizine 10 mg oral tablet TAKE DIRECTED , [facility] Ordered 0125C-A MC Shahriar diazePAM 5 mg Tab See Rx Instruct ions, # 8 EA, 1 total refill(s ), Hard Stop Complet ed 12/25/2017 8.0 Ambulat ory Pharmac y ergocalcife rol 50,000 intl units (1.25 mg) oral capsule ergocalc iferol 50,000 intl units (1.25 mg) oral capsule Start Date: 02/13/17 Stop Date: 07/24/17 Status: Disconti nued Discont inued 07/24/2017 No Facilit y Access ergocalcife rol 50,000 intl units (1.25 mg) oral capsule 1 cap, Oral, every week, # 12 cap, 3 total refill(s ), [facility] pharmacy dispense (Rx) Oral (given by mouth) Ordered 12.0 0125C-A MC Shahriar ibuprofen 400 mg oral tablet 1 tabs, Oral, every 4 hr, PRN fever, Do not to exceed 3200 mg/day. Try to take Tylenol first before Ibuprofe n., # 60 tabs, 0 total refill(s ), [facility] pharmacy dispense (Rx) Oral (given by mouth) Ordered 60.0 1485C-A HC McChord ibuprofen 800 mg oral tablet 1 tabs, Oral, TID, PRN pain, # 60 tabs, 3 total refill(s ), [facility] pharmacy dispense (Rx) Oral (given by mouth) Discont inued 10/08/2017 60.0 0125C-A AFIA Bess omeprazole 10 mg oral delayed release capsule omeprazo le 10 mg oral delayed release capsule Start Date: 02/13/17 Status: Ordered Ordered No Facilit y Access omeprazole 20 mg oral delayed release capsule 1 cap, Oral, Daily, Take 30 minutes before meal., # 30 cap, 3 total refill(s ), [facility] pharmacy dispense (Rx) Oral (given by mouth) Ordered 30.0 1485C-A HC McChord Tylenol 325 mg oral tablet 1 tabs, Oral, every 4 hr, PRN pain or fever, Do not to exceed 4000 mg/day. Take 1-2 tab for aches/pa in before you try Ibuprofe n., # 100 tabs, 3 total refill(s ), [facility] pharmacy dispense (Rx) Oral (given by mouth) Ordered 100.0 1485C-A HC McChord Tylenol 325 mg oral tablet 1 tabs, Oral, every 4 hr, PRN pain or fever, # 100 tabs, 3 total refill(s ), [facility] pharmacy dispense (Rx) Oral (given by mouth) Discont inued 10/08/2017 100.0 0125C-A AFIA Bess Allergies, Adverse Reactions, Alerts Combined list of allergies from Department of Defense and Veterans Affairs facilities. It does not include entries that were removed or entered in error. Substance Category Reaction Severity Reaction type Status Date Reported Comments Source NO OUTPUT FOR NCID 547101 Drug allergy (disorder) active 12/26/2007 [facility] Immunizations Combined list of available immunizations from the Department of Defense and Veterans Affairs facilities. Immunization Series Date Given Administered By Site Reaction Lot Number CVX Code Drug Varnisher Plasticoater Status Comments Source Influenza, seasonal, injectable, preservative free 1 2015 Unknown, Provider [id number] Se[employer] (SEQ) complet ed Influenza , seasonal, injectabl e, preservat brittani free [facility] Influenza, injectable, quadrivalent, preservative free 1 2014 Unknown, Provider [id number] Larisa SmithKline (SKB) complet ed Influenza , injectabl e, quadrival ent, preservat brittani free Do[facility] Influenza, seasonal, injectable 1 2013 Unknown, Provider [id number] (IDB) complet ed Influenza , seasonal, injectabl e Do[facility] Influenza, seasonal, injectable 1 2013 Unknown, Provider [id number] Sanofi Pasteur ([facility]) complet ed Influenza , seasonal, injectabl e DoD Influenza, seasonal, injectable 6 2011 Unknown, Provider [id number] [employer] (CS) complet ed Influenza , seasonal, injectabl e DoD tetanus toxoid, reduced diphtheria toxoid, and acellular pertu is vaccine, adsorbed 1 2010 Unknown, Provider [id number] 115 [facility] (SKB) complet ed tetanus toxoid, reduced diphtheri a toxoid, and acellular pertussis vaccine, adsorbed Do[facility] Influenza, seasonal, injectable 5 2010 Unknown, Provider [id number] Sanofi Pasteur ([facility]) complet ed Influenza , seasonal, injectabl e DoD influenza virus vaccine, split virus (incl. purified surface antigen)-reti red CODE 1 2008 Unknown, Provider [id number] 15 Sanofi Pasteur ([facility]) complet ed influenza virus vaccine, split virus (incl. purified surface antigen)- retired CODE DoD influenza virus vaccine, split virus (incl. purified surface antigen)-reti red CODE 1 2007 Unknown, Provider [id number] 15 Sanofi Pasteur ([facility]) complet ed influenza virus vaccine, split virus (incl. purified surface antigen)- retired CODE DoD influenza virus vaccine, split virus (incl. purified surface antigen)-reti red CODE 1 2006 Unknown, Provider [id number] 15 [facility] ([facility]) complet ed influenza virus vaccine, split virus (incl. purified surface antigen)- retired CODE DoD tetanus and diphtheria toxoids, adsorbed, preservative free, for adult use (2 Lf of tetanus toxoid and 2 Lf of diphtheria toxoid) 1 2003 Unknown, Provider [id number] 09 Sanofi Pasteur ([facility]) complet ed tetanus and diphtheri a toxoids, adsorbed, preservat brittani free, for adult use (2 Lf of tetanus toxoid and 2 Lf of diphtheri a toxoid) DoD influenza virus vaccine, whole virus 1 2002 Unknown, Provider [id number] 16 [employer] (PWJ) complet ed influenza virus vaccine, whole virus [...] Ambulator y Pharmacy Urinalys is UA Spec [place] 1.025 *NA* (10/08/17 11:33 AM) 10/08 Ambulator [...] Hematolo gy RBC 4.59 10^6/uL 3.80 - 5.59888 10/08 N Ambulator y Pharmacy Hematolo gy [...] Hematolo gy Platelets 436 10^3/uL 140 - [phone] 10/08 H Amb[facility] y Pharmacy Hematolo gy [...] ng/mL J Clin Endocrinol Metab. 2011; 96(7): 4645-0619. Ambulator y Pharmacy Chemistr y eGFR AA 90 mL/min/1 .73_m2 10/08 N Ambulator y Pharmacy Chemistr y eGFR Non-AA 78 mL/min/1 .73_m2 10/08 L Ambulator y Pharmacy Urinalys is UA Color Light Yellow 07/30 Ambulator y Pharmacy Urinalys is UA Appear Clear 07/30 Ambulator y Pharmacy Urinalys is UA pH 7.0 07/30 Ambulator y Pharmacy Urinalys is UA Spec [place] 1.015 1.001 - 1.030 07/30 N Ambulator [...] ng/mL J Clin Endocrinol Metab. 2011; 96(7): 3304-9733. Ambulator y Pharmacy Hematolo gy WBC 12.0 10^3/uL 4.5 - 13.0103 07/30 N Ambulator y Pharmacy Hematolo gy RBC 4.82 10^6/uL 3.80 - 5.11697 07/30 N Ambulator y Pharmacy Hematolo gy [...] Hematolo gy Platelets 338 10^3/uL 140 - 529648 07/30 N Ambulator y Pharmacy Hematolo gy [...] gy Neutro Absolute 8.30 10^3/uL 1.30 - 6.29590 07/30 H Ambulator y Pharmacy Hematolo gy Lymph Absolute 2.9 10^3/uL 0.9 - 3.0103 07/30 N Ambulator y Pharmacy Hematolo gy [place] Absolute 0.6 10^3/uL 0.2 - 0.9103 07/30 [...] [facility] facilities [facility]. 2) Encounters from the Department of [facility] facilities going back up to 280 months. Location Location Details Encounter Type Encounter Number Reason For Visit Attending Provider ADM Date DC Date Status Disposition Source [facility](In t Med PCC WR) OUTPATIENT [id number] PLS EVAL PT FOR POSSIBL E KIDNEY INFECTI ON CAILIN HOOD 08/14 Released w/o Limitations [facility]( Int Med PCC WR) [facility]In t Med [facility] WR) OUTPATIENT [id number] CAILIN HOOD 08/29 Released w/o Limitations [facility]( Int Med PCC WR) [facility](Ur ol Stone WR) OUTPATIENT [id number] trouble urinati ng and flank pain ALYSON CHILDRESS 08/31 Released w/o Limitations [facility]( Urol Stone WR) [facility](ZZ Gynecolog Cl WR) OUTPATIENT [id number] routine exam BRET GANN 09/04 Released w/o Limitations [facility]( ZZGynec olog Cl WR) [facility](In t Med PCC WR) OUTPATIENT [id number] YULI CASTANON 10/02 Released w/o Limitations [facility]( Int Med PCC WR) [facility](In t Med PCC WR) OUTPATIENT [id number] CHECK UP PECHATY, SUMEET A 10/04 Released w/o Limitations [facility]( Int Med PCC WR) [facility](Or tho Cast WR) OUTPATIENT [id number] STEVIE HAYES 10/05 Released with Work/Duty Limitations [facility]( Ortho Cast WR) [facility](Or tho Cast WR) OUTPATIENT [id number] as per STEVIE Garcia 10/16 Released with Work/Duty Limitations [facility]( Ortho Cast WR) [facility](In t [facility] WR) OUTPATIENT [id number] PECHATY, SUMEET A 10/17 Released w/o Limitations [facility]( [facility] WR) [facility](In [facility] WR) TELE CONSULT [id number] blood work PECHATY, SUMEET A 10/19 [facility]( Int [facility] WR) [facility](Ur ol Incont Cl WR) OUTPATIENT [id number] PELVIC/ UDT/CYS TO JOSÉ LUIS MARK HIRSCH 10/24 Released w/o Limitations [facility]( Urol Incont Cl WR) [facility](ZZ Oncology Cl WR) OUTPATIENT [id number] RUTH SHARMA 10/24 Released w/o Limitations [facility]( ZZOncol ogy Cl WR) [facility](In [facility] WR) TELE CONSULT [id number] mri for broken left foot PECHATY, SUEMET A 11/15 [facility]( Int [facility] WR) [facility](In [facility] WR) TELE CONSULT [id number] Foot PECHATY, SUMEET A 11/26 [facility]( Int [facility] WR) [facility](In [facility] WR) OUTPATIENT [id number] PECHATY, SUMEET A 11/27 Released w/o Limitations [facility]( [facility] WR) [facility](In [facility] WR) TELE CONSULT [id number] foot infecti on PECHATY, SUMEET A 11/28 [facility]( [facility] WR) [facility](In [facility] WR) TELE CONSULT [id number] radiolo gy called unbable to process r foot xray order was placed for left CAILIN HOOD 12/03 [facility]( Int [facility] PCC WR) [facility](Z Ortho [facility] WR) OUTPATIENT [id number] FRANCOISE HERRERA 12/11 Released w/o Limitations [facility]( [facility]) [facility](Z [facility] WR) OUTPATIENT [id number] FRANCOISE HERRERA 12/13 Released w/o Limitations [facility]( [facility]) [facility](In fect Di Cl WR) OUTPATIENT [id number] CLAUDETTE GODINEZ 12/17 Released w/o Limitations [facility]( Infect Di Cl WR) [facility](In t Med PCC WR) TELE CONSULT [id number] CAILIN HOOD 12/17 [facility]( Int Med PCC WR) [facility](ZZ Ortho Clinic WR) OUTPATIENT [id number] FRANCOISE HERRERA 04/03 Released w/o Limitations [facility]( [facility]) [facility](Al lergy Cl WR) OUTPATIENT [id number] flu/ bcsw CYNTHIA FONG 04/03 Released w/o Limitations [facility]( Allergy Cl WR) [facility](In t Med PCC WR) OUTPATIENT [id number] bladder infecti on JON RODRIGUEZ 05/09 Released w/o Limitations [facility]( Int Med PCC WR) [facility](In t [facility] PCC WR) TELE CONSULT [id number] LAB RESULTS JON RODRIGUEZ 05/10 [facility]( Int Med PCC WR) [facility](In t [facility] PCC WR) OUTPATIENT [id number] red urine PECHATY, SUMEET A 05/28 Released w/o Limitations [facility]( Int Med PCC WR) [facility](In t Med PCC WR) OUTPATIENT [id number] f/u for renal stonens PECHATY, SUMEET A 06/19 Released w/o Limitations [facility]( Int Med PCC WR) [facility](In t [facility] PCC WR) TELE CONSULT [id number] PECHATY, SUMEET A 06/25 [facility]( Int Med PCC WR) [facility](Ur ology Cl FB) OUTPATIENT [id number] KIDNEY STONES DESHAWN BRYSON 07/01 Released w/o Limitations [facility]( Urology Cl FB) [facility](Ur ology Cl FB) OUTPATIENT [id number] PRE-OP FOR SURGERY . DESHAWN BRYSON 07/05 Released w/o Limitations [facility]( Urology Cl FB) [facility](In t Med PCC WR) OUTPATIENT [id number] pt need stomach check PECHATY, SUMEET A 07/29 Released w/o Limitations [facility]( Int Med PCC WR) [facility](ZZ Gen Surg Cl WR) OUTPATIENT [id number] UMBILIC AL HERNIA CHEKO POON 08/06 Released with Work/Duty Limitations [facility]( ZZGen Surg Cl WR) [facility](In t Med PCC WR) TELE CONSULT [id number] concern s CAILIN HOOD 08/08 [facility]( Int Med PCC WR) [facility](ZZ Gen Surg Cl WR) OUTPATIENT [id number] JENNIFER APPT CHEKO POON Jerson 08/30 Released w/o Limitations [facility]( ZZGen Surg Cl WR) [facility](In t Med PCC WR) OUTPATIENT [id number] MELI THAYER 09/03 Released w/o Limitations [facility]( Int Med PCC WR) [facility](In t Med PCC WR) OUTPATIENT [id number] AR SANTIAGO 09/09 Released w/o Limitations [facility]( Int Med PCC WR) [facility](Ca rdiolog Cl WR) OUTPATIENT [id number] JARRETT SPARKS 09/13 Released w/o Limitations [facility]( Cardiol og Cl WR) [facility](Ca rdiolog Cl WR) OUTPATIENT [id number] pre-cat KIM Patterson 09/13 Released w/o Limitations [facility]( Cardiol og Cl WR) [facility](Ca rdiolog Cl WR) TELE CONSULT [id number] Call back after cath september 09. NOA ANDUJAR 09/18 [facility]( Cardiol og Cl WR) [facility](ZZ Gen Surg Cl WR) OUTPATIENT [id number] FOLLOW- UP APPT CHEKO POON Jerson 09/24 Released w/o Limitations [facility]( ZZGen Surg Cl WR) [employer] FELIPA [place] [employer](F amily Practice Team 1) OUTPATIENT [id number] hernia BRIGITTE STOKES 04/21 Released w/o Limitations [employer] FELIPA [place] [employer] (Family Practic e Team 1) [facility] [employer] FEL[employer]A [place] [employer](F amily Practice Team 1) TELE CONSULT [id number] SAM BARON 10/13 [employer] [employer] (Family Practic e Team 1) [employer] [employer]F am[place] Practice Team 1) OUTPATIENT [id number] feet amanda lugo SAM MERCADO S 12/02 Released w/o Limitations [employer] [employer] (Family Practic e Team 1) [employer] [employer](F amily Practice Team 1) TELE CONSULT [id number] referra SAM Carolina 12/08 [employer] [employer] (Family Practic e Team 1) [employer] [employer](F amily Practice Team 1) TELE CONSULT [id number] referra BRIGITTE Klein 12/15 [employer] [employer] (Family Practic e Team 1) [employer] [employer](F amily Practice Team 1) OUTPATIENT [id number] stomach pain. ELVIRA GARLAND 12/25 Released w/o Limitations [employer] [place] [employer] (Family Practic e Team 1) [employer] [employer](F amily Practice Team 1) TELE CONSULT [id number] Referra NEHEMIAH Stanley 09/23 [employer] [employer] (Family Practic e Team 1) [employer] [employer](F amily Practice Team 2) OUTPATIENT [id number] Urgent care f/u/pt in pain LOR NUÑEZ 09/26 Released w/o Limitations [employer] [place] [employer] (Family Practic e Team 2) [employer] [employer](F amily Practice Team 2) TELE CONSULT [id number] Lab Review/ Need for consult LOR NUÑEZ 09/26 [employer] [employer] (Family Practic e Team 2) [employer] [employer](F amily Practice Team 1) OUTPATIENT [id number] Chronic Side/Ab dominal pain NEHEMIAH PEREZ 09/29 Released w/o Limitations [employer] [place] [employer] (Family Practic e Team 1) [employer] [employer](G ynecology Clinic) OUTPATIENT [id number] annual JULIOLILIA LYNNE 01/23 Released w/o Limitations [employer] [place] [employer] (Gyneco logy Clinic) [employer] [employer]( ynecology Clinic) TELE CONSULT [id number] Discuss lab results LILIA KIM 02/01 [employer] [employer] (Gyneco logy Clinic) [employer] [employer]( amily Practice Team 2) OUTPATIENT [id number] rash/ce llELVIRA Urena 07/07 Released w/o Limitations [employer] [employer] (Family Practic e Team 2) [employer] [employer]([facility] Team D) TELE CONSULT [id number] Medicat MATEO Turner RN 06/26 [employer] [place] [employer] ([facility] Team D) [employer] [employer]([facility] Team D) OUTPATIENT [id number] Swollen Foot, Abdomin al Pain NEHEMIAH PEREZ 07/23 Released w/o Limitations [employer] [place] [employer] ([facility] Team D) [employer] [employer]([facility] Team D) OUTPATIENT [id number] f/u lab/abd pain NEHEMIAH PEREZ 08/15 Released w/o Limitations [employer] [employer] ([facility] Team D) nd [employer] [employer]([facility] Team D) TELE CONSULT [id number] Notes Entered by: ALYSHA HARDEN 17 Aug 2011 1035 ------- ------- ------- ------- -- Gunjan request CT not x-ray would like for you to advise return call [phone]. MATEO VYAS RN 08/16 [facility] [employer] [place] [employer] ([facility] Team D) nd [employer] [employer]([facility] Team A) TELE CONSULT [id number] Notes Entered by: ROMELIA AGUERO 22 Aug 2011 0938 ------- ------- ------- ------- -- [facility]. MATEO Cuba RN 08/21 [facility] [employer] [employer] ([facility] Team A) nd [employer] [employer]([facility] Team D) OUTPATIENT [id number] f/u NEHEMIAH HERNANDEZ 09/06 Released w/o Limitations [employer] [employer] ([facility] Team D) [employer] [employer]([facility] Team D) TELE CONSULT [id number] Notes Entered by: SHAKIR DIMAS 08 Jan 2012 1321 ------- ------- ------- ------- -- MATEO Gentile RN 01/07 [employer] [employer] ([facility] Team D) [employer] [employer]([facility] Team D) TELE CONSULT [id number] Notes Entered by: CHAVEZ LLOYD 19 May 2012 1513 ------- ------- ------- ------- -- Network Results - Surgery - 05/2012 NEHEMIAH PEREZ 05/19nd [employer] [employer] ([facility] Team D) [employer] [place] [employer]([facility] Team D) TELE CONSULT [id number] Notes Entered by: KYLER MARIEE 02 Jul 2012 1542 ------- ------- ------- ------- -- Medicat ion CHAUNCEY Longoria 07/02 Referred for Appointment [employer] [employer] ([facility] Team D) [employer] [place] [employer]([facility] Team A) TELE CONSULT [id number] Notes Entered by: Jerson GILBERT 30 Jul 2012 0923 ------- ------- ------- ------- -- Med CHAUNCEY Longoria 07/30 Medication Refill Forwarded [employer] [employer] ([facility] Team A) [employer] [place] [employer]([facility] Team D) OUTPATIENT [id number] f/u htn NEHEMIAH PEREZ 08/07 Released w/o Limitations [employer] [employer] ([facility] Team D) [employer] [place] [employer]([facility] Team D) OUTPATIENT [id number] F/U Labs and EKG NEHEMIAH PEREZ 08/14 Released w/o Limitations [employer] [employer] ([facility] Team D) [employer] [employer]([facility] Team A) TELE CONSULT [id number] Notes Entered by: ROMELIA AGUERO 20 Oct 2013 1542 ------- ------- ------- ------- -- Hip pain x 6 weeks, wants appt prior to [id number]. [phone] 0PATRIZIA Servin H. 10/20 [employer] [facility] [employer] [employer] ([facility] Team A) [employer] [employer]([facility] Team A) TELE CONSULT [id number] Notes Entered by: ABILIO WELLINGTON RN 23 Oct 2013 1525 ------- ------- ------- ------- -- PATRIZIA Hedrick H. 10/23 [employer] [facility] [employer] [place] [employer] ([facility] Team A) [employer] [employer]([facility] Team A) OUTPATIENT [id number] right hip pain DESHAWN SHEIKH 10/28 Released w/o Limitations [facility] [employer] [place] [employer] ([facility] Team A) [facility] [place] [employer] Team A) OUTPATIENT [id number] BP Check DESHAWN SHEIKH 11/13 Released w/o Limitations [employer] [facility] [employer] [place] [employer] ([facility] Team A) [facility] [place] [employer] Team A) TELE CONSULT [id number] Notes Entered by: RADHA SHEIKH 18 Nov 2013 0730 ------- ------- ------- ------- -- Lab results DESHAWN SHEIKH 11/18 [employer] [facility] [employer] [place] [employer] ([facility] Team A) [employer] [place] [employer]([facility] Team Z) OUTPATIENT [id number] Notes Entered by: DION MCCOLLUM RN 24 Nov 2013 1029 ------- ------- ------- ------- -- Dm group class DION MCCOLLUM RN 11/24 Released w/o Limitations [employer] [employer] ([facility] Team Z) [employer] [employer]([facility]) OUTPATIENT [id number] Notes Entered by: JYOTI TALLEY 24 Nov 2013 1510 ------- ------- ------- ------- -- Diabete s Class MENDEL TALLEY 11/24 Released w/o Limitations [employer] [employer] ([facility]) [employer] [employer]([facility] Team Z) TELE CONSULT [id number] Notes Entered by: DION MCCOLLUM RN 25 Nov 2013 1507 ------- ------- ------- ------- -- Dm f/u phone call DION MCCOLLUM RN 11/25 [employer] [place] [employer] ([facility] Team Z) [employer] [employer]([facility] Team A) OUTPATIENT [id number] f/u on diabete s DESHAWN SHEIKH 12/01 Released w/o Limitations [employer] [place] [employer] ([facility] Team A) nd [employer] [place] [employer] [employer]([facility] Team A) TELE CONSULT [id number] Notes Entered by: ROMELIA AGUERO 29 Dec 2013 0912 ------- ------- ------- ------- -- Network results - UC 12/2013 PATRIZIA WHALEN 12/29 [employer] [employer] ([facility] Team A) [employer] [place] [employer] Command([facility] Team A) TELE CONSULT [id number] Notes Entered by: PREM BOYER 18 Jan 2014 1421 ------- ------- ------- ------- -- Network Results - AUDIO 01/2014 . [facility] DESHAWN SHEIKH 01/18 [employer] [employer] ([facility] Team A) [employer] [place] [employer]([facility] Team A) TELE CONSULT [id number] Notes Entered by: ROMELIA AGUERO 01 Feb 2014 0912 ------- ------- ------- ------- -- Network results - PT - 01/2014 DESHAWN SHEIKH 02/01 [employer], [place] [employer] ([facility] Team A) [employer] [place] [employer]([facility] Team B) TELE CONSULT [id number] Notes Entered by: CHAVEZ LLOYD 01 Feb 2014 1605 ------- ------- ------- ------- -- Network Results - Gastro 01/2014 DESHAWN SHEIKH 02/[employer] [place], [place] [employer] ([facility] Team B) [employer] [place] [employer]([facility] Team A) TELE CONSULT [id number] Notes Entered by: ROMELIA AGUERO 06 Mar 2014 0835 ------- ------- ------- ------- -- Network results - PT dischar ge- 03/2014 KORIDESHAWN Freitas 03/06 [employer] [employer] ([facility] Team A) [employer] [employer]([facility] Team A) OUTPATIENT [id number] Notes Entered by: SINGH GONZALEZ 19 Jul 2014 1436 ------- ------- ------- ------- -- walk in Mayra JAVIER MA 07/19 Released w/o Limitations [employer] [employer] ([facility] Team A) [employer] [employer]([facility] Team Z) TELE CONSULT [id number] Notes Entered by: RHIANNON SHAFFER 30 Jul 2014 1212 ------- ------- ------- ------- -- Follow up appoint MAMADOU Cullen 07/30 Referred for Appointment [employer] [employer] ([facility] Team Z) [employer] [employer]([facility] Team A) TELE CONSULT [id number] Notes Entered by: CHAVEZ LLOYD 30 Jul 2014 1437 ------- ------- ------- ------- -- Pt had appende ctomy [id number] . Experie nce some chest pain. JUAN ALBERTO Brown 07/30 Referred for Appointment [employer] [employer] ([facility] Team A) [employer] [employer]([facility] Team A) TELE CONSULT [id number] Notes Entered by: ILANA LOZANO 04 Aug 2014 1312 ------- ------- ------- ------- -- Network Results - ER - 08/2014 DESHAWN SHEIKH 08/04 [employer] [facility] [employer] [facility] [employer] ([facility] Team A) [employer] [employer]([facility] Team A) OUTPATIENT [id number] cardiol ogy referra dina DESHAWN SHEIKH 08/18 Released w/o Limitations [employer] [facility] [employer] [employer] ([facility] Team A) [employer] [employer]([facility] Team A) TELE CONSULT [id number] Notes Entered by: PEARL MCKENZIE 26 Aug 2014 1618 ------- ------- ------- ------- -- Lab results JUAN ALBERTO ALLISON 08/26 Referred for Appointment [employer] [facility] [employer] [employer] ([facility] Team A) [employer] [employer]([facility] Team A) TELE CONSULT [id number] Notes Entered by: ROMELIA AGUERO 27 Aug 2014 0852 ------- ------- ------- ------- -- Pt would like call back Re: lab results , forgot to ask for numbers . JUAN ALBERTO Pelaez 08/27 Referred for Appointment [employer] [facility] [employer] [employer] ([facility] Team A[facility] [employer] [employer]([facility] Team C) OUTPATIENT [id number] lab follow up KATHY CHILD 09/03 Released w/o Limitations [employer] [facility] [employer] ([facility] Team C) [employer] [employer]([facility] Team C) TELE CONSULT [id number] Notes Entered by: KATHY WARREN 03 Sep 2014 2110 ------- ------- ------- ------- -- Labs ESTEFANY, JUAN ALBERTO 09/04 Referred for Appointment [employer] [employer] ([facility] Team C) [employer] [place] [employer]([facility] Team A) TELE CONSULT [id number] Notes Entered by: CHAVEZ LLOYD 08 Sep 2014 0815 ------- ------- ------- ------- -- Pt req results of Lab work [id number]. [phone]. sak ESTEFANY, JUAN ALBERTO 09/08 Referred for Appointment [employer] [employer] ([facility] Team A) [employer] [place] [employer]([facility] Team C) TELE CONSULT [id number] Notes Entered by: KATHY WARREN 09 Sep 2014 2057 ------- ------- ------- ------- -- PTH nml ESTEFANY, JUAN ALBERTO 09/10 Referred for Appointment [employer] [employer] ([facility] Team C) [employer] [place] [employer]([facility] Team C) TELE CONSULT [id number] Notes Entered by: KATHY WARREN 10 Sep 2014 1304 ------- ------- ------- ------- -- Low Vit D ESTEFANY, JUAN ALBERTO 09/10 Referred for Appointment [employer] [employer] ([facility] Team C) [employer] [place] [employer]( ynecology [employer]) TELE CONSULT [id number] Notes Entered by: CHAVEZ LLOYD 10 Sep 2014 1630 ------- ------- ------- ------- -- Pain in L breast. Would like seen prior to next availab le MTF appt. linda NORM WILL Annie 09/10 Referred for Appointment [employer] [employer] ([facility] [employer] [employer]([facility]) OUTPATIENT [id number] L breast pain KATHY MARTIN 09/13 Released w/o Limitations [employer] [place] [employer] [employer] ([facility] [employer] [employer]([facility] Team C) OUTPATIENT [id number] f/u aileen JASON CHILDNA Darci 09/15 Released w/o Limitations [employer] [employer] ([facility] Team C) [employer] [employer]([facility] Team C) TELE CONSULT [id number] Notes Entered by: KATHY WARREN 16 Sep 2014 0802 ------- ------- ------- ------- -- Elevate JUAN ALBERTO Retana 09/16 Referred for Appointment [employer] [employer] ([facility] Team C) [employer] [employer]([facility] Team A) TELE CONSULT [id number] Notes Entered by: Pura MARTINEZ 08 Oct 2014 1520 ------- ------- ------- ------- -- Pt would like results of 24hr urine done [id number] . P:[phone]... JUAN ALBERTO Arreola 10/08 Referred for Appointment [employer] [employer] ([facility] Team A) [employer] [employer]([facility] Team C) TELE CONSULT [id number] Notes Entered by: KATHY WARREN 08 Oct 2014 2019 ------- ------- ------- ------- -- JUAN ALBERTO Stephens 10/09 Referred for Appointment [employer] [place] [employer] [employer] ([facility] Team C) [employer] [employer]([facility] Team A) OUTPATIENT [id number] right flank pain JONAHSOLEDADE M 10/11 Released w/o Limitations [employer] [place] [employer] [employer] ([facility] Team A) [employer] [employer]([facility] Team A) TELE CONSULT [id number] Notes Entered by: CHAVEZ LLOYD 13 Oct 2014 1449 ------- ------- ------- ------- -- Pt would like a referra l to a nephrol ogist(jose Fragoso) since her levels were hig LENCHO OWUSU 10/13 Referred for Appointment [employer] [place] [employer] [employer] ([facility] Team A) [employer] [employer]([facility] Team B) TELE CONSULT [id number] Notes Entered by: SINGH GONZALEZ 15 Oct 2014 1312 ------- ------- ------- ------- -- PER JUAN ALBERTO BARAKAT 10/15 Referred for Appointment [employer] [place] [employer] [employer] ([facility] Team B) [employer] [employer]([facility] Team A) OUTPATIENT [id number] bluried vision. JONAHPEARL M 10/19 Released w/o Limitations [employer] [employer] ([facility] Team A) [employer] [employer]([facility] Team A) TELE CONSULT [id number] Notes Entered by: CHAVEZ LLOYD 20 Oct 2014 1006 ------- ------- ------- ------- -- Jackie johns/Dr. Bess faxed info over Saturday concern ing Mri under general anes. PEARL MCKENZIE 10/[employer] [employer] ([facility] Team A) [employer] [employer]([facility] Team A) TELE CONSULT [id number] Notes Entered by: ROMELIA AGUERO 22 Oct 2014 0935 ------- ------- ------- ------- -- Network results - OPT - 10/2014 PEARL MCKENZIE 10/[employer] [employer] ([facility] Team A) [employer] [employer]([facility] Team C) TELE CONSULT [id number] Notes Entered by: PREM BOYER 29 Oct 2014 1005 ------- ------- ------- ------- -- Network Results - hem - 10/2014 . [facility] KATHY CHILD 10/29 [employer] [facility] [employer] [employer] ([facility] Team C) [employer] [employer]([facility] Team C) TELE CONSULT [id number] Notes Entered by: CHAVEZ LLOYD 01 Nov 2014 0923 ------- ------- ------- ------- -- *SUSANA Gaytan 11/01 Referred for Appointment [employer] [employer] ([facility] Team C) [employer] [employer]([facility] Team C) TELE CONSULT [id number] Notes Entered by: ROMELIA AGUERO 02 Nov 2014 0822 ------- ------- ------- ------- -- Network results - Optomet ry- 10/2014 UMESH GODWIN RN 11/02 [employer] [employer] ([facility] Team C) [employer] [employer]([facility] Team C) TELE CONSULT [id number] Notes Entered by: ROMEILA AGUERO 16 Nov 2014 1020 ------- ------- ------- ------- -- Network results - Radiolo gy -11/2014 JUAN ALBERTO ALLISON 11/16 Referred for Appointment [employer] [place] [employer] ([facility] Team C) [employer] [employer]([facility] Team A) TELE CONSULT [id number] Notes Entered by: ROMELIA AGUERO 18 Nov 2014 1440 ------- ------- ------- ------- -- Wants to discuss labs. . UMESH Singletary RN 11/18 [employer] [place] [employer] ([facility] Team A) [employer] [place] [employer]([facility] Team C) OUTPATIENT [id number] discuss employm ent restric KATHY Xiao 01/12 Released w/o Limitations [employer] [employer] ([facility] Team C) [employer] [employer]([facility] Team C) TELE CONSULT [id number] Notes Entered by: CHAVEZ LLOYD 25 Jan 2015 1209 ------- ------- ------- ------- -- *med renewal KATHY CHILD 01/25 [employer] [employer] ([facility] Team C) [employer] [employer]([facility] Team C) TELE CONSULT [id number] Notes Entered by: JAVIER ALCANTAR 10 Feb 2015 0848 ------- ------- ------- ------- -- Network Results - Endocri nology - 02/2015 KATHY CHILD 02/10 [employer] [employer] ([facility] Team C) [employer] [place] [employer]([facility] Team C) OUTPATIENT [id number] f/u hyper thyriod , summer mcdonnell on leg, doesnt want to see LEI Thomas 03/07 Released w/o Limitations [employer] [employer] ([facility] Team C) [employer] [place] [employer]([facility] Team A) TELE CONSULT [id number] Notes Entered by: ALYSHA HARDEN 29 Mar 2015 1151 ------- ------- ------- ------- -- Network results - radio - 03/2015 NEHEMIAH PEREZ 03/29 [employer] [employer] ([facility] Team A) [employer] [place] [employer]([facility] Team A) TELE CONSULT [id number] Notes Entered by: CHAVEZ LLOYD 11 May 2015 1457 ------- ------- ------- ------- -- *med renewal NEHEMIAH PEREZ 05/11 [employer] [employer] ([facility] Team A) [employer] [employer]([facility] Team A) OUTPATIENT [id number] lump on neck NATHANIEL SANTIAGO 07/14 Released w/o Limitations [employer] [employer] ([facility] Team A) [employer] [employer]([facility] Team A) TELE CONSULT [id number] Notes Entered by: ALYSHA HARDEN 21 Jul 2015 0834 ------- ------- ------- ------- -- 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 Unable to confirm MONIE YUEN RN 07/20 [employer] [employer] ([facility] Team A) [employer] [place] [employer]([facility] Team A) TELE CONSULT [id number] Notes Entered by: PREM BOYER 25 Jul 2015 1112 ------- ------- ------- ------- -- Radiolo gy order MONIE YUEN RN 07/24 [employer] [employer] ([facility] Team A) [employer] [place] [employer]([facility] Team A) OUTPATIENT [id number] F/U labs done NATHANIEL SANTIAGO 08/14 Released w/o Limitations [employer] [employer] ([facility] Team A) [employer] [place] [employer]( ynecology Clinic) TELE CONSULT [id number] Notes Entered by: MYESHA SANTIAGO 26 Aug 2015 1556 ------- ------- ------- ------- -- Xray result MONIE YUEN RN 04/22 /2016 [employer] [employer] ([facility]) [employer] [place] [employer]([facility] Team A) TELE CONSULT [id number] Notes Entered by: CHAVEZ LLOYD 09 Sep 2015 1404 ------- ------- ------- ------- -- Pt would like results on bone scan about 1-2 weeks ago. [phone]. MONIE Contreras RN 09/08 [employer] [employer] ([facility] Team A) [employer] [place] [employer]([facility] Team A) TELE CONSULT [id number] Notes Entered by: CHAVEZ LLOYD 21 Sep 2015 1244 ------- ------- ------- ------- -- Pt req results of neck, abdomin , pelvis CT about 2 weeks ago. . NATHANIEL Rodriguez 09/20 [employer] [place] [employer] ([facility] Team A) [employer] [place] [employer]([facility] Team A) OUTPATIENT [id number] bug bites, looking strange NEHEMIAH PEREZ 09/25 Released w/o Limitations [employer] [employer] ([facility] Team A) [employer] [place] [employer]([facility] Team A) TELE CONSULT [id number] Notes Entered by: Sebastián DUVALL 29 Sep 2015 1621 ------- ------- ------- ------- -- Network Results - CT - 09/2015 NATHANIEL SANTIAGO 09/28 [employer] [facility] [employer] [employer] ([facility] Team A) [employer] [place] [employer]([facility] Team A) OUTPATIENT [id number] f/u CT, other tests NATHANIEL SANTIAGO 10/03 Released w/o Limitations [employer] [employer] ([facility] Team A) [employer] [employer]([facility] Team B) TELE CONSULT [id number] Notes Entered by: MYESHA SANTIAGO 26 Oct 2015 0749 ------- ------- ------- ------- -- Please call pt about cardiol ogy UMESH Pedraza 10/25 [employer] [employer] ([facility] Team B) [employer] [place] [employer]([facility] Team A) TELE CONSULT [id number] Notes Entered by: ALYSHA HARDEN 26 Oct 2015 1420 ------- ------- ------- ------- -- Network results - Radio - 10/18/15 NICOLAS BETTS 10/25 [employer] [employer] ([facility] Team A) [employer] [place] [employer]([facility] Team A) TELE CONSULT [id number] Notes Entered by: CHAVEZ LLOYD 22 Dec 2015 1316 ------- ------- ------- ------- -- Network Results - Ortho - 12/2015 LEI THAYER 12/21 [employer] [employer] ([facility] Team A) [employer] [place] [employer]([facility] Team A) TELE CONSULT [id number] Notes Entered by: THIERRY BOND SA 16 Feb 2016 0824 ------- ------- ------- ------- -- Network Results - SAWMILL WORKER - 02/2016 JANIYA JENKINS NM 02/15 [employer] [employer] [employer] ([facility] Team A) [employer] [employer]([facility] Team A) TELE CONSULT [id number] Notes Entered by: CHAVEZ LLOYD 22 Feb 2016 1220 ------- ------- ------- ------- -- *MONIE Patricio RN 02/[employer] [employer] ([facility] Team A) [employer] [employer]([facility] Team A) OUTPATIENT [id number] UTI pain level 8 JANIYA JENKINS VA 02/22 Released w/o Limitations [employer] [employer] ([facility] Team A) [employer] [employer]([facility] Team A) TELE CONSULT [id number] Notes Entered by: THIERRY BOND SA 12 Mar 2016 0847 ------- ------- ------- ------- -- Pt has appt today at 1300, please order urine sample for this morning .MONIE Coon RN 03/[employer] [employer] ([facility] Team A) [employer] [employer]([facility] Team A) OUTPATIENT [id number] dizzine ss,kidn ey stones JANIYA JENKINS NM 03/12 Released w/o Limitations [employer] [employer] ([facility] Team A) [employer] [employer]([facility] Team A) TELE CONSULT [id number] Notes Entered by: THIERRY BOND SA S 04 Apr 2016 1145 ------- ------- ------- ------- -- Pt inquiri ng about letter of elliot arroyo for Jaiden that she dropped off.MONIE Coon RN 04/04 [employer] [place] [employer] ([facility] Team A) [employer] [place] [employer]([facility] Team A) TELE CONSULT [id number] Notes Entered by: ROMELIA AGUERO 15 May 2016 1037 ------- ------- ------- ------- -- Network results - Nephrol ogy- 05/2016 NEHEMIAH PEREZ 05/[employer] [place], [place] [employer] ([facility] Team A) [employer] [place] [employer]([facility] Team A) TELE CONSULT [id number] Notes Entered by: CHAVEZ LLOYD 17 May 2016 1039 ------- ------- ------- ------- -- Triage - Pts dizzine ss is getting bad enough she is blackin g out. MONIE Contreras RN 05/17[employer] [place], [place] [employer] ([facility] Team A) [employer] [place] [employer]([facility] Team A) TELE CONSULT [id number] Notes Entered by: ROMELIA AGUERO 18 May 2016 1112 ------- ------- ------- ------- -- Network results - Nephrol ogy labs - 05/2016 NEHEMIAH PEREZ 05/[employer] [place] [employer] ([facility] Team A) [employer] [place] [employer]([facility] Team A) TELE CONSULT [id number] Notes Entered by: Asher YUEN RN 22 May 2016 1450 ------- ------- ------- ------- -- JANIYA Fischer 05/22 [employer] [facility] [employer] [employer] [employer] ([facility] Team A) [employer] [place] [employer]([facility] Team A) OUTPATIENT [id number] UTI elio mitchell KENT TAYLOR 05/23 Released w/o Limitations [employer] [employer] ([facility] Team A) [employer] [place] [employer]([facility] Team A) TELE CONSULT [id number] Notes Entered by: CHAVEZ LLOYD 24 May 2016 1251 ------- ------- ------- ------- -- Network Results - Lab - 05/2016 JANIYA JENKINS 05/24 [employer] [place] [employer] ([facility] Team A) [employer] [place] [employer]([facility] Team A) TELE CONSULT [id number] Notes Entered by: UMESH GODWIN RN 29 May 2016 1248 ------- ------- ------- ------- -- MONIE Granados RN 05/29 [employer] [place], [place] [employer] ([facility] Team A) nd [employer] [place], [place] [employer]([facility] Team A) TELE CONSULT [id number] Notes Entered by: CHAVEZ LLOYD 30 May 2016 1019 ------- ------- ------- ------- -- Network Results - Endo - 05/2016 JANIYA JENKINS 05/30 [employer] [employer] ([facility]) [employer] [employer]([facility] Team A) TELE CONSULT [id number] Notes Entered by: THIERRY BOND SA 09 Jul 2016 1158 ------- ------- ------- ------- -- Network Results - Endo - 07/2016 JANIYA JENKINS 07/09 [employer] [employer] ([facility] Team A) [employer] [employer]([facility] Team A) TELE CONSULT [id number] Notes Entered by: ROMELIA AGUERO 10 Jul 2016 1549 ------- ------- ------- ------- -- Network results - Nephrol ogy- 07/2016 JANIYA JENKINS 07/10 [employer] [employer] ([facility] Team A) [employer] [employer]([facility] Team A) TELE CONSULT [id number] SAVITA VALENCIA 07/18 [employer] [employer] ([facility] Team A) [employer] [employer]([facility] Team A) TELE CONSULT [id number] Notes Entered by: ROMELIA AGUERO 07 Aug 2016 1149 ------- ------- ------- ------- -- Network results - Hematol ogy- 08/2016 JANIYA JENKINS 08/07 [employer] [employer] ([facility] Team A) [employer] [employer]([facility] Team A) TELE CONSULT [id number] Notes Entered by: THIERRY BOND SA S 14 Aug 2016 0855 ------- ------- ------- ------- -- Network Results - [place] - 08/2016 JANIYA JENKINS 08/14 [employer] [employer] ([facility] Team A) [employer] [place] [facility], [place] [employer]([facility] Team A) TELE CONSULT [id number] Notes Entered by: THIERRY BOND SA 20 Aug 2016 0941 ------- ------- ------- ------- -- Network Results - [place] - 08/2016 JANIYA JENKINS 08/20 [employer] [employer] ([facility] Team A) [employer] [place], [place] [employer]([facility] Team A) TELE CONSULT [id number] Notes Entered by: Pura MARTINEZ 11 Sep 2016 1501 ------- ------- ------- ------- -- Please renew OPH referra l for Optic Nerve Damage to JUAN ALBERTO Shah 09/11 [employer] [employer] ([facility] Team A) [employer] [place] [employer]([facility] Team A) TELE CONSULT [id number] Notes Entered by: CHAVEZ LLOYD 24 Sep 2016 1530 ------- ------- ------- ------- -- *med renewal JANIYA JENKINS 09/24 [facility] [place] [employer] ([facility] Team A) [employer] [place] [employer](Rachelle Carbajal [facility] Team A) TELE CONSULT [id number] Notes Entered by: CHAVEZ LLOYD 26 Nov 2016 1418 ------- ------- ------- ------- -- Network Results - [place] - 11/2016 JANIYA JENKINS SKYLAR 11/26 [employer] [employer] (Jad john [facility] Team A) [facility] Team B-NonAD) OUTPATIENT [id number] initial appt, meds and referra MATTHEW Okeefe 02/19 Released w/o Limitations [facility]( [facility] Team B-NonAD ) [facility] Team C AD/NAD) TELE CONSULT [id number] Notes Entered by: PRIMO FLORES 20 Feb 2017 1104 ------- ------- ------- ------- -- Referra MATTHEW Remy 02/20 [facility](M [facility] Team C AD/NAD) [facility] Team B-NonAD) TELE CONSULT [id number] Notes Entered by: MERCEDES DURBIN 22 Feb 2017 0955 ------- ------- ------- ------- -- Roel-Janessa herrera results -Nephro logy- BERRY PRESTON 02/22 [facility] Team B-NonAD ) Procedures Combined list of: 1) Procedures from Department of Veterans Affairs facilities going back up to thelast 18 months, not all VA non-surgical procedures are included; 2) All procedures from the Department of Defense facilities. Procedure Procedure Type Code Date Brad Abad [facility] e Mammogram 2016 Study: Bilateral digital mammography [...] Counseling Medical Management Two To Four Patients [id number] 2013 DION MCCOLLUM RN Diabetic management program, group se ion 2013 DION MCCOLLUM RN Medical Nutrition Therapy Group (2 or More Individuals) Each 30 Minutes Medical Nutrition Therapy Group (2 or More Individuals) Each 30 Minutes [id number] 2013 MENDEL TALLEY [facility] ECG 12-Lead With Interpretation And Report ECG 12-Lead With Interpretation And Report [id number] 2012 NEHEMIAH PEREZ [facility] Fecal Analysis - Occult Blood From Digital Rectal Exam 2009 LILIA KIM [facility] Vaginal SINGH Prep Vaginal SINGH Prep 11949 2009 LILIA KIM [facility] Vaginal Wet [place] Vaginal Wet [place] 76430 2009 LILIA KIM [facility] ECG 12-Lead With Interpretation And Report ECG 12-Lead With Interpretation And Report [id number] 2007 SAM MERCADO [facility] ECG 12-Lead ECG 12-Lead [id number] 2006 JARRETT SPARKS [facility] Medication Management By Pharmacist Initial Encounter Medication Management By Pharmacist Initial Encounter [id number] 2006 AR SANTIAGO [facility] Automated Urinalysis Without Microscopic Exam Automated Urinalysis Without Microscopic Exam 94728 2006 NORTH KHALIL [facility] Immunization Administration By Injection, One Vaccine Immunization Administration By Injection, One Vaccine 49102 2006 CYNTHIA FONG [facility] Influenza Split Virus Vaccine 0.5mL Dosage Intramuscular 2006 CYNTHIA FONG [facility] Diagnostic Cystoscopy Diagnostic Cystoscopy 41553 2005 MARK ORDONEZ Complex Bladder Cystometrogram Complex Bladder Cystometrogram 24039 2005 MARK ORDONEZ Complex Bladder Flow Rate Studies Complex Bladder Flow Rate Studies 01400 2005 MARK ORDONEZ EMG Of Anal/Urethral Sphincter (Other Than Needle) EMG Of Anal/Urethral Sphincter (Other Than Needle) 98271 2005 MARK ORDONEZ Manometry Intra-Abdominal Voiding Pre ure 2005 MARK ORDONEZ Vaginal Pap Smear Vaginal Pap Smear 26306 2005 BRET GANN [facility] Fecal Analysis - Occult Blood 2005 BRET GANN [facility] DISEASE MANAGEMENT PROGRAM, FOLLOW-UP/REASSE SSMENT 2013 [facility] MEDICAL NUTRITION THERAPY; GROUP (2 OR MORE INDIVIDUAL(S)), EACH 30 MINUTES 2013 [facility] EDUCATION &TRAINING, PATIENT SELF-MGT QUALIFIED, 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 USING STANDARDIZED CURRICULUM, [id number] W THE PATIENT (COULD INCL CAREGIVER/FAMILY ) EA 30 MIN; 2-4 PATIENTS 2013 [facility] ELECTROCARDIOGRA M, ROUTINE ECG WITH AT LEAST 12 LEADS; WITH INTERPRETATION AND REPORT 2012 [facility] TISSUE EXAMINATION BY SINGH SLIDE OF SAMPLES FROM SKIN, HAIR, OR NAILS FOR FUNGI OR ECTOPARASITE OVA OR MITES (EG, SCABIES) 2009 [facility] ELECTROCARDIOGRA M, ROUTINE ECG WITH AT LEAST 12 LEADS; WITH INTERPRETATION AND REPORT 2007 [facility] PHYSICAL THERAPY RE-EVALUATION 2003 [facility] EXERCISE EQUIPMENT 2003 [facility] ANOSCOPY; DIAGNOSTIC, INCLUDING COLLECTION OF SPECIMEN(S) BY BRUSHING OR WASHING, WHEN PERFORMED (SEPARATE PROCEDURE) 2003 [facility] INJECTION PROCEDURE DURING CARDIAC CATHETERIZATION; FOR SELECTIVE LEFT VENTRICULAR OR LEFT ATRIAL ANGIOGRAPHY 2006 [facility] ELECTROCARDIOGRA M, ROUTINE ECG WITH AT LEAST 12 LEADS; WITH INTERPRETATION AND REPORT 2006 [facility] MEDICATION THERAPY MANAGEMENT SERVICE(S) PROVIDED BY A PHARMACIST, INDIVIDUAL, [id number] WITH PATIENT, INITIAL 15 MINUTES, WITH ASSESSMENT, AND INTERVENTION IF PROVIDED; INITIAL ENCOUNTER 2006 [facility] UNLISTED SPECIAL SERVICE, PROCEDURE OR REPORT 2006 [facility] URINALYSIS, BY DIP STICK OR TABLET REAGENT FOR BILIRUBIN, GLUCOSE, HEMOGLOBIN, KETONES, LEUKOCYTES, NITRITE, PH, PROTEIN, SPEC GRAVITY, UROBILINOGEN, ANY NUMBER OF CONSTITUENTS; W/O MICRO, AUTOMATED 2006 [facility] INFLUENZA VIRUS VACCINE, TRIVALENT (IIV3), SPLIT VIRUS, 0.5 ML DOSAGE, FOR INTRAMUSCULAR USE 2005 [facility] VOIDING PRESSURE STUDIES, INTRA-ABDOMINAL (IE, RECTAL, GASTRIC, INTRAPERITONEAL) (LIST SEPARATELY IN ADDITION TO CODE FOR PRIMARY PROCEDURE) 2005 [facility] SCREENING PAPANICOLAOU SMEAR; OBTAINING, PREPARING AND CONVEYANCE OF CERVICAL OR VAGINAL SMEAR TO LABORATORY 2005 [facility] COLONOSCOPY, FLEXIBLE; DIAGNOSTIC, INCLUDING COLLECTION OF SPECIMEN(S) BY BRUSHING OR WASHING, WHEN PERFORMED (SEPARATE PROCEDURE) 2004 [facility] EXTERNAL OCULAR PHOTOGRAPHY WITH INTERPRETATION AND REPORT FOR DOCUMENTATION OF MEDICAL PROGRESS (EG, CLOSE-UP PHOTOGRAPHY, SLIT LAMP PHOTOGRAPHY, GONIOPHOTOGRAPHY , STEREO-PHOTOGRAP HY) 2004 [facility] Social History Combined list of available smoking, tobacco, and other social history from Department of Defense and Veterans Affairs facilities. Social History Type Response Date Comment Sour e Smoking Status Never (less than 100 in lifetime) 07/24/2017 Ambulatory Pharmacy Female 02/14/2017 Ambulatory Pha rmacy Sexual Orientation Ambula tory Pharmacy Gender identity Ambulator y Pharmacy This section is an empty social [...] her parathyroid adenoma surgery done outside of [facility] ([facility], [place], [place]?)?we will need to obtain her records and find out they post surgical recommendation f/u. Will need referral to endo if PTH remains high on repeat?test today. ? ? Differential: Adrenal insufficiency (marci supraclavicular fat pad, weight gain, fatigue, abdominal pain, female balding) Hyperparathyroidism (recurrent kidney stones, bone pain) T2DM Hypothyroidism Malignancy ? Ordered: Initial Comp Preventive Med 40 to 64 years New 51271 Office Visit Level 4 New 41079 ? 2.?Screening status ?Geller 1-2, easily burnt, blue eyes, never seen derm for full body skin scan. is requesting referral to derm. referral placed. Ordered: Initial Comp Preventive Med 40 to 64 years New 00550 Office Visit Level 4 New 27098 ? 3.?Acid reflux ?restart on Omeprazole 20mg qd 30 minutes before first meal. Ordered: Initial Comp Preventive Med 40 to 64 years New 52385 Office Visit Level 4 New 93269 ? 4.?Kidney stone (disorder) referral to urology was discussed in her prior visit 07/25/17 but it is unsure if she was able to see them. i do not see referral in the system. will need to further ask question when i call her w/ lab result. Ordered: Initial Comp Preventive Med 40 to 64 years New 38401 Office Visit Level 4 New 38104 ? 5.?Osteoarthritis (disorder) Highly?encouraged use of Tylenol (<4,000mg/day)?instead of ibuprofen given risk for kidney and gastric injury. Last renal function Feb 2017 normal. Jan 2017 hepatic panel normal. Refill for Tylenol and Ibuprofen placed. ? Ordered: Initial Comp Preventive Med 40 to 64 years New 52523 Office Visit Level 4 New 24447 ? Orders: acetaminophen, 1 tabs, Oral, every 4 hr, PRN pain or fever, Do not to exceed 4000 mg/day. Take 1-2 tab for aches/pain before you try Ibuprofen., # 100 tabs, 3 total refill(s), [facility] pharmacy dispense (Rx) [[facility] Rx: #100 x 3/3 refills remaining, last filled 10/08/17] atenolol, 1 tabs, Oral, Daily, # 90 tabs, 3 total refill(s), [facility] pharmacy dispense (Rx) [[facility] Rx: #90 x 3/3 refills remaining, last filled 10/08/17] ibuprofen, 1 tabs, Oral, every 4 hr, PRN fever, Do not to exceed 3200 mg/day. Try to take Tylenol first before Ibuprofen., # 60 tabs, 0 total refill(s), [facility] pharmacy dispense (Rx) [No refills remaining, last filled 10/08/17] omeprazole, 1 cap, Oral, Daily, Take 30 minutes before meal., # 30 cap, 3 total refill(s), [facility] pharmacy dispense (Rx) [[facility] Rx: #30 x [...] despite today s treatment plan. ? Vale Gan?[facility], [address] ?[place] ? Addendum by VALE GAN T on October 10, 2017 08:32:20 PDT 1) Differential should be: ? Differential: Jayleen's syndrome?(marci supraclavicular fat pad, weight gain, fatigue, [...] all the time patient desires [facility] Urology evaluation to recommend ideal therapy to reduce recurrence of stones - will appreciate [facility] Urology evaluation - UA/culture - f/u with PCM ? Orders: acetaminophen, 1 tabs, Oral, every 4 hr, PRN pain or fever, # 100 tabs, 3 total refill(s), [facility] pharmacy dispense (Rx) [Not filled] atenolol, 1 tabs, Oral, Daily, # 90 tabs, 3 total refill(s), [facility] pharmacy dispense (Rx) [Not filled] ergocalciferol, 1 cap, Oral, every week, # 12 cap, 3 total refill(s), [facility] pharmacy dispense (Rx) [Not filled] ibuprofen, 1 tabs, Oral, TID, PRN pain, # 60 tabs, 3 total refill(s), [facility] pharmacy dispense (Rx) [Not filled] CBC w/ Diff Culture,Urine Magnesium Level Phosphorus Level Thyroid Stimulating Hormone Urinalysis with Microscopic Vitamin D 25 Hydroxy Level 02/07/2024 Ambulatory Pharmacy Functional Status Combined list of recent functional and cognitive assessments recorded at Department of Defense and Veterans Affairs (VA).VA Functional [place] Measurement (FIM) Scale: 1 = Total Assistance (Subject = 0% +), 2 = Maximal Assistance (Subject = 25% +), 3 = Moderate Assistance (Subject = 50% +), 4 = Minimal Assistance (Subject = 75% +), 5 = Supervision, 6 = Modified [place] (Device), 7 = Complete [place] (Timely, Safely). Assessment Date/Time Source Assessment Type Assessment Skill Assessment Score Assessment Details No data available for this section
--- OUTSIDE RECORDS SUMMARY | 2024-02-07 13:50 | XMS_ITS | Clinical Summary ---
Author Organization [facility] Address [place], [place] [address] Care Team Providers Care Rn Gastroenterology Name Role Phone [facility] Primary Care Provider + Allergies No known active allergies Medications Medication Sig Dispensed Refills Start Date End Date Status LANSOPRAZOLE (PREVACID ORAL) Take 1 Tab by mouth once daily. Active ATENOLOL ORAL Take 50 mg by mouth once daily. Active ASPIRIN ORAL Take by mouth. Aspirin crystals about 1/4 each day. Each packet is 850 mg Active Social History Tobacco Use Types Packs/Day Years [...] Comments Blood Pressure 128/71 03/29/2010 5:55 PM PLANT ENGINEERING MANAGER Pulse 73 03/29/2010 4:42 PM PLANT ENGINEERING MANAGER Temperature 36.7 ??C (98.1 ??F) 03/29/2010 4:42 PM CS T Respiratory Rate 20 03/29/2010 4:42 PM PLANT ENGINEERING MANAGER Oxygen Saturation 96% 03/29/2010 5:43 PM PLANT ENGINEERING MANAGER Inhaled Oxygen Concentration - - Weight - - Height - - Body Mass Index - - Plan of Treatment Upcoming Encounters Date Type Department Care Team (Late st Contact Info) Description 02/07/2024 2:00 PM CDT Ancillary Procedure [facility] [address] [place] [address] Health Maintenance Due Date Last Done Comments [...] 07 DEXA/DXA scan for age 65+ 2021 Medicare Wellness for age 65+ 2021 Pneumococcal series for age 65+ (1 of 1 - PCV) 022 COVID-19 vaccine series (2023- season) Influenza for age 65+ 01/05/2024 Care Teams Rn Gastroenterology Relationship Specialty Start Date End Date [facility] [address] [place] [address] PCP - General 10/21/17
--- OUTSIDE RECORDS SUMMARY | 2024-02-07 13:50 | XMS_ITS ---
Author Organization [facility] Address [address] [place] [address] Care Team Providers Care Hand Sewer Shoes Name Role Phone Unavailable Unavailable Unavailable Surgery Details Not on file Complications Check Surgery Details section. Procedure Estimated Blood Loss Check Surgery Details section. Procedure Findings Check Surgery Details section. Procedure Specimens Taken Check Surgery Details section.
[2024-02-07] MEDS: PERFLUTREN LIPID MICROSPHERES 2 ML VIAL IV (14:44)
--- NOTE | 2024-02-07 14:45 | PC.NURSE ---
20G IV started in right AC. Definity given per food safety technician instructions. IV then removed intact.
== END 2024-02-07 13:48 | disposition home or self-care (01) ==
LOC: RAD 13:48
PROVIDERS: PCP Family Medicine; Visit Provider Internal Medicine
DX: I35.9 Nonrheumatic aortic valve disorder, unspecified (principal)
CPT/HCPCS: 93306

== ENCOUNTER 2024-02-25 08:16 | Outpatient (RCR) | payer MEDICARE, OTHER, SELFPAY ==
[2024-02-18] MEDS: LORazepam 1 MG TABLET PO (10:28)
[2024-02-25] MEDS: LORazepam 1 MG TABLET PO (09:08)
[2024-02-25] MEDS: REGADENOSON 0.4 MG/5 ML SYRINGE IVP (09:09)
[2024-02-25] MEDS: SODIUM CHLORIDE 0.9 % (FLUSH) 10 ML SYRINGE IVF (09:09)
[2024-02-25 09:20] VITALS: BP 118/54; PULSE 87; RESP 20
--- NOTE | 2024-02-25 11:31 | W.PM.STED ---
Stress Test Note Providers Primary care provider: Julia Holland Stress test physician: Caleb Ibarra Stress Test Note Stress test ordered: Lexiscan Indication for test: Chest pain Stress test medicine: Lexiscan Results discussion: Is a very nice 68-year-old female presents here for the above test after discussion the risks, benefits, and complications of the test, she is in agreement to proceed. Pretest EKG shows normal sinus rhythm, with a ventricular rate of 67, blood pressure 158/86. No acute ST wave changes are noted. Review of the cardiac stress test medical history form is done. Standard infusion of Lexiscan is done over 5 minute. , she had some mild nausea, she did not have any chest pain shortness of breath or other symptoms during this test. She was able to walk at a low level. No significant ST wave changes, dysrhythmias were noted during this test. Or review of the tracing afterward. Impression: Negative electrographic portion of Lexiscan, Follow up suggested: Await review of the nuclear portion, clinical correlation with this will be needed, there were no complications and patient left this testing facility in good condition
== END 2024-02-25 09:22 | disposition home or self-care (01) ==
LOC: STRESS 08:16
PROVIDERS: PCP Family Medicine; Visit Provider Internal Medicine
DX: R07.9 Chest pain, unspecified (principal)
CPT/HCPCS: 78452; 93016; 93017; A9270; A9500; J2785

== ENCOUNTER 2024-07-10 14:15 | Outpatient (CLI) | payer MEDICARE, OTHER, SELFPAY | END 2024-07-10 14:16 | disposition home or self-care (01) | LOC: MAMMO 14:16 | PROVIDERS: PCP Family Medicine; Visit Provider Family Medicine | DX: Z12.31 Encounter for screening mammogram for malignant neoplasm of breast (principal) | CPT/HCPCS: 77063; 77067 ==

== ENCOUNTER 2024-10-15 17:22 | Outpatient (CLI) | payer MEDICARE, OTHER, SELFPAY ==
--- NOTE | 2024-10-15 18:15 | CRLHL7_ITS ---
For Patients: As a result of the Cures Act, medical imaging exams and procedure reports are released immediately into your electronic medical record. You may view this report before your referring provider. If you have questions, please contact your health care provider. INDICATION: Pain left leg, behind knee. Long flight/train. TECHNIQUE: Ultrasound venous duplex lower left extremity. Compression venous exam was performed using peguero-scale, color Doppler, and spectral Doppler analysis. COMPARISON: None. FINDINGS: Sonographic imaging demonstrates the left common femoral, deep femoral, superficial femoral, popliteal, posterior tibial, peroneal, greater saphenous and contralateral right common femoral veins to be fully compressible with normal color Doppler blood flow. Left popliteal cyst measures 4.5 x 1.8 x 2.2 cm. IMPRESSION: 1. No evidence of left lower extremity deep venous thrombosis. 2. Left popliteal cyst measures up to 4.5 cm. Dictated by Onur Calle MD @ 10/15/2024 6:46:17 PM Dictated by: Onur Calle MD @ 10/15/2024 18:46:28 (Electronically Signed)
== END 2024-10-15 17:23 | disposition home or self-care (01) ==
PROVIDERS: PCP Family Medicine; Visit Provider Family Medicine
DX: M79.605 Pain in left leg (principal); M71.22 Synovial cyst of popliteal space [Baker], left knee
CPT/HCPCS: 93971

== ENCOUNTER 2024-10-29 13:21 | Outpatient (CLI) | payer MEDICARE, OTHER, SELFPAY ==
--- NOTE | 2024-10-29 13:30 | CRLHL7_ITS ---
For Patients: As a result of the Century Cures Act, medical imaging exams and procedure reports are released immediately into your electronic medical record. You may view this report before your referring provider. If you have questions, please contact your health care provider. Indication: Knee pain Technique: Left knee 3 views Comparison: None Findings: Osteopenia. Mild patellofemoral spurring at the lateral facet. No large joint effusion. No fracture. Impression: Minimal patellofemoral degenerative arthrosis. Dictated by Preston Evangelista MD @ 10/29/2024 3:42:29 PM (Electronically Signed)
--- OUTSIDE RECORDS SUMMARY | 2024-10-29 13:42 | XMS_ITS | Clinical Summary ---
Author Organization [employer] [facility] Address [address] [place] [id number] Care Team Providers Care Scientific Informatics Leader Name Role Phone [facility] Primary Care Provider + Allergies No known active allergies Medications LANSOPRAZOLE (PREVACID ORAL) Take 1 Tab by mouth once daily. Active ATENOLOL ORAL Take 50 mg by mouth once daily. Active ASPIRIN ORAL Take by mouth. Aspirin crystals about 1/4 each day. Each packet is 850 mg Active metoprolol tartrate (LOPRESSOR) 25 mg tablet Take 4 Tablets (100 mg) by mouth. Given per CTA protocol. 4 Active nitroglycerin (NITROSTAT) 0.[address] 2 Tablets (0.8 mg) under the tongue. Given per CTA protocol. 4 Active rosuvastatin (Crestor) 20 mg tabletIndications:H yperlipidemia, unspecified hyperlipidemia type Take 1 Tablet (20 mg) by mouth at bedtime. 90 Tablet 3 4 Active Encounters Date Type Department Care Team Description 08/20/2024 Lab Requisition [facility] [phone] Chato Braga MBBS from Last 3 Months Social History Tobacco Use Types Packs/Day Years Used Date Smoking Tobacco: Never Assessed Comments Unknown Sex and Gender Information Value Date Recorded Sex Assigned at Not on file Legal Sex Female 8:01 AM SOCK FOLDER Gender Identity Not on file Sexual Orientation Not on file Obstetrics History Last Filed Vital Signs Vital Sign Reading Time Taken Comments Blood Pressure 128/71 03/29/2010 5:55 PM SOCK FOLDER Pulse 73 03/29/2010 4:42 PM SOCK FOLDER Temperature 36.7 C (98.1 F) 03/29/2010 4:42 PM SOCK FOLDER Respiratory Rate 20 03/29/2010 4:42 PM SOCK FOLDER Oxygen Saturation 96% 03/29/2010 5:43 PM SOCK FOLDER Inhaled Oxygen Concentration - - Weight - - Height - - Body Mass Index - - Plan of Treatment Health Maintenance Due Date Last Done Comments Tdap 11/23/1967 Depression screening for age 12+ 1968 BMI (ht and wt on same day) for age 18+ 1974 Hepatitis C screening for ag e 18-79 1974 Pneumococcal series for age 50+ (1 of 2 - PCV) 11/23/1975 Tetanus booster 1976 Colonoscopy through age 75 2001 Lipids for age 45-75 2001 Mammogram for age 45-75 2001 Zoster (shingles) series for age 50+ (1 of 2) 2006 DEXA/DXA scan for age 65+ 2021 Medicare Wellness for age 65+ 2021 COVID-19 vaccine series ( - 2023- season) 2024 Influenza Vaccine (Season Ended) 2025 RSV vaccine for adults or (1 - 1-dose 75+ series) 11/23/2031 Hepatitis B series for 19+ Aged Out N o longer eligible based on patient's age to complete this topic Procedures Procedure Name Priority Date/Time Associated Diagnosis Comments PERIPHERAL BLD MORPHOLOGY Routine 08/20/2024 3:06 PM CDT Anemia, unspecified Primary hyperparathyroidism (HC) Chronic fatigue, unspecified Thrombocytosis, unspecified from Last 3 Months Results * PERIPHERAL BLD MORPHOLOGY (08/20/2024 3:06 PM CDT) Case Report Special Hematology Report Case: [id number] Authorizing Provider: Chato Braga MBBS Collected: 08/20/2024 6510 Ordering Location: [facility] Received: 08/20/2024 3312 Pathologist: Slade Santo MD Specimen: Blood 08/21/2024 11:31 AM CDT [facility] Final Diagnosis PERIPHERAL BLOOD: 1. Hypochromic, microcytic anemia with features favoring iron deficiency 2. Please confirm with ferritin and iron panel determination 3. Mild absolute neutrophilia, benign/nonspecif ic 4. Mild thrombocytosis; most likely secondary to iron deficiency 5. See comment 08/21/2024 11:31 AM CDT [facility] at 1131 CDT Comment The most common etiology for microcytic anemia is iron deficiency. Recommend correlation with serum iron studies, including ferritin and soluble transferrin receptor assay. Anemia of chronic disease can also exhibit microcytic features. Concurrent anemia of renal insufficiency, medication effect and anatomic blood loss cannot be excluded. There are no findings to suggest hemolysis or a primary bone marrow disorder. Thrombocytosis is commonly associated with iron deficiency as a reactive component. Correlation with appropriate ancillary studies and follow-up monitoring of the CBC is recommended 08/21/2024 11:31 AM T [facility] Clinical Information Anemia and thrombocytosis. Physician requests peripheral blood smear morphology review. 08/21/2024 11:31 AM T [facility] CBC and Differential HEMATOLOGY PARAMETERS Tested at: [facility] RESULTS EXPECTED VALUES WBC: 12.0 4.5-68m5662/cum m ELEVATED RBC: 3.61 4.00-5.20 mil/cummDECREASE D HGB: 8.2 12-16 gm/dl DECREASED HCT: 27.9 33-51% DECREASED MCV: 77.3 80-100 fl MICROCYTIC MCH: 22.7 26-34 pg DECREASED MCHC: 29.4 32-36 gm/dl HYPOCHROMIC RDW: 16.4 11.5-15.5% ELEVATED PLT: 552 [id number]/uL ELEVATED MPV: 8.9 6.5-11 fl Retic: 2.05 0.5-1.5% ELEVATED Differential Absolute (%) Expected (%) (x10*9/L) (x10*9/L) Neutrophils: 9.51 (79.2) 1.7-7.0 (42-72%) ELEVATED Lymphocytes: 1.71 (14.2) 0.9-2.9 (20-44%) Monocytes: 0.57 (4.7) <0.9 (0-11%) Eosinophils: 0.11 (.9) <0.5 (0-2%) Basophils: 0.06 (.5) <0.3 (<3.0%) Imm Grans: 0.05 (.4) <0.3 (0-3%) (Metas, Myelos,Pros) 08/21/2024 11:31 AM CDT [facility] Microscopic Description The final diagnosis is based on microscopic examination of an appropriately stained blood smear. 08/21/2024 11:31 AM CDT [facility] Additional Information Interpreted at [facility] Central Laboratory - [address] [place] [address] 08/21/2024 11:31 AM CDT [facility] Blood BLOOD SPECIMEN / Unknown Client Collect / Unknown 08/20/2024 3:06 PM CDT 08/20/2024 6:39 PM CDT us Chato CARDOSO HEMATOLOGY Final Result [facility] [address] [place] [address], from Last 3 Months Insurance MEDICARE PART B HB ONLY MEDICARE PART A HB ONLY MEDICA [employer] [facility] Care Teams Scientific Informatics Leader Relationship Specialty Start Date End Date [facility] [address] [place] [address] PCP - General 10/21/17
--- OUTSIDE RECORDS SUMMARY | 2024-10-29 13:42 | XMS_ITS ---
Author Name Interface, [id number] Address [address] [facility] [address] [address] [facility] Address [address] [place] [address] Allergies and Adverse Reactions Medication/Group Name Reaction Severity Date No known allergies Plan Date Type Value 12/09/2024 APPOINTMENT OV 20 MIN 12/02/2024 APPOINTMENT LAB 15 MIN 09/02/2024 APPOINTMENT TREATMENT 3 HR 09/02/2024 APPOINTMENT OV 20 MIN 09/02/2024 APPOINTMENT OV 20 MIN 12/02/2024 LABORDER CMP 12/02/2024 LABORDER Iron profile 12/02/2024 LABORDER Folate panel 12/02/2024 LABORDER CBC w/ auto diff 12/02/2024 LABORDER Ferritin panel Reason for Visit OV 20 MIN Encounters Date Name 09/02/2024 Anemia 09/02/2024 Chronic GI bleeding 09/02/2024 Essential thrombocyt hemia (disorder) 09/02/2024 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 09/02/2024 Malaise and fatigue (finding) 09/02/2024 Thrombocytosis (diso rder) Medications Date Name Route Dose Frequency Instructions Start Date End Date Status Cinnamon Bark Oral active Garlic Oral activ e Magnesium Oxide Oral Daily active Ascorbic Acid Oral active Cyanocobalamin Oral active Biotin Oral Chewable active Cholecalciferol Oral active Aspirin Oral acti ve Turmeric (Curcumin) Oral acti ve Coenzyme Q10 Oral active [id number] -Phospho-Ast Oral 1,000 mg-170 mg-50 mg-80 mg activ e Ibuprofen Oral PRN ac tive Vitamin B Complex Oral Tablet active Magnesium Oral ac tive Vitamin K2 Oral (menaquinone) active Zinc Oral 25.0 mg active 2024 famotidine 10 MG/ML Injectable Solution intravenously 20.0 mg Re-initiate treatment only upon physician approval. 2024 active 2024 1 ML epinephrine 1 MG/ML Injection intramuscularly 0.3 mg once Re-initiate treatment only upon physician approval. 2024 active 2024 Solu-Medrol intravenously 125.0 mg Re-initiate treatment only upon physician approval. 2024 active 2024 Solu-Cortef intravenously 100.0 mg Re-initiate treatment only upon physician approval. 2024 active Problems Diagnosis Status Date of Diagnosis Resolution Date Malaise and fatigue (finding) Active Chronic GI bleeding Active Anemia Active Thrombocytosis (disorder) Active Hyperparathyroidism (disorder) Active Iron deficiency anemia secon ottoniel to blood loss Active 08/20/2024 Essential thrombocythemia (disorder) Active Vital Signs Date Type Value 09/02/2024 Body Temperature 97.80 09/02/2024 Heart Beat 81.00 09/02/2024 Respiratory Rate 16.00 09/02/2024 Oxygen Saturation 95.00 09/02/2024 BSA 2.16 09/02/2024 Pain Scale 0.00 09/02/2024 Weight 237.20 09/02/2024 Height 66.40 09/02/2024 BMI 37.82 09/02/2024 Intravascular Systolic 134 09/02/2024 Intravascular Diastolic 79 Notes Section * Med Onc Follow-up Note Patient Name: DEXTER LARIOS Date Of : 1955 Today's Provider:?Chato CARDOSO Date of Service:?09/02/2024 Attending Physician:?Chato Braga (Medical Oncology) Referring Provider: Shruti Enciso MD HEMATOLOGY/ MEDICAL ONCOLOGY FOLLOW UP VISIT Reason for Visit * Thrombocytosis * Anemia:??Severe iron deficiency:??Previous GI workup for bleeding??Indeterminate.?? 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 * 2003:??While patient was living in 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 2013 she moved to [place] which she did and saw hematology again,??apparently she had bone marrow biopsy at that time and check it??to testing which was negative.?? * In June??2022 patient had COVID infection and was very short of breath,??in September 2022 she was found to have severe anemia,??on September 14, 2022 her hemoglobin was 6.7 white blood cell count was 12.4 platelets 459??she was given blood transfusion.?After that she was given oral iron pills.?She was seen by gastroenterology??and had apparently upper GI endoscopy on September 2022??this was reported asnegative however I do not have records.?She was then seen by jeep driver oncologist Dr. Arnold??in??[facility] system,??she was told JAK2 was negative.?Subsequently there was no follow-up. * January 22, 2023 patient was seen by Dr. Griggs,??at [facility] and underwent a bone marrow biopsy.?Bone marrow biopsy showed normocellular bone marrow with morphologically intact trilineage hematopoiesis??there were no diagnostic features of a myeloid neoplasm.?Karyotype was 46XX.?Alexandra ent also had NGS which did not show any concerning??pathologic mutations.?? * Since then she has been taking??iron and vitamin C supplements off and on.?She remains anemic. * 06/10/2024:??Establish care with Dr. Enciso. * 08/20/2024 patient had a medical oncology consult workup was consistent with severe iron deficiency extended MPN panel was negative there were no paraproteinemia.?? * Patient now returns for planned follow-up she continues to be weak denies any visible bleeding.?? Plan * I reviewed patient's labs with her explained that there was no laboratory studies suggestive of myeloproliferative neoplasm.??Patient was negative for JAK2 mutation she was negative for extended MPN mutation panel. * I explained that thrombocytosis can be a feature of iron deficiency anemia. * Her B12 was normal folic acid was borderline low. * I recommended that we correct iron deficiency with IV iron also advised her to take B complex vitamins. * Will plan labs again in 3 months to assess response to treatment.?? * Will plan repeat GI workup but patient wants to wait for that after her trip to [place].?? Advanced Care Planning Not discussed at this visit. Pain Scale on Today's Visit 0 Pain Plan on Today's Visit No pain plan indicated for today's visit Smoking Status Smoking Tobacco : Never smoker; Smokeless Tobacco : none found; Vaping : none found Depression Screening Tool Status Was screened; Outcome positive: No; Screening Date: 08/20/2024; Screening Tool: PRIME CONNER-PHQ2; Total depression score: 0 History of Present Illness * 2003:??While patient was living in 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 2013 she moved to [place] which she did and saw hematology again,??apparently she had bone marrow biopsy at that time and check it??to testing which was negative.?? * In June??2022 patient had COVID infection and was very short of breath,??in September 2022 she was found to have severe anemia,??on September 14, 2022 her hemoglobin was 6.7 white blood cell count was 12.4 platelets 459??she was given blood transfusion.?After that she was given oral iron pills.?She was seen by gastroenterology??and had apparently upper GI endoscopy on September 2022??this was reported asnegative however I do not have records.?She was then seen by jeep driver oncologist Dr. Arnold??in??[facility] system,??she was told JAK2 was negative.?Subsequently there was no follow-up. * January 22, 2023 patient was seen by Dr. Griggs,??at [facility] and underwent a bone marrow biopsy.?Bone marrow biopsy showed normocellular bone marrow with morphologically intact trilineage hematopoiesis??there were no diagnostic features of a myeloid neoplasm.?Karyotype was 46XX.?Alexandra ent also had NGS which did not show any concerning??pathologic mutations.?? * Since then she has been taking??iron and vitamin C supplements off and on.?She remains anemic. * 06/10/2024:??Establish care with Dr. Enciso. * 08/20/2024 patient had a medical oncology consult workup was consistent with severe iron deficiency extended MPN panel was negative there were no paraproteinemia.?? * 09/02/2024 patient was given a course of IV iron she received iron dextran 1000 mg.?? Interval History { } Review of Systems Remaining 14 point comprehensive review of systems within normal limits. NCCN Distress Thermometer and Problem List were collected and documented in the patient chart.?? Remarkable symptoms and concerns were discussed with the patient.?? Any additional follow-up is indicated in the plan. Past Medical and Surgical History Thrombocytosis - Onset: 08/05/2024 ??? Hyperparathyroidism - Onset: 08/20/2022 - Hyperparathyroidism was undiagnosed for many years. Had adenoma removed 2016 ??? Vitamin D deficiency - Onset: 06/10/2024 ??? Pure hypercholesterolemia - Onset: 08/05/2024 ??? Chondrocalcinosis - Onset: 09/04/2022 - Calcium pyrophosphate deposition disease (CPPD) ??? Calcium pyrophosphate deposition disease - Onset: 09/04/2022 ??? Morbid obesity- Onset: 08/23/2022 - Morbid (severe) obesity due to excess calories ??? Iron deficiency anemia - Onset: 07/07/2024 - Anemia Iron Deficiency ??? Chronic anemia - Onset: 07/07/2024 ??? Anemia - Onset: 03/14/2023 - had bone marrow biopsy at [place] ??? 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 Claustrophobia - Onset: 03/14/2023 - Claustrophobia ??? Visual alteration - Onset: 06/10/2024 ??? 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 Disorder of optic nerve - Onset: 07/07/2024 ??? Aortic valve disorder - Onset: 08/20/2022 - Calcification of aortic valve ??? Essential hypertension - Onset: 08/13/2022 - Hypertension,not currently taking medication ??? Coronary atherosclerosis - Onset: 07/07/2024 Calcification of coronary artery- Onset: 06/10/2024 - noted on previous CT scans ??? Aortic valve calcification - Onset: 08/20/2022 ??? Posterior rhinorrhea - Onset: 03/14/2023 - Post-nasal drainage ??? Hiatal hernia - Onset: 03/14/2023 - Hiatal hernia ??? Diverticular disease - Onset: 03/14/2023 -Diverticulosis ??? ICdney stone - Onset: 08/20/2022 - Recurrent nephrolithiasis, has had surgical removal in the past ??? Cystocele - Onset: 06/10/2024 - stage 3 prolapse, referred to [facility] 06/04/23 ??? Alopecia - Onset: 03/14/2023 - Alopecia ??? Chronic back pain - Onset: 03/14/2023 - Chronic right-sided back pain ??? Abnormal gait due to muscle weakness - Onset: 07/07/2024 ??? Increasedfrequency of urination - Onset: 07/07/2024 ??? Left flank pain - Onset: 06/10/2024 ??? Prediabetes - Onset: 12/20/2023 - Prediabetes,Alc 5.8% 2022 ??? 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 COVID-19 - Onset: 06/10/2024 - Jun ??? Pain of left breast - Onset: 06/10/2024 ??? Recurrent kidney stone - Onset: 06/10/2024 ??? St atin declined - Onset: 07/07/2024 Current Medications Medication List Name Date Magnesium Oral 09/02/2024 Vitamin D3 (Cholecalciferol Oral) 2024 Zinc Oral 08/20/2024 Turmeric (Curcumin) Oral 09/02/2024 Krill Oil (Igsog-[id number]-[id number]-Izmbhgr-Ipp Oral 1,000 mg-170 mg-50 mg-80 mg) 08/20/2024 Vitamin K2 Oral (menaquinone) 08/20/2024 Aspirin Oral 08/20/2024 Ibuprofen Oral 08/20/2024 Co Q-10 (Coenzyme Q10 Oral) 08/20/2024 Biotin Oral Chewable 08/20/2024 Vitamin C (Ascorbic Acid Oral) Garlic Oral 08/20/2024 Vitamin B Complex Oral Tablet 09/02/2024 Cinnamon Bark Oral 08/20/2024 Magnesium Oxide Oral 08/20/2024 Vitamin B-12 (Cyanocobalamin Oral) 09/02 Allergies No known medication allergies Family History Social History Patient lives in [place].?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 Vital Signs Blood pressure: 134/79, Sitting, L arm, Regular, Pulse: 81, Temperature: 97.8 F, Respirations: 16, O2 sat: 95%, At Rest, Room Air, Pain Scale: 0, Height: 66.4 in, Weight: 237.2 lb, BSA: 2.16, BMI: 37.82 kg/m2 Flu vaccine - Adult (02/2024), Not given other reason Performance Status ECOG or Karnofsky ECOG: Not recorded Karnofsky: Not recorded Physical Exam Pleasant 68-year-old lady appears comfortable no acute distress ECOG performance score 2 Genetics/Molecular/Biomarkers * Anemia * Iron deficiency anemia secondary to blood loss ( Date of Dx:08/20/2024 ) Lab Results CBC Lab Results 08/25/2024 08/20/2024 08/05/2024 06/10/2024 03/26/20 24 04/11/2023 CBC WBC x 10^3/uL 12.0 (H) RBC x 10^6/uL 3.61 (L) NRBC % /100 wbc 0.0 HGB g/dL 8.2 (L) HCT % 27.9 (L) MCV fL 77.3 (L) MCH pg 22.7 (L) MCHC g/dL 29.4 (L) RDW % 16.40 (H) PLT x 10^3/uL 552 (H) MPV fL 8.9 (L) Beulah % 79.3 (H) LY % 14.2 MO % 4.7 (L) EO % 0.9 IG % 0.4 Beulah # (ANC) x 10^3/uL 9.5 (H) BA % 0.5 MO # x 10^3/uL 0.6 EO # x 10^3/uL 0.1 BA # x 10^3/uL 0.1 IG # x 10^3/uL 0.05 (H) LY # x 10^3/uL 1.7 Chemistries Lab Results 08/25/2024 08/20/2024 08/05/2024 06/10/2024 03/26/20 24 04/11/2023 Chemistries Glucose mg/dL 96 BUN mg/dL 18.0 (H) Creatinine mg/dL 0.90 Sodium mmol/L 139 Potassium mmol/L 4.1 Chloride mmol/L 105 CO2 mmol/L 25 Calcium mg/dL 8.6 Albumin g/dL 4.3 Total protein g/dL 7.0 Bilirubin, total mg/dL <0.1 (L) Alkaline phosphatase U/L 114 AST/SGOT U/L 21 ALT/SGPT U/L 11 GFR estimate mL/min/1.73m2 69.7 Vitamin D, 25-hydroxy ng/mL 25.30 (L) ? Lab Results 08/25/2024 08/20/2024 08/05/2024 06/10/2024 03/26/20 24 04/11/2023 Anemia Labs Iron ug/dL 17 (L) TIBC ug/dL 406 Ferritin ng/mL 4.48 (L) Unbound iron capacity ug/dL 389 Iron, % saturation % 4 (L) Vitamin B12 pg/mL 541 Folate, serum ng/mL 4.6 Reticulocyte count % 2.05 (H) Reticulocyte, absolute x 10^6/mL 0.07 Immature reticulocyte fraction, % 23.30 (H) Reticulocyte cellular hemoglobin pg 19.2 (L) Surveys/Consents/Other Discussions WALKER Up CC: FAFortino Enciso MD (Referring) Electronically signed by Chato CARDOSO 09/02/2024 17:20 CDT
--- OUTSIDE RECORDS SUMMARY | 2024-10-29 13:42 | XMS_ITS | CCD ---
Author Name Interface, Q0Zuffism lity Address [address] [facility] [address] [place] [address] [facility] Address [address] [facility] [address] [place] [address] Care Team Providers Care Zipper Trimmer Hand Name Role Phone Chato Olivares Unavailable Unavailable Allergies and Adverse Reactions Medication/Group Name Reaction Severity Date No known allergies Care Plan Date Type Value 12/09/2024 APPOINTMENT OV 20 MIN 12/02/2024 APPOINTMENT LAB 15 MIN 09/02/2024 APPOINTMENT TREATMENT 3 HR 09/02/2024 APPOINTMENT OV 20 MIN 09/02/2024 APPOINTMENT OV 20 MIN 08/20/2024 APPOINTMENT LAB 15 MIN 08/20/2024 APPOINTMENT NEW PT CONSULT 6 0 MIN 08/20/2024 LABORDER TSH panel 08/20/2024 LABORDER Ferritin panel 08/20/2024 LABORDER Iron profile 08/20/2024 LABORDER Vitamin D, 25-Hy droxy panel 08/20/2024 LABORDER MPN (JAK2 V617F, CALR, MPL) 08/20/2024 LABORDER Vitamin B12 pane l 08/20/2024 LABORDER CBC w/ auto diff 08/20/2024 LABORDER CMP 08/20/2024 LABORDER Path peripheral blood slide review panel 08/20/2024 LABORDER Folate panel 08/20/2024 LABORDER Immunofixation, serum w/ quant IgG/A/M panel 08/25/2024 LABORDER Occult blood, fe krystle, immunoassay panel 12/02/2024 LABORDER CMP 12/02/2024 LABORDER Iron profile 12/02/2024 LABORDER Folate panel 12/02/2024 LABORDER CBC w/ auto diff 12/02/2024 LABORDER Ferritin panel Reason for Visit OV 20 MIN Encounters Date Name 12/02/2024 Anemia 12/02/2024 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 12/09/2024 OV 20 MIN 12/02/2024 LAB 15 MIN Immunizations Date Name Route Dose Instructions Refusal Reason Stat Flu vaccine - Adult Not given other reason Not Administered Diagnostic Results Date Type Test Units Lower Limit Upper Limit Result Flag Comments Status Ordered By Specimen Source Lab Address 08/20 CMP ALT/S GPT U/L 0.0 34.0 11 FINAL Chato Braga * [facility] , [address] [place] [address] [address] [id number] 0 08/20 CMP Gluco se mg/dL 74.0 100.0 96 FINAL Chato Braga * [facility] , [address] [place] [address] [place] [address] [id number] 0 08/20 CMP Total prote in g/dL 6.3 8.2 7.0 FINAL Chato Braga * [facility] , [address] [place] [address] [place] [address] [id number] 0 08/20 CMP AST/S GOT U/L 14.0 36.0 21 FINAL Chato Braga * [facility] , [address] [place] [address] [place] [address] [id number] 0 08/20 CMP Bilir ubin, total mg/dL 0.2 1.3 <0.1 Low FINAL Chato Braga * [facility] , [address] [place] [address] [place] [address] [id number] 0 08/20 CMP Sodiu m mmol/L 137.0 145.0 139 FINAL Chato Braga * [facility] , [address] [place] [address] [place] [address] [id number] 0 08/20 CMP Alkal ine phosp hatas e U/L 36.0 125.0 114 FINAL Chato Braga * [facility] , [address] [place] [address] [address] [facility] [id number] 0 08/20 CMP Calci um mg/dL 8.4 10.2 8.6 FINAL Chato Omi * [facility] , [address] [facility] [address] [facility] [id number] 0 08/20 CMP GFR estim ate ml/min /1.73m ^2 69.7 GFR is calculate d using the CKD-EPI equation. FINAL Chato Omi * [facility] , [address] [facility] [address] [facility] [id number] 08/20 CMP CO2 mmol/L 22.0 30.0 25 The expected total allowable error for CO2 is 5.6%. We have seen up to 10% differenc e in values if reported at the end of the 96 hour stability window. Please consider the clinical significa nce of a 2.0-2.5 mmol/L lower reported CO2 value if reported at the end of the 96 hour stability window. FINAL Chato Omi * [facility] , [address] [facility] [address] [facility] [id number] 08/20 CMP Chlor renan mmol/L 96.0 107.0 105 FINAL Chato Omi * [facility] , [address] [facility] [address] [facility] [id number] 08/20 CMP BUN mg/dL 7.0 17.0 18.0 High FINAL Chato Omi * [facility] , [address] [facility] [address] [facility] [id number] 0 08/20 CMP Creat inine mg/dL 0.66 1.25 0.90 FINAL Chato Braga * [facility] , [address] [facility] [address] [facility] [id number] 08/20 CMP Album in g/dL 3.5 5.0 4.3 FINAL Chato Braga * [facility] , [address] [facility] [id number] 0 08/20 CMP Potas sium mmol/L 3.5 5.1 4.1 FINAL Chato Braga * [facility] , [address] [facility] [id number] 08/20 Retic ulocy te count panel Retic ulocy te count % 0.4 1.6 2.05 High FINAL Chato Braga [facility] , [address] [place] [address] [address] [facility] [id number] 0 08/20 Retic ulocy te count panel Retic ulocy te cellu lar hemog lobin pg 28.0 37.0 19.2 Low FINAL Chato Omi [facility] , [address] [place] [address] [address] [facility] [id number] 0 08/20 Retic ulocy te count panel Retic ulocy te, absol [place] M/uL 0.02 0.08 0.07 FINAL Chato Omi [facility] , [address] [place] [address] [address] [facility] [id number] 0 08/20 Retic ulocy te count panel Immat ure retic ulocy te fract ion, % % 0.0 16.5 23.30 High FINAL Chato Braga [facility] , [address] [place] [address] [address] [facility] [id number] 0 08/20 Immun oglob ulin measu remen t IgA, quant mg/dL 61.0 348.0 117.34 Test performed at [facility] on a Binding Site Optilite Analyzer that uses a turbidime tric method for analysis. Patient testing should not be performed using multiple jerman bartholomew due to analytica l variation seen between test methodolo gies. FINAL Chato Braga * [facility] , [address] [facility] [id number] 0 08/20 Immun oglob ulin measu remen t IgG, quant mg/dL 610.0 1616.0 780.06 Test performed at [facility] on a Binding Site Optilite Analyzer that uses a turbidime tric method for analysis. Patient testing should not be performed using multiple methodolo gies due to analytica l variation seen between test methodolo gies. FINAL Chtao Braga * [facility] , [address] [facility] [id number] 0 08/20 Immun oglob ulin measu remen t IgM, quant mg/dL 35.0 242.0 94.98 Test performed at [facility] on a Binding Site Optilite Analyzer that uses a turbidime tric method for analysis. Patient testing should not be performed using multiple methodolo gies due to analytica l variation seen between test methodolo gies. FINAL Chato Braga * [facility] , [address] [facility] [id number] 0 08/20 Iron profi le Unbou nd iron capac ity ug/dL 75.0 410.0 389 FINAL Chato Braga * [facility] , [address] [facility] [id number] 0 08/20 Iron profi le Iron, % satur ation % 20.0 55.0 4 Low FINAL Chato Braga * [facility] , [address] [facility] [id number] 0 08/20 Iron profi le Iron ug/dL 37.0 170.0 17 Low FINAL Chato Braga * [facility] , [address] [facility] [id number] 0 08/20 Iron profi le TIBC ug/dL 265.0 497.0 406 FINAL Chato Braga * [facility] , [address] [facility] [id number] 0 08/20 Folat e panel Folat e, serum ng/mL 2.8 20.0 4.6 FINAL Chato Braga * [facility] , [address] [facility] [id number] 0 08/05 Misc other lab See inside sales consultant d 08/20 Ayanna tin panel Ayanna tin ng/mL 6.24 264.0 4.48 Low FINAL Chato Braga * [facility] , [address] [facility] [id number] 0 08/20 Vitam in D, 25-Hy droxy panel Vitam in D, 25-hy droxy ng/mL 30.0 100.0 25.30 Low <20 ng/mL Deficient 20-<30 ng/mL Insuffici sjc87-311 ng/mL Sufficien t>100 ng/mL Potential Toxicity FINAL Chato Braga * 08/20 Path perip heral blood slide revie w panel Patho logy/ Cytol ogy Morph ology SEE RESULTS BELOW CASE REPORTSpe cial Hematolog y Report Case: [id number] [facility] Provider: Chato Braga MBBS Collected :08/21/19 25 1506Order ing Location: [facility] Received: 5 1839Patho logist: Slade Santo, ANGELApecime n: BloodFINA L DIAGNOSIS PERIPHERA L BLOOD:1. Hypochrom ic, microcyti c anemia with features favoring iron deficienc y2. Please confirm with ferritin and iron panel determina tion3. Mild absolute neutrophi hermes, benign/no nspecific 4. Mild thrombocy tosis; most likely secondary to iron deficienc y5. See commentEl ectronica lly signed by Slade Santo MD on 08/21/2024 at 1131 CDTCOMMEN TThe most common etiology for microcyti c anemia is iron deficienc y. Recommend correlati on with serum iron studies, including ferritin and soluble transferr inrecepto r assay. Anemia of chronic disease can also exhibit microcyti c features. Concurren t anemia of renal insuffici ency, medicatio n effect and anatomic bloodloss cannot be excluded. There are no findings to suggest hemolysis or a primarybo ne marrow disorder. Thrombocy tosis is commonly associate d with iron deficienc y as a reactivec omponent. Correlati on with appropria te ancillary studies and follow-up monitorin g of the CBC is recommend edCLINICA L INFORMATI ONAnemia and thrombocy tosis. Physician requests periphera l blood smear morpholog yreview.C BC AND DIFFERENT IALHEMATO LOGY PARAMETER STested at: [facility] [place] eRESULTS EXPECTED VALUESWBC : 12.0 4.5-11x10 00/cumm ELEVATEDR BC: 3.61 4.00-5.20 mil/cummD ECREASEDH GB: 8.2 12-16 gm/dl DECREASED HCT: 27.9 33-51% DECREASED MCV: 77.3 80-100 fl MICROCYTI CMCH: 22.7 26-34 pg DECREASED MCHC: 29.4 32-36 gm/dl HYPOCHROM ICRDW: 16.4 11.5-15.5 % ELEVATEDP LT: 552 140-440x1 000/uL ELEVATEDM PV: 8.9 6.5-11 flRetic: 2.05 0.5-1.5% ELEVATEDD ifferenti alAbsolut e (%) Expected (%)(x10*9 /L) (x10*9/L) Neutrophi ls: 9.51 (79.2) 1.7-7.0 (42-72%) ELEVATEDL ymphocyte s: 1.71 (14.2) 0.9-2.9 (20-44%)M onocytes: 0.57 (4.7) <0.9 (0-11%)Eo sinophils : 0.11 (.9) <0.5 (0-2%)Bas ophils: 0.06 (.5) <0.3 (<3.0% )Imm Grans: 0.05 (.4) <0.3 (0-3%)(Me tas, Myelos,Pr os)MICROS COPIC DESCRIPTI ONThe final diagnosis is based on microscop ic examinati on of an appropria telystain ed blood smear.ADD ITIONAL INFORMATI ONInterpr eted at [facility], [facility] - [address], [place] [address] FINAL Chato Braga 08/20 Vitam in B12 panel Vitam in B12 pg/mL 239.0 931.0 541 Test performed at [facility]. [address], [place] [address] FINAL Chato Braga * [place] [facility] [place] [facility] , [address] [facility] [id number] 08/20 CBC w/ auto diff Beulah # (ANC) K/uL 1.6 6.6 9.5 High FINAL Chato Braga [place] [facility] [place] [facility] , [address] [place] [id number] 0 08/20 CBC w/ auto diff IG % % 0.0 0.5 0.4 FINAL Chato Braga [place] [facility] [place] [facility] , [address] [place] [id number] 0 08/20 CBC w/ auto diff MO # K/uL 0.2 1.3 0.6 FINAL Chato Braga [place] [facility] [place] [facility] , [address] [place] [id number] 0 08/20 CBC w/ auto diff MCV fL 80.0 104.0 77.3 Low FINAL Chato Braga [place] [facility] [place] [facility] , [address] [place] [id number] 0 08/20 CBC w/ auto diff IG # K/uL 0.0 0.03 0.05 High FINAL Chato Braga [place] [facility] [place] [facility] , [address] [place] [id number] 0 08/20 CBC w/ auto diff MO % % 6.0 15.0 4.7 Low FINAL Chato Braga [place] [facility] [place] [facility] , [address] [place] [id number] 0 08/20 CBC w/ auto diff EO # K/uL 0.0 0.6 0.1 FINAL Chato Braga [place] [facility] [place] [facility] , [address] [place] [id number] 0 08/20 CBC w/ auto diff EO % % 0.0 7.0 0.9 FINAL Chato Braga [place] [facility] [place] [facility] , [address] [place] [id number] 0 08/20 CBC w/ auto diff RBC M/uL 3.9 5.1 3.61 Low FINAL Chato Braga [place] [facility] [place] [facility] , [address] [place] [id number] 0 08/20 CBC w/ auto diff MPV fL 9.5 13.4 8.9 Low FINAL Chato Braga [place] [facility] [place] [facility] , [address] [place] [id number] 0 08/20 CBC w/ auto diff BA % % 0.0 2.0 0.5 FINAL Chato Braga [place] [facility] [place] [facility] , [address] [place] [id number] 0 08/20 CBC w/ auto diff BA # K/uL 0.0 0.2 0.1 FINAL Chato Braga [place] [facility] [place] [facility] , [address] [place] [id number] 0 08/20 CBC w/ auto diff HGB g/dL 11.3 15.2 8.2 Low FINAL Chato Braga [place] [facility] [place] [facility] , [address] [place] [id number] 0 08/20 CBC w/ auto diff MCHC g/dL 30.0 35.0 29.4 Low FINAL Chato Braga [place] [facility] [place] [facility] , [address] [place] [id number] 0 08/20 CBC w/ auto diff HCT % 35.0 48.0 27.9 Low FINAL Chato Braga [place] [facility] [place] [facility] , [address] [place] [id number] 0 08/20 CBC w/ auto diff WBC K/uL 3.0 8.9 12.0 High FINAL Chato Braga [place] [facility] [place] [facility] , [address] [place] [id number] 0 08/20 CBC w/ auto diff PLT K/uL 113.0 364.0 552 High FINAL Chato Braga [place] [facility] [place] [facility] , [address] [place] [id number] 0 08/20 CBC w/ auto diff RDW % 11.4 16.1 16.40 High FINAL Chato Braga [place] [facility] [place] [facility] , [address] [place] [id number] 0 08/20 CBC w/ auto diff LY % % 14.0 41.0 14.2 FINAL Chato Braga [place] [facility] [place] [facility] , [address] [place] [id number] 0 08/20 CBC w/ auto diff LY # K/uL 0.4 3.6 1.7 FINAL Chato Omi [place] [facility] [place] [facility] , [address] [place] [id number] 0 08/20 CBC w/ auto diff MCH pg 26.0 35.0 22.7 Low FINAL Chato Omi [place] [facility] [place] [facility] , [address] [place] [id number] 0 08/20 CBC w/ auto diff NRBC % #/100W BC 0.0 0.2 0.0 FINAL Chato Omi [place] [facility] [place] [facility] , [address] [place] [id number] 0 08/20 CBC w/ auto diff Beulah % % 43.0 74.0 79.3 High FINAL Chato Omi [place] [facility] [place] [facility] , [address] [place] [id number] 0 08/20 TSH panel TSH uIU/mL 0.47 4.68 0.62 FINAL Chato Omi * [place] [facility] [place] [facility] , [address] [facility] [id number] 0 08/20 JAK2 [id number] MUTAT ION NOT DETECTE D FINAL Chato Braga [facility] [address] [place] [id number] 4 08/20 SPECI MEN SOURC E: BLOOD FINAL Chato Braga [facility] [address] [place] [id number] 4 08/20 JAK2 EXON 12 MUTAT ION NOT DETECTE D FINAL Chato Braga [facility] [address] [place] [id number] 4 08/20 CALR EXON 9 MUTAT ION NOT DETECTE D FINAL Chato Braga [facility] [address] [place] [id number] 4 08/20 BLOCK /SPEC IMEN ID [id number] FINAL Chato Braga [facility] [address] [place] [id number] 4 08/20 CLINI KRYSTLE INDIC ATION NG FINAL Chato Braga [facility] [address] [place] [id number] 4 08/20 INTER PRETA TION SEE NOTE No mutations were detected in codon 617 or exon 12 of JAK2,or exon 9 of CALR, or exon 10 (codons 505 and 515) of MPL.The absence of mutation does not exclude the presence of amyelopro liferativ e neoplasm. To further evaluate for MPNs ifthis assay is negative, additiona l testing options including BCR-ABL1 rearrange ment, Leukovant age MPN, or CSF3R mutationa nalysis can be considere d. See below for additiona lrecommen dations on testing.T his data was reviewed and interpret ed by Nghia Valdez, PhD.HCLD( ABB) FINAL Chato Braga [facility] [address] [place] [id number] 4 08/20 ASSAY DETAI LS SEE NOTE This Next-Gene ration Sequencin g based assay interroga oscar DNAfrom leukocyte s for the presence of mutations in exon 12 andexon 14 of JAK2 (includin g codon 617), exon 9 of CALR andexon 10 of MPL (includin g codons 505 and 515). Thesensit ivity of mutation detection is approxima tely 5% butmay vary depending on the mutation type. Insertion s up to30bp and deletions up to 52bp have been successfu llydetect ed by the assay. Alteratio ns outside of the testedare as of these genes will not be detected. Synonymou s orknown non-synon ymous polymorph ic changes (SNPs) are notreport ed.JAK2 V617F mutation is associate d with myeloprol iferative neoplasms (MPNs), including polycythe adrian vera (PV),esse ntial thrombocy themia (ET) and primary myelofibr osis(PMF) ; JAK2 exon 12 mutations with PV; CALR exon 9 indelsand MPL exon 10 mutations with ET and PMF. Increasin g allelebur den of JAK2 V617F in MPNs has been shown in a number ofstudies to be associate d with increased symptoms including pruritis, splenomeg alex, and leukocyto sis. Results of thisassay should be correlate d with morpholog y and otherlabo ratory testing for final diagnosis and classific ation.To further evaluate for MPNs if this assay is negative, additiona l testing options including BCR-ABL1 rearrange ment,Leuk ovantage MPN, or CSF3R mutation analysis can beconside red.DNA was aligned to GRCh37 (hgl9) for analysis. [facility] IDs used as reference sequences [id number] (JAK2), [id number] (CALR) [id number] (MPL).For additiona l informati on, please refer tohttp:// education .[employer]/faq/F AQ211(Thi s link is being provided for informati onal/educ atcone health wesley long hospitalu rposes only.)Thi s test was developed and its analytica l performan cecharact eristics have been determine d by [facility] .It has not been cleared or approved by FDA. This assay hasbeen validated pursuant to the CLIA regulatio ns and is usedfor clinical purposes. FINAL Chato GONZALEZ [facility] [address] [facility] [place] [id number] 4 08/20 MPL EXON 10 MUTAT ION NOT DETECTE D FINAL [facility] [address] [facility] [id number] 4 08/25 Occul t blood , fecal , immun oassa y panel iFOB Negativ e FINAL [facility] , [address] [facility] [address] [id number] 0 08/25 Occul t blood , fecal , immun oassa y panel Occul t blood , stool #1 colle ction date 025 FINAL [facility] , [facility] [address] [id number] 0 08/20 Immun ofixa tion, serum w/ quant IgG/A /M panel Immun ofixa tion, serum , inter preta tion No monoclo nal peaks detecte d. Interpr eted and signed by Stephan Dunlap MD on 025 FINAL [facility] * [facility] , [facility] [address] [id number] Medications Administered Date Name Route Dose Frequency Instructions Start Date End Date Status 2024 2 ML iron-dextra n complex 50 MG/ML Injection [InFed] intravenously 975.0 mg once Flat Single Dosing over 1-2 hours.NOTE: Only administer if no hypersensitivity reaction occurs during 1 hour observation period following test dose. 09/02 inactive 2024 2 ML iron-dextra n complex 50 MG/ML Injection [InFed] intravenously 25.0 mg once TEST DOSE prior to first therapeutic dose. Administer undiluted over at least 30 seconds (not to exceed 50 mg/min). Observe patient for at least 1 hour for signs and symptoms of a hypersensitivity reaction and/or anaphylaxis prior to administration of the remainder of the therapeutic dose. Ensure epinephrine (IM) is immediately available. 09/02 inactive Medications Date Name Route Dose Frequency Instructions Start Date End Date Status Aspirin Oral acti ve Cholecalciferol Oral active Vitamin B Complex Oral Tablet active Dumsr-Mh3-IVQ-EP A-Wrtohse-Mtl Oral 1,000 mg-170 mg-50 mg-80 mg active Cinnamon Bark Oral active Coenzyme Q10 Oral active Turmeric (Curcumin) Oral acti ve Ascorbic Acid Oral active Ibuprofen Oral PRN ac tive Zinc Oral 25.0 mg active Cyanocobalamin Oral active Vitamin K2 Oral (menaquinone) active Biotin Oral Chewable active Atenolol Oral Daily eulogio ctive Iron-Vitamin C Oral Delayed Release 65 mg iron-125 mg Twice a day inacti ve Magnesium Oral ac tive Garlic Oral activ e Fluconazole Oral Tablet Daily inactive Magnesium Oxide Oral Daily active Phenazopyridine Oral inactive 09/02 1 ML epinephrine 1 MG/ML Injection intramuscularly 0.3 mg once Re-initiate treatment only upon physician approval. 2024 active 09/02 Solu-Medrol intravenously 125.0 mg Re-initiate treatment only upon physician approval. 2024 active 09/02 famotidine 10 MG/ML Injectable Solution intravenously 20.0 mg Re-initiate treatment only upon physician approval. 2024 active 09/02 Solu-Cortef intravenously 100.0 mg Re-initiate treatment only upon physician approval. 2024 active Patient Education Date Type Value 09/02/2024 Iron Dextran Com plex Problems Diagnosis Status Date of Diagnosis Resolution Date Malaise and fatigue (finding) Active Chronic GI bleeding Active Anemia Active Thrombocytosis (disorder) Active Hyperparathyroidism (disorder) Active Iron deficiency anemia secon ottoniel to blood loss Active 08/20/2024 Essential thrombocythemia (disorder) Active Procedures Date Category Name Instructions Status 08/21/2024 Physician Order GI consult Refer tO [facility] I for egd and colonoscopy Ordered 08/27/2024 Physician Order RTC nurse for ir on infusion Iron infusion, pharmacy to confirm type and frequency of iron product per insurance coverage, scheduling to contact patient if appointments need to be changed Ordered 09/02/2024 Physician Order RTC MD Ordered 12/02/2024 Physician Order RTC MD Ordered Social History Date Name Value 08/20/2024 Smoking Status Never smoker 09/02/2024 Sex Female Visits Date Type Value 12/09/2024 OV 20 MIN 12/02/2024 LAB 15 MIN Vital Signs Date Type Value 08/20/2024 BMI 37.38 08/20/2024 Weight 234.40 08/20/2024 Pain Scale 4.00 08/20/2024 Intravascular Systolic 139 08/20/2024 Intravascular Diastolic 83 08/20/2024 BSA 2.15 08/20/2024 Respiratory Rate 17.00 08/20/2024 Heart Beat 88.00 08/20/2024 Body Temperature 98.60 08/20/2024 Height 66.40 08/20/2024 Oxygen Saturation 97.00 09/02/2024 BSA 2.16 09/02/2024 BMI 37.82 09/02/2024 Height 66.40 09/02/2024 Weight 237.20 09/02/2024 Pain Scale 0.00 09/02/2024 Intravascular Systolic 134 09/02/2024 Intravascular Diastolic 79 09/02/2024 Oxygen Saturation 95.00 09/02/2024 Respiratory Rate 16.00 09/02/2024 Body Temperature 97.80 09/02/2024 Heart Beat 81.00 Notes Section * Med Onc Follow-up Note Patient Name: DEXTER LARIOS Date Of : 1955 Today's Provider:?Chato CARDOSO Date of Service:?09/02/2024 Attending Physician:?Chato Braga (Medical Oncology) Referring Provider: Shruti Enciso MD HEMATOLOGY/ MEDICAL ONCOLOGY FOLLOW UP VISIT Reason for Visit * Thrombocytosis * Anemia:?Severe iron deficiency:?Previous GI workup for bleeding?Indeterminate.? 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 * 2003:?While patient was living in [facility] she?was referred for a hematology consult at [facility] due to abnormal?CBC/her platelets were found to be high.?I do not have records from [facility].?She was however told that she had essential thrombocytosis.? 2013 shemoved to [place] which she did and saw hematology again,?apparently she had bone marrow biopsy atthat time and check it?to testing which was negative.? * In June?2022 patient had COVID infection and was very short of breath,?in September 2022 she was found to have severe anemia,?on September 14, 2022 her hemoglobin was 6.7 white blood cell count was 12.4 platelets 459?she was given blood transfusion.?After that she was given oral iron pill s.?She was seen by gastroenterology?and had apparently upper GI endoscopy on September 2022?this was reported as negative however I do not have records.?She was then seen by septic tank cleaner oncologist Dr. Arnold?in?[facility] system,?she was told JAK2 was negative.?Subsequently there was no follow-up. * January 22, 2023 patient was seen by Dr. Griggs,?at [facility] and underwent a bone marrow biopsy.?Bone marrow biopsy showed normocellular bone marrow with morphologically intact trilineage hematopoiesis?there were no diagnostic features of a myeloid neoplasm.?Karyotype was 4 6XX.?Patient also had NGS which did not show any concerning?pathologic mutations.? * Since then she has been taking?iron and vitamin C supplements off and on.?She remains anemic. * 06/10/2024:?Establish care with Dr. Enciso. * 08/20/2024 patient had a medical oncology consult workup was consistent with severe iron deficiency extended MPN panel was negative there were no paraproteinemia.? * Patient now returns for planned follow-up she continues to be weak denies any visible bleeding.? Plan * I reviewed patient's labs with her explained that there was no laboratory studies suggestive of myeloproliferative neoplasm.?Patient was negative for JAK2 mutation she was [...] in 3 months to assess response to treatment.? * Will plan repeat GI workup but patient wants to wait for that after her trip to [place].? Advanced Care Planning Not discussed at this [...] score: 0 History of Present Illness * 2003:?While patient was living in [facility] she?was referred for a hematology consult at [facility] due to abnormal?CBC/her platelets were found to be high.?I do not have records from [facility].?She was however told that she had essential thrombocytosis.? 2013 shemoved to [place] which she did and saw hematology again,?apparently she had bone marrow biopsy atthat time and check it?to testing which was negative.? * In June?2022 patient had COVID infection and was very short of breath,?in September 2022 she was found to have severe anemia,?on September 14, 2022 her hemoglobin was 6.7 white blood cell count was 12.4 platelets 459?she was given blood transfusion.?After that she was given oral iron pill s.?She was seen by gastroenterology?and had apparently upper GI endoscopy on September 2022?this was reported as negative however I do not have records.?She was then seen by septic tank cleaner oncologist Dr. Arnold?in?[facility] system,?she was told JAK2 was negative.?Subsequently there was no follow-up. * January 22, 2023 patient was seen by Dr. Griggs,?at [facility] and underwent a bone marrow biopsy.?Bone marrow biopsy showed normocellular bone marrow with morphologically intact trilineage hematopoiesis?there were no diagnostic features of a myeloid neoplasm.?Karyotype was 4 6XX.?Patient also had NGS which did not show any concerning?pathologic mutations.? * Since then she has been taking?iron and vitamin C supplements off and on.?She remains anemic. * 06/10/2024:?Establish care with Dr. Enciso. * 08/20/2024 patient had a medical oncology consult workup was consistent with severe iron deficiency extended MPN panel was negative there were no paraproteinemia.? * 09/02/2024 patient was given a course of IV iron she received iron dextran 1000 mg.? Interval History { } Review of Systems Remaining 14 point comprehensive review of systems within normal limits. NCCN Distress Thermometer and Problem List were collected and documented in the patient chart.? Remarkable symptoms and concerns were discussed with the patient.? Any additional follow-up is indicated in the plan. Past Medical and Surgical History Thrombocytosis - Onset: 08/05/2024 ? Hyperparathyroidism - Onset: 08/20/2022 - Hyperparathyroidism was undiagnosed for many years. Had adenoma removed 2016 ? Vitamin D deficiency - Onset: 06/10/2024 ? Pure hypercholesterolemia - Onset: 08/05/2024 ? Chondrocalcinosis - Onset: 06/2022 - Calcium pyrophosphate deposition disease (CPPD) ? Calcium pyrophosphate deposition disease - Onset: 09/04/2022 ? Morbid obesity- Onset: 08/23/2022 - Morbid (severe) obesity due to excess calories ? Iron deficiency anemia - Onset: 07/07/2024 - Anemia Iron Deficiency ? Chronic anemia - Onset: 07/07/2024 ? Anemia - Onset: 03/14/2023 - had bone marrow biopsy at [place] ? Neutrophilia disorder - Onset: 08/05/2024 ? Claustrophobia - Onset: 03/14/2023 - Claustrophobia ? Visual alteration - Onset: 06/10/2024 ? 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 Disorder of optic nerve - Onset: 07/07/2024 ? Aortic valve disorder - Onset: 08/20/2022 - Calcification of aortic valve ? Essential hypertension- Onset: 08/13/2022 - Hypertension,not currently taking medication ? Coronary atherosclerosis - Onset: 07/07/2024 Calcification of coronary artery- Onset: 06/10/2024 - noted on previous CT scans ? Aortic valve calcification - Onset: 08/20/2022 ? Posterior rhinorrhea - Onset: 03/14/2023 - Post-nasal drainage ? Hiatal hernia - Onset: 03/14/2023 - Hiatal hernia ? Diverticular disease - Onset: 05/14/2022 - Diverticulosis ? ICdney stone - Onset: 08/20/2022 - Recurrent nephrolithiasis, hashad surgical removal in the past ? Cystocele - Onset: 06/10/2024 - stage 3 prolapse, referred to [facility] 06/04/23 ? Alopecia - Onset: 03/14/2023 - Alopecia ? Chronic back pain - Onset: 03/14/2023 - Chronic right-sided back pain ? Abnormal gait due to muscle weakness - Onset: 07/07/2024 ? Increased frequency of urination - Onset: 07/07/2024 ? Left flank pain - Onset: 06/10/2024 ? Prediabetes - Onset: 12/20/2023 - Prediabetes,Alc 5.8% 2022 ? 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 COVID-19 - Onset: 06/10/2024 - Jun ? Pain of left breast - Onset: 06/10/2024 ? Recurrent kidney stone - Onset: 06/10/2024 ? 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 Vital Signs Blood pressure: 134/79, Sitting, L [...] 19.2 (L) Surveys/Consents/Other Discussions WALKER Up CC: FAX Shruti Enciso MD (Referring) Electronically signed by Chato CARDOSO 09/02/2024 17:20 CDT * Med Onc Consult Patient Name:?DEXTER LARIOS Date of :?1955 Date of Service:?08/20/2024 Attending Physician:?Chato Braga (Medical Oncology) Referring Physician: Shruti Enciso MD INITIAL HEMATOLOGY/MEDICAL ONCOLOGY CONSULTATION Reason for Visit* Thrombocytosis * Anemia Assessment* Patient is a pleasant 68-year-old lady referred by ?Zaun.? * Patient is a poor historian,?she is currently living in [place] but?due to?her being in service patient has lived in many places.?Access to previous medical recordsis also limited.? 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 2013 shemoved to [place] which she did and saw hematology again,?apparently she had bone marrow biopsy atthat time and check it?to testing which was negative.? * In June?2022 patient had COVID infection and was very short of breath,?in September 2022 she was found to have severe anemia,?on September 14, 2022 her hemoglobin was 6.7 white blood cell count was 12.4 platelets 459?she was given blood transfusion.?After that she was given oral iron pill s.?She was seen by gastroenterology?and had apparently upper GI endoscopy on September 2022?this was reported as negative however I do not have records.?She was then seen by septic tank cleaner oncologist Dr. Arnold?in?[facility] system,?she was told JAK2 was negative.?Subsequently there was no follow-up. * January 22, 2023 patient was seen by Dr. Griggs,?at [facility] and underwent a bone marrow biopsy.?Bone marrow biopsy showed normocellular bone marrow with morphologically intact trilineage hematopoiesis?there were no diagnostic features of a myeloid neoplasm.?Karyotype was 4 6XX.?Patient also had NGS which did not show any concerning?pathologic mutations.? * Since then she has been taking?iron and vitamin C supplements off and on.?She remains anemic. * 06/10/2024:?Establish care with Dr. Enciso. Plan* I reviewed patient's past medical?history and records with her?although patient has evidence of elevated platelet count.?A diagnosis of essential thrombocythemia is not established?especially given negative JAK2 and bone marrow. * I explained that.?iron deficiency anemia can present with elevated platelet count * Will do labs today including peripheral smear iron profile B12 folic acid?will do an extended MPN panel. * Labs which were available later showed iron deficiency given history of GI bleeding?we will?give IV iron replacement also referred for new GI consult.? Advanced Care Planning Not discussed at this visit. 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 2013 shemoved to [place] which she did and saw hematology again,?apparently she had bone marrow biopsy atthat time and check it?to testing which was negative.? * In June?2022 patient had COVID infection and was very short of breath,?in September 2022 she was found to have severe anemia,?on September 14, 2022 her hemoglobin was 6.7 white blood cell count was 12.4 platelets 459?she was given blood transfusion.?After that she was given oral iron pill s.?She was seen by gastroenterology?and had apparently upper GI endoscopy on September 2022?this was reported as negative however I do not have records.?She was then seen by septic tank cleaner oncologist Dr. Arnold?in?[facility] system,?she was told JAK2 was negative.?Subsequently there was no follow-up. * January 22, 2023 patient was seen by Dr. Griggs,?at [facility] and underwent a bone marrow biopsy.?Bone marrow biopsy showed normocellular bone marrow with morphologically intact trilineage hematopoiesis?there were no diagnostic features of a myeloid neoplasm.?Karyotype was 4 6XX.?Patient also had NGS which did not show any concerning?pathologic mutations.? * Since then she has been taking?iron and vitamin C supplements off and on.?She remains anemic. * 06/10/2024:?Establish care with Dr. Enciso. Review of Systems A comprehensive review of systems was performed and the pertinent positives and negatives can be found in the History of Present Illness. Past Medical and Surgical History Thrombocytosis - Onset: 08/05/2024 ? Hyperparathyroidism - Onset: 08/20/2022 - Hyperparathyroidism was undiagnosed for many years. Had adenoma removed 2016 ? Vitamin D deficiency - Onset: 06/10/2024 ? Pure hypercholesterolemia - Onset: 08/05/2024 ? Chondrocalcinosis - Onset: 06/2022 - Calcium pyrophosphate deposition disease (CPPD) ? Calcium pyrophosphate deposition disease - Onset: 09/04/2022 ? Morbid obesity- Onset: 08/23/2022 - Morbid (severe) obesity due to excess calories ? Iron deficiency anemia - Onset: 07/07/2024 - Anemia Iron Deficiency ? Chronic anemia - Onset: 07/07/2024 ? Anemia - Onset: 03/14/2023 - had bone marrow biopsy at [place] ? Neutrophilia disorder - Onset: 08/05/2024 ? Claustrophobia - Onset: 03/14/2023 - Claustrophobia ? Visual alteration - Onset: 06/10/2024 ? 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 Disorder of optic nerve - Onset: 07/07/2024 ? Aortic valve disorder - Onset: 08/20/2022 - Calcification of aortic valve ? Essential hypertension- Onset: 08/13/2022 - Hypertension,not currently taking medication ? Coronary atherosclerosis - Onset: 07/07/2024 Calcification of coronary artery- Onset: 06/10/2024 - noted on previous CT scans ? Aortic valve calcification - Onset: 08/20/2022 ? Posterior rhinorrhea - Onset: 03/14/2023 - Post-nasal drainage ? Hiatal hernia - Onset: 03/14/2023 - Hiatal hernia ? Diverticular disease - Onset: 05/14/2022 - Diverticulosis ? ICdney stone - Onset: 08/20/2022 - Recurrent nephrolithiasis, hashad surgical removal in the past ? Cystocele - Onset: 06/10/2024 - stage 3 prolapse, referred to [facility] 06/04/23 ? Alopecia - Onset: 03/14/2023 - Alopecia ? Chronic back pain - Onset: 03/14/2023 - Chronic right-sided back pain ? Abnormal gait due to muscle weakness - Onset: 07/07/2024 ? Increased frequency of urination - Onset: 07/07/2024 ? Left flank pain - Onset: 06/10/2024 ? Prediabetes - Onset: 12/20/2023 - Prediabetes,Alc 5.8% 2022 ? 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 COVID-19 - Onset: 06/10/2024 - Jun ? Pain of left breast - Onset: 06/10/2024 ? Recurrent kidney stone - Onset: 06/10/2024 ? Statin declined - Onset: 07/07/2024 Current Medications Medication List Name Date Zinc Oral 08/20/2024 Magnesium Oxide Oral 08/20/2024 Biotin Oral Chewable 08/20/2024 Cinnamon Bark Oral 08/20/2024 Co Q-10 (Coenzyme Q10 Oral) 08/20/2024 Vitamin C (Ascorbic Acid Oral) Vitamin D3 (Cholecalciferol Oral) 2024 Vitamin K2 Oral (menaquinone) 08/20/2024 Garlic Oral 08/20/2024 Ibuprofen Oral 08/20/2024 Krill Oil (Sbyvo-Hh5-IVK-BHT-Wjfivcm-Zor Oral 1,000 mg-170 mg-50 mg-80 mg) 08/20/2024 Aspirin Oral 08/20/2024 Allergies No known medication allergies Family History Social History Patient lives in [place].?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 Vital Signs Blood pressure: 139/83, Sitting, L arm, Regular, Pulse: 88, Temperature: 98.6 F, Respirations: 17, O2 sat: 97%, At Rest, Room Air, Pain Scale: 4, Height: 66.4 in, Weight: 234.4 lb, BSA: 2.15, BMI: 37.38 kg/m2 Immunizations: Flu vaccine - Adult (02/2024), Not given other reason Oxygen Sats 97%, At Rest, Room Air Performance Status ECOG or Karnofsky ECOG: Not recorded. Karnofsky: Not recorded Physical Exam Pleasant 68-year-old lady appears?comfortable ECOG performance score 2 HEENT examination remarkable for pallor Lungs decreased breath sounds but otherwise clear Abdomen?soft nontender no palpable organomegaly Extremities no edema Genetics/Molecular/Biomarkers Lab Results CBC Lab Results 08/20/2024 08/05/2024 06/10/2024 04/11/2023 02/14/2001/22/2023 CBC WBC x 10^3/uL 12.0 (H) RBC [...] # x 10^3/uL 1.7 Chemistries Lab Results 08/20/2024 08/05/2024 06/10/2024 04/11/2023 02/14/2001/22/2023 Chemistries Glucose mg/dL 96 BUN mg/dL 18.0 (H) Creatinine mg/dL 0.90 Sodium mmol/L 139 Potassium mmol/L 4.1 Chloride mmol/L 105 CO2 mmol/L 25 Calcium mg/dL 8.6 Albumin g/dL 4.3 Total protein g/dL 7.0 Bilirubin, total mg/dL <0.1 (L) Alkaline phosphatase U/L 114 AST/SGOT U/L 21 ALT/SGPT U/L 11 GFR estimate mL/min/1.73m2 69.7 Anemia Results Lab Results 08/20/2024 08/05/2024 06/10/2024 04/11/2023 02/14/20 23 01/22/2023 Anemia Labs Iron ug/dL 17 (L) TIBC ug/dL 406 Unbound iron capacity ug/dL 389 Iron, % saturation % 4 (L) Reticulocyte count % 2.05 (H) Reticulocyte, absolute x 10^6/mL 0.07 Immature reticulocyte fraction, % 23.30 (H) Reticulocyte cellular hemoglobin pg 19.2 (L) Surveys/Consents/Other Discussions Thank you for allowing me to see DEXTER MATAMICHAEL in consult. Chato Braga MD CC: FAX Shruti Enciso MD (Referring) Electronically signed by Chato CARDOSO 08/21/2024 10:42 CDT
--- OUTSIDE RECORDS SUMMARY | 2024-10-29 13:43 | XMS_ITS | Clinical Summary ---
Author Organization [facility] Address [address], [place] [address] Care Team Providers Care Product Development Engineer Name Role Phone Unavailable Primary Care Provider Unavailabl e Source Comments You are receiving this document as you are listed as the primary care provider,follow-up provider, or the patient has been referred to you for consultation.This is in compliance with the Medicare and[facility] EHR Incentive Program,which states Providers who transition their patient to another setting of careor provider of care or refers their patient to another provider of care shouldprovide summary care record for each transition of care or referral. [facility] [employer] Allergies No known active allergies Medications buffered aspirin (AKA ASCRIPTIN) 325 MG tablet Take by mouth. Active atenolol (TENORMIN) 25 MG tablet 25 mg daily. 11/11/2021 Active aspirin EC 81 MG enteric coated tablet 1 Tablet (81 mg). Active Iron-Vitamin C (VITRON-C) 65-125 MG TABS Take 1 Tablet by mouth two times a day. Active Iron-Vitamin C (IRON 100/C) 100-250 MG Active Encounters Date Type Department Care Team Description 09/01/2024 1:00 PM CDT Office Visit [facility] [address] [address] [facility] [address] [place] [address] Juanjo Barger MD Kidney stone (Primary Dx) from Last 3 Months Social History Tobacco Use Types Packs/Day Years Used Date Smoking Tobacco: Never Assessed Comments Unknown Sex and Gender Information Value Date Recorded Sex Assigned at Female 09/01/2024 10:51 AM CDT Legal Sex Female 10:09 AM CDT Gender Identity Female 09/01/2024 10:51 AM CDT Sexual Orientation Straight 09/01/2024 10 :51 AM CDT Last Filed Vital Signs Vital Sign Reading Time Taken Comments Blood Pressure - - Pulse - - Temperature - - Respiratory Rate 17 11/23/2021 10:30 AM CDT Oxygen Saturation - - Inhaled Oxygen Concentration - - Weight 95.3 kg (210 lb) 11/23/2021 10:30 AM CDT Height 167.6 cm (5' 6) 11/23/2021 10:30 AM CDT Body Mass Index 33.89 11/23/2021 10:30 AM CDT Plan of Treatment Health Maintenance Due Date Last Done Comments Colon Cancer Screening Plan Due 1955 Hep C Screening (Preventive Services) 1955 Mammogram 1955 DTaP/Tdap/Td Vaccine (1 - Tdap) 11/23/1975 Cholesterol 2001 Pneumococcal Vaccine 50+ Yrs (1 of 1 - PCV) 2006 Zoster/Shingles Vaccine (1 o f 2) 2006 Dexa 2021 COVID-19 Vaccine ( - 2023-2 5 season) 2024 Medicare Annual Wellness Visit 05/06/2024 Influenza Vaccine (Season Ended) 2025 04/05/2012, 03/06/2011 RSV Vaccine (1 - 1-dose 75+ series) 11/23/2031 HepA Vaccine Aged Out No longer eligi ble based on patient's age to complete this topic HepB Vaccine Aged Out No longer eligi ble based on patient's age to complete this topic Hib Vaccine Aged Out No longer eligi ble based on patient's age to complete this topic IPV (Polio) Vaccine Aged Out No longe r eligible based on patient's age to complete this topic MCV4 Vaccine Aged Out No longer eligi ble based on patient's age to complete this topic Meningococcal B Vaccine Aged Out No l onger eligible based on patient's age to complete this topic Procedures Procedure Name Priority Date/Time Associated Diagnosis Comments AUTOMATED URINALYSIS DIPSTICK POCT Routine 09/01/2024 2:01 PM CDT from Last 3 Months Results * Automated Urinalysis Dipstick POCT (09/01/2024 2:01 PM CDT) Glucose Negative Negative mg/dL 09/01/2024 2:04 PM CDT [facility] Bilirubin Negative Negative 09/01/2024 2:04 PM CDT [facility] Ketones Negative Negative mg/dL 09/01/2024 2:04 PM T [facility] Specific Ambrose 1.025 1.005 - 1.030 09/01/2024 2:04 PM CDT [facility] Blood Negative Neg/Trace 09/01/2024 2:04 PM CDT [facility] pH 6.0 5.0 - 8.0 09/01/2024 2:04 PM CDT [facility] Protein Negative Neg/Trace mg/dL 09/01/2024 2:04 PM T [facility] Urobilinogen 0.2 <2.0 EU/dL 09/01/2024 2:04 PM T [facility] Nitrite Negative Negative 09/01/2024 2:04 PM [facility] Leukocyte Esterase Negative Negative 09/01/2024 2:04 PM T [facility] Color Yellow 09/01/2024 2:04 PM T [facility] Clarity Clear Clear 09/01/2024 2:04 PM [facility] Performing Location URO BU 09/01/2024 2:04 PM [facility] Urine 09/01/2024 2:01 PM CDT 09/01/2024 2:04 PM CDT us Juanjo Barger MD LAB_1 Final Result [facility] [address] [place] [id number] from Last [address] [place] [id number] [employer]
--- OUTSIDE RECORDS SUMMARY | 2024-10-29 13:44 | XMS_ITS | CCD ---
Author Name Interface, [id number] Address [address] [place], [place] [address] [address] [facility] Address [address] [place] [address] Care Team Providers Care Release And Technical Records Clerk Name Role Phone Chato Olivares Unavailable Unavailable Allergies and Adverse Reactions Care Plan Reason for Visit Encounters Immunizations Diagnostic Results Medications Administered Medications Patient Education Problems Procedures Social History Visits Vital Signs Notes Section
--- OUTSIDE RECORDS SUMMARY | 2024-10-29 13:44 | XMS_ITS | Clinical Summary ---
Author Organization [facility] Address [address] [place] [address] Care Team Providers Care Hematology Nurse Educator Name Role Phone Elsewhere, Pcp Primary Care Provider Unavailabl e Source Comments Patient records contain information from all sites at [facility]. For routine questions regarding patient records, call [phone] during business hours, M-F 8:00 AM - 5:00 PM Central Time. Record requests for emergency care only can be directed to [phone] at any time.[facility] Allergies No known active allergies Medications ibuprofen (MOTRIN) 400 mg tablet Take 400 [...] Tobacco: Never Tobacco Cessation:Counseling Given: Not Answered Hunger Vital Sign Answer Date Recorded Within [...] needed for daily living? Patient declined 04/01/2023 Housing Stability Answer Date Recorded What is your living situation today? Decline 04/01/2023 Comments No Sex and Gender Information Value Date Recorded Sex Assigned at Female 04/01/2023 1:14 PM TOLL MECHANIC Legal Sex Female 8:38 AM TOLL MECHANIC Gender Identity Female 04/01/2023 1:14 PM TOLL MECHANIC Sexual Orientation Straight 04/01/2023 1: 14 PM TOLL MECHANIC Last Filed Vital Signs Vital Sign Reading Time Taken Comments Blood Pressure 132/70 04/11/2023 2:32 PM TOLL MECHANIC Pulse 57 04/11/2023 2:32 PM TOLL MECHANIC Temperature 36.9 C (98.4 F) 04/11/2023 2:01 PM TOLL MECHANIC Respiratory Rate 13 04/11/2023 2:32 PM TOLL MECHANIC Oxygen Saturation 94% 04/11/2023 2:32 PM TOLL MECHANIC Inhaled Oxygen Concentration - - Weight 110 kg (243 lb 9.7 oz) 04/11/2023 12:07 P M TOLL MECHANIC Height 166.5 cm (5' 5.55) 04/11/2023 12:[address] Body Mass Index 39.86 04/11/2023 12:07 PM TOLL MECHANIC Plan of Treatment Health Maintenance Due Date Last Done Comments Bone Density Scan (Osteoporo sis Screen) 1956 CT Colonography 1956 Cologuard 1955 Colonoscopy 1956 Colorectal Cancer Screening 1956 FIT 1956 Fasting Glucose for Diabetes Screening 1956 Hepatitis C Screening 1956 Mammogram 1956 DTaP,Tdap,and Td Vaccines (1 - Tdap) 11/23/1975 Pneumococcal vaccine (50+ ye ars) (1 of 1 - PCV) 2006 Zoster Vaccines (1 of 2) 2006 COVID-19 Vaccine ( - 2023-2 5 season) 2024 Influenza Vaccine (#1) 2024 Depression Screening (Annual PHQ-2) 05/06/2024 Fall Risk Screen (Annual) 05/06/2024 IPV Vaccines Aged Out No longer eligi ble based on patient's age to complete this topic Insurance MEDICARE FOR LIFE MEDICA Care Teams Hematology Nurse Educator Relationship Specialty Start Date End Date Elsewhere, Pcp PCP - General Internal Medicine 01/22/23
--- OUTSIDE RECORDS SUMMARY | 2024-10-29 13:44 | XMS_ITS ---
Author Name Interface, [id number] lity Address [address] [address] [facility] Address [address] [place] [address] Allergies and Adverse Reactions Medication/Group Name Reaction [...] Oral acti ve Coenzyme Q10 Oral active Meecn-Zr0-LIY-EPA -Phospho-Ast Oral 1,000 mg-170 mg-50 mg-80 mg [...] a poor historian,??she is currently living in [place] but??due to??her being in service patient has lived in many places.?Access to previous medical records is also limited.?? 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 2013 she moved to [place] which she did and saw hematology again,??apparently [...] not have records.?She was then seen by indigo vat tender cloth oncologist Dr. Arnold??in??[facility] system,??she was told JAK2 was negative.?Subsequently there was no follow-up. * January 22, 2023 patient was seen by Dr. Griggs,??at [facility] and underwent a bone marrow biopsy.?Bone marrow [...] wait for that after her trip to [place].?? 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 2013 she moved to [place] which she did and saw hematology again,??apparently [...] not have records.?She was then seen by indigo vat tender cloth oncologist Dr. Arnold??in??[facility] system,??she was told JAK2 was negative.?Subsequently there was no follow-up. * January 22, 2023 patient was seen by Dr. Griggs,??at [facility] and underwent a bone marrow biopsy.?Bone marrow [...] 03/14/2023 - had bone marrow biopsy at [place] ??? 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 Claustrophobia [...] 06/10/2024 - stage 3 prolapse, referred to [facility] 06/04/23 ??? 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
--- OUTSIDE RECORDS SUMMARY | 2024-10-30 01:00 | XMS_ITS ---
Author Name Interface, [id number] lity Address [address] [facility] [address] [address] [facility] Address [address] [facility] [address] [place] [address] Allergies and Adverse Reactions Medication/Group Name Reaction [...] Frequency Instructions Start Date End Date Status Garlic Oral activ e Cinnamon Bark Oral active Ascorbic Acid Oral active Magnesium Oxide Oral Daily active Vitamin K2 Oral (menaquinone) active Turmeric (Curcumin) Oral acti ve Biotin Oral Chewable active Cholecalciferol Oral active Aspirin Oral acti ve Coenzyme Q10 Oral active Kyubp-Gf2-RDX-EPA -Phospho-Ast Oral 1,000 mg-170 mg-50 mg-80 mg activ e Ibuprofen Oral PRN ac tive Vitamin B Complex Oral Tablet active Magnesium Oral ac tive Cyanocobalamin Oral active Zinc Oral 25.0 mg active 2024 [...] a poor historian,??she is currently living in [place] but??due to??her being in service patient has lived in many places.?Access to previous medical records is also limited.?? * 2003:??While patient was living in [facility] she??was referred for a hematology consult at [facility] due to abnormal??CBC/her platelets were found to be high.?I do not have records from 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 2013 she moved to [place] which she did and saw hematology again,??apparently [...] not have records.?She was then seen by marine pilot oncologist Dr. Arnold??in??[facility],??she was told JAK2 was negative.?Subsequently there was no follow-up. * January 22, 2023 patient was seen by Dr. Griggs,??at [facility] and underwent a bone marrow biopsy.?Bone marrow [...] wait for that after her trip to [place].?? Advanced Care Planning Not discussed at this [...] Illness * 2003:??While patient was living in [facility] she??was referred for a hematology consult at [facility] due to abnormal??CBC/her platelets were found to be high.?I do not have records from 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 2013 she moved to [place] which she did and saw hematology again,??apparently [...] not have records.?She was then seen by marine pilot oncologist Dr. Arnold??in??[facility],??she was told JAK2 was negative.?Subsequently there was no follow-up. * January 22, 2023 patient was seen by Dr. Griggs,??at [facility] and underwent a bone marrow biopsy.?Bone marrow biopsy showed normocellular bone marrow with morphologically intact trilineage hematopoiesis??there were no diagnostic features of a myeloid neoplasm.?Karyotype was 46XX.?Alexandra ent also had NGS which did not show any concerning??pathologic mutations.?? * Since then she has been taking??iron and vitamin C supplements off and on.?She remains anemic. * 06/10/2024:??Establish care with Dr. Ecniso. * 08/20/2024 patient had a medical oncology [...] 03/14/2023 - had bone marrow biopsy at [place] ??? 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 Claustrophobia [...] 06/10/2024 - stage 3 prolapse, referred to [facility] 06/04/23 ??? 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
--- OUTSIDE RECORDS SUMMARY | 2024-10-30 01:00 | XMS_ITS | CCD ---
Author Name Interface, [id number] lity Address [address] [place], [place] [address] [place] [address] [facility] Address [address] [place] [address] Care Team Providers Care [place] Aide Name Role Phone Chato Olivares Unavailable Unavailable Allergies and Adverse Reactions Care Plan Reason for Visit Encounters Immunizations Diagnostic Results Medications Administered Medications Patient Education Problems Procedures Social History Visits Vital Signs Notes Section
--- OUTSIDE RECORDS SUMMARY | 2024-10-30 01:00 | XMS_ITS | Clinical Summary ---
Author Organization [facility] Address [address] [place] [address] Care Team Providers Care Box Lining Machine Operator Name Role Phone [facility] Primary Care Provider + Allergies No known [...] Department Care Team Description 08/20/2024 Lab Requisition [facility] [phone] Chato Braga MBBS from Last 3 Months Social History Tobacco Use Types Packs/Day Years Used Date Smoking Tobacco: Never Assessed Comments Unknown Sex and Gender Information Value Date Recorded Sex Assigned at Not on file Legal Sex Female 8:[address] Gender Identity Not on file Sexual Orientation Not on file Obstetrics History Last Filed Vital Signs Vital Sign Reading Time Taken Comments Blood Pressure 128/71 03/29/2010 5:[address] VENDOR Pulse 73 03/29/2010 4:[address] VENDOR Temperature 36.7 C (98.1 F) 03/29/2010 4:[address] VENDOR Respiratory Rate 20 03/29/2010 4:[address] VENDOR Oxygen Saturation 96% 03/29/2010 5:[address] VENDOR Inhaled Oxygen Concentration - - Weight - [...] CDT) Case Report Special Hematology Report Case: [id number] Authorizing Provider: Chato Braga MBBS Collected: 08/20/2024 4037 Ordering Location: [facility] Received: 08/20/2024 2899 Pathologist: Slade Santo MD Specimen: Blood 08/21/2024 11:31 AM CDT [facility] Final Diagnosis PERIPHERAL BLOOD: 1. Hypochromic, microcytic anemia with features favoring iron deficiency 2. Please confirm with ferritin and iron panel determination 3. Mild absolute neutrophilia, benign/nonspecif ic 4. Mild thrombocytosis; most likely secondary to iron deficiency 5. See comment 08/21/2024 11:31 AM CDT [facility] at 1131 CDT Comment The most [...] CBC is recommended 08/21/2024 11:31 AM T [facility] Clinical Information Anemia and thrombocytosis. Physician requests peripheral blood smear morphology review. 08/21/2024 11:31 AM T [facility] CBC and Differential HEMATOLOGY PARAMETERS Tested at: [facility] [place] RESULTS EXPECTED VALUES WBC: 12.0 4.5-85c5460/cum m ELEVATED RBC: 3.61 4.00-5.20 mil/cummDECREASE D HGB: 8.2 12-16 gm/dl DECREASED HCT: 27.9 33-51% DECREASED MCV: 77.3 80-100 fl MICROCYTIC MCH: 22.7 26-34 pg DECREASED MCHC: 29.4 32-36 gm/dl HYPOCHROMIC RDW: 16.4 11.5-15.5% ELEVATED PLT: 552 140-369n1298/uL ELEVATED MPV: 8.9 6.5-11 fl Retic: 2.05 0.5-1.5% ELEVATED Differential Absolute (%) Expected (%) (x10*9/L) (x10*9/L) Neutrophils: 9.51 (79.2) 1.7-7.0 (42-72%) ELEVATED Lymphocytes: 1.71 (14.2) 0.9-2.9 (20-44%) Monocytes: 0.57 (4.7) <0.9 (0-11%) Eosinophils: 0.11 (.9) <0.5 (0-2%) Basophils: 0.06 (.5) <0.3 (<3.0%) Imm Grans: 0.05 (.4) <0.3 (0-3%) (Metas, Myelos,Pros) 08/21/2024 11:31 AM CDT [facility] Microscopic Description The final diagnosis is based on microscopic examination of an appropriately stained blood smear. 08/21/2024 11:31 AM CDT [facility] Additional Information Interpreted at [facility] Central Laboratory - [address] [place] [address] 08/21/2024 11:31 AM CDT [facility] Blood BLOOD SPECIMEN / Unknown Client Collect / Unknown 08/20/2024 3:06 PM CDT 08/20/2024 6:39 PM CDT us Chato CARDOSO HEMATOLOGY Final Result [facility] [address] [place] [address], from Last 3 Months Insurance MEDICARE PART B HB ONLY MEDICARE PART A HB ONLY MEDICA [employer] [facility] Care Teams Box Lining Machine Operator Relationship Specialty Start Date End Date [facility] [address] [place] [address] PCP - General 10/21/17
--- OUTSIDE RECORDS SUMMARY | 2024-10-30 01:01 | XMS_ITS | Clinical Summary ---
Author Organization [facility] Address [address], [place] [address] Care Team Providers Care Bead Filler Name Role Phone Unavailable Primary Care Provider Unavailabl e Source Comments You are receiving this document as you are listed as the primary care provider,follow-up provider, or the patient has been referred to you for consultation.This is in compliance with the Medicare and[facility] EHR Incentive Program,which states Providers who transition their patient to another setting of careor provider of care or refers their patient to another provider of care shouldprovide summary care record for each transition of care or referral. [facility] Allergies No known active allergies Medications buffered [...] 1:00 PM CDT Office Visit [facility] [place] [address] [facility] [address] [place] [address] Juanjo Barger MD Kidney stone [...] Negative Negative mg/dL 09/01/2024 2:04 PM CDT [facility] Bilirubin Negative Negative 09/01/2024 2:04 PM CDT [facility] Ketones Negative Negative mg/dL 09/01/2024 2:04 PM T [facility] Specific [place] 1.025 1.005 - 1.030 09/01/2024 2:04 PM CDT [facility] Blood Negative Neg/Trace 09/01/2024 2:04 PM CDT [facility] pH 6.0 5.0 - 8.0 09/01/2024 2:04 PM CDT [facility] Protein Negative Neg/Trace mg/dL 09/01/2024 2:04 PM T [facility] Urobilinogen 0.2 <2.0 EU/dL 09/01/2024 2:04 PM T [facility] Nitrite Negative Negative 09/01/2024 2:[address] [facility] Leukocyte Esterase Negative Negative 09/01/2024 2:04 PM T [facility] Color Yellow 09/01/2024 2:04 PM T [facility] Clarity Clear Clear 09/01/2024 2:[address] [facility] Performing Location URO BU 09/01/2024 2:[address] [facility] Urine 09/01/2024 2:01 PM CDT 09/01/2024 2:04 PM CDT us Juanjo Barger MD LAB_1 Final Result [facility] [address] [place] [address] from Last 3 [place] [address] [employer]
--- OUTSIDE RECORDS SUMMARY | 2024-10-30 01:01 | XMS_ITS ---
Author Name Interface, [id number] lity Address [address] [place], [place] [address] [facility] Address [facility] [place] [address] Allergies and Adverse Reactions Plan Reason for Visit Encounters Medications Problems Vital Signs Notes Section
--- OUTSIDE RECORDS SUMMARY | 2024-10-30 01:02 | XMS_ITS | CCD ---
Author Name Interface, [id number] lity Address [address] [place], [place] [address] [place] [address] [facility] Address [address] [place] [address] Care Team Providers Care Emergency Room Nurse Name Role Phone Chato Olivares Unavailable Unavailable Allergies and Adverse Reactions Care Plan Reason for Visit Encounters Immunizations Diagnostic Results Medications Administered Medications Patient Education Problems Procedures Social History Visits Vital Signs Notes Section
--- OUTSIDE RECORDS SUMMARY | 2024-10-30 01:02 | XMS_ITS | Clinical Summary ---
Author Organization [facility] Address [address] [place] [address] Care Team Providers Care Labor And Employment Paralegal Name Role Phone Elsewhere, Pcp Primary Care Provider Unavailabl e Source Comments Patient records contain information from all sites at [facility]. For routine questions regarding patient records, call [phone] during business hours, M-F 8:00 AM - 5:00 PM Central Time. Record requests for emergency care only can be directed to [phone] at any time.[facility] Allergies No known active allergies Medications [...] Sex Assigned at Female 04/01/2023 1:14 PM BUSINESS DEVELOPMENT MANAGER Legal Sex Female 8:38 AM BUSINESS DEVELOPMENT MANAGER Gender Identity Female 04/01/2023 1:14 PM BUSINESS DEVELOPMENT MANAGER Sexual Orientation Straight 04/01/2023 1: 14 PM BUSINESS DEVELOPMENT MANAGER Last Filed Vital Signs Vital Sign Reading Time Taken Comments Blood Pressure 132/70 04/11/2023 2:32 PM BUSINESS DEVELOPMENT MANAGER Pulse 57 04/11/2023 2:32 PM BUSINESS DEVELOPMENT MANAGER Temperature 36.9 C (98.4 F) 04/11/2023 2:01 PM BUSINESS DEVELOPMENT MANAGER Respiratory Rate 13 04/11/2023 2:32 PM BUSINESS DEVELOPMENT MANAGER Oxygen Saturation 94% 04/11/2023 2:32 PM BUSINESS DEVELOPMENT MANAGER Inhaled Oxygen Concentration - - Weight 110 kg (243 lb 9.7 oz) 04/11/2023 12:07 P M BUSINESS DEVELOPMENT MANAGER Height 166.5 cm (5' 5.55) 04/11/2023 12:[address] Body Mass Index 39.86 04/11/2023 12:07 PM BUSINESS DEVELOPMENT MANAGER Plan of Treatment Health Maintenance Due Date [...] Insurance MEDICARE FOR LIFE MEDICA Care Teams Labor And Employment Paralegal Relationship Specialty Start Date End Date Elsewhere, Pcp PCP - General Internal Medicine 01/22/23
== END 2024-10-29 13:22 | disposition home or self-care (01) ==
PROVIDERS: Visit Provider Family Medicine
DX: M25.562 Pain in left knee (principal); M17.12 Unilateral primary osteoarthritis, left knee
CPT/HCPCS: 73562

== ENCOUNTER 2024-12-22 16:13 | Outpatient (CLI) | payer MEDICARE, OTHER, SELFPAY ==
--- NOTE | 2024-12-22 16:45 | CRLHL7_ITS ---
For Patients: As a result of the Century Cures Act, medical imaging exams and procedure reports are released immediately into your electronic medical record. You may view this report before your referring provider. If you have questions, please contact your health care provider. INDICATION: Anemia. TECHNIQUE: CT abdomen and pelvis acquired with 123 mL Isovue 370 IV contrast. COMPARISON: CT abdomen/pelvis dated 10/05/2022. FINDINGS: Lower chest: No focal consolidation. Liver: Stable small hepatic cysts. Right hepatic dome excluded from field of view. Gallbladder and bile ducts: Unremarkable. Pancreas: Unremarkable. Spleen: Unremarkable. Adrenal glands: Unremarkable. Kidneys: Kidneys enhance symmetrically, without hydronephrosis. Too small to characterize hypodense bilateral renal lesions. Retroperitoneum: No lymphadenopathy. Bowel and mesentery: Bowel is not obstructed. No significant ascites, no pneumoperitoneum. Postsurgical changes at the cecum. Large hiatal hernia, with majority of stomach contained within the thoracic cavity, not significantly changed. Extensive colonic diverticulosis, without evidence of acute diverticulitis. Bladder: Decompressed, suboptimally evaluated. Reproductive organs: Post hysterectomy. Pelvic lymph nodes: No lymphadenopathy. Vessels: Atherosclerotic calcifications. Abdominal wall: No acute abdominal wall abnormality. Postsurgical changes of prior ventral abdominal wall hernia repair. Bones: Multilevel degenerative changes of the spine. Bones are osteopenic. IMPRESSION: 1. No acute intra-abdominal abnormality identified. 2. Large hiatal hernia, with majority of stomach contained within the thoracic cavity, not significantly changed. 3. Extensive colonic diverticulosis, without evidence of acute diverticulitis. Please note that all CT scans at this facility use dose modulation, iterative reconstruction, and/or weight-based dosing when appropriate to reduce radiation dose to as low as reasonably achievable. Dictated by Paula Person MD @ 12/23/2024 3:29:12 PM (Electronically Signed)
== END 2024-12-22 16:14 | disposition home or self-care (01) ==
LOC: CT 16:14
PROVIDERS: PCP Family Medicine; Visit Provider Internal Medicine
DX: D64.9 Anemia, unspecified (principal); K44.9 Diaphragmatic hernia without obstruction or gangrene; K57.30 Diverticulosis of large intestine without perforation or abscess without bleeding; D50.0 Iron deficiency anemia secondary to blood loss (chronic); R10.9 Unspecified abdominal pain
CPT/HCPCS: 74177; Q9967

== ENCOUNTER 2024-12-31 12:30 | Outpatient (CLI) | payer MEDICARE, OTHER, SELFPAY ==
--- NOTE | 2024-12-31 12:55 | P.ANES_ITS ---
Anesthesia Charges Start Date/Time Anesthesia Start Date: 12/31/24 Anesthesia Start Time: 13:55 Stop Date/Time Anesthesia Stop Date: 12/31/24 Anesthesia Stop Time: 14:49 Coding CPT Codes CPT Codes: ANES UPR LWR GI NDSC PX - 24678 ([id number]) P3 - PATIENT W/SEVERE SYS DISEASE, QK - CODE NUMBER STAMPER 2-4 CNCRNT ANES PROC, QX - AUTO BODY ESTIMATOR SVC W/ MD MED DIRECTION
--- NOTE | 2024-12-31 12:55 | W.ANESCHARGE ---
Anesthesia Charges Start Date/Time Anesthesia Start Date: 12/31/24 Anesthesia Start Time: 13:55 Stop Date/Time Anesthesia Stop Date: 12/31/24 Anesthesia Stop Time: 14:49 Coding CPT Codes CPT Codes: ANES UPR LWR GI NDSC PX - 07339 ([id number]) P3 - PATIENT W/SEVERE SYS DISEASE, QK - CIGAR PACKER AND GRADER 2-4 CNCRNT ANES PROC, QX - AUTOMATIC BOW MAKER MACHINE TENDER SVC W/ MD MED DIRECTION
--- NOTE | 2024-12-31 14:51 | P.ANES_ITS ---
Anesthesia Charges Start Date/Time Anesthesia Start Date: 12/31/24 Anesthesia Start Time: 13:55 Stop Date/Time Anesthesia Stop Date: 12/31/24 Anesthesia Stop Time: 14:49 Coding CPT Codes CPT Codes: ANES UPR LWR GI NDSC PX - 62696 ([id number]) P3 - PATIENT W/SEVERE SYS DISEASE, QK - GASKET SUPERVISOR 2-4 CNCRNT ANES PROC, QX - PIECE HAND SVC W/ MD MED DIRECTION
--- NOTE | 2024-12-31 14:51 | W.ANESCHARGE ---
Anesthesia Charges Start Date/Time Anesthesia Start Date: 12/31/24 Anesthesia Start Time: 13:55 Stop Date/Time Anesthesia Stop Date: 12/31/24 Anesthesia Stop Time: 14:49 Coding CPT Codes CPT Codes: ANES UPR LWR GI NDSC PX - 32390 ([id number]) P3 - PATIENT W/SEVERE SYS DISEASE, QK - ACCREDITATION MANAGER 2-4 CNCRNT ANES PROC, QX - CUSTOMER SERVICES COORDINATOR SVC W/ MD MED DIRECTION
== END 2024-12-31 12:31 | disposition home or self-care (01) ==
LOC: OP CLINIC 12:31
PROVIDERS: PCP Family Medicine; Visit Provider Surgery
DX: D50.9 Iron deficiency anemia, unspecified (principal); K57.30 Diverticulosis of large intestine without perforation or abscess without bleeding; D12.2 Benign neoplasm of ascending colon; D12.3 Benign neoplasm of transverse colon; K44.9 Diaphragmatic hernia without obstruction or gangrene; K22.89 Other specified disease of esophagus; K31.89 Other diseases of stomach and duodenum
CPT/HCPCS: 00813; 43239; 45380; 45385; 88305; J2371; J2704; J3490

== ENCOUNTER 2025-01-21 15:17 | Outpatient (CLI) | payer MEDICARE, OTHER, SELFPAY ==
--- NOTE | 2025-01-21 15:30 | CRLHL7_ITS ---
For Patients: As a result of the Century Cures Act, medical imaging exams and procedure reports are released immediately into your electronic medical record. You may view this report before your referring provider. If you have questions, please contact your health care provider. DXA BONE MINERAL DENSITY STUDY Reason for exam: Screening for osteoporosis. Current height (in): 66. Weight (lb): 225. Menopause age: 45. Ethnicity: White. 1. Have you had a previous hip or vertebral fracture? No. 2. Have you had any fractures during your adult life which did not result from significant trauma (e.g., auto accident)? No. 3. Did either of your parents have a hip fracture? Yes. 4. Do you smoke? No. 5. Have you ever taken Glucocorticoids? No. 6. Do you have rheumatoid arthritis? No. 7. Do you have secondary osteoporosis? Yes. 8. Do you drink 3 or more alcoholic drinks per day? No. 9. Are you being treated for osteoporosis? No. 10. Have you ever taken any of the following medications: Actonel, Evista, Fosamax, Miacalcin, Reclast, Boniva, Forteo, HRT (i.e. estrogen/hormone therapy), Protelos, Prolia, Vitamin D, Calcium, other ??? please specify. ANSWER: Yes, Actonel (i.e., risedronate) and vitamin D. 11. Do you have any of the following medical conditions: Anorexia or bulimia, asthma or emphysema, end stage renal disease, hyperparathyroidism, any seizure disorders, cancer, inflammatory bowel diseases, hysterectomy, other ??? please specify. ANSWER: Yes, Hyperparathyroidism, hysterectomy, and anemia. 12. What was your maximum height (inches)? 67. 13. Do you perform weight bearing exercise regularly? No. 14. Do you regularly consume dairy products? Yes. 15. Do you drink caffeinated beverages? No. If female: 16. At what age did your period start? 14. 17. Are you premenopausal? No. 18. How many full-term pregnancies have you had? 3. 19. Have you ever missed your period for more than 6 months in a row (not including or menopause)? No. TECHNIQUE: Bone mineral density study was performed using the [employer]. FINDINGS: The results of the study expressed as bone mineral density (BMD) are as follows: Lumbar spine L1 to L4: BMD: 1.086 g/cm2. T-score: 0.4. Z-score: 2.3. Neck Left: BMD: 0.768 g/cm2. T-score: -0.7. Z-score: 1.0. Right: BMD: 0.717 g/cm2. T-score: -1.2. Z-score: 0.5. Total Left: BMD: 0.960 g/cm2. T-score: 0.1. Z-score: 1.5. Right: BMD: 0.981 g/cm2. T-score: 0.3. Z-score: 1.7. IMPRESSION: Osteopenia. *Comparison exams done prior to 10/2019 were performed on different unit, [employer]. COMPARISON: Compared with scan of 08/30/2022, the bone mineral density has decreased by 2.7 percent at the spine and increased by 1.2 percent at the hip. FRAX 10-year Fracture Risk Major Osteoporotic Fracture: 14 percent Hip Fracture: 1.3 percent Reported Risk Factors: [place] () Neck BMD=0.717, BMI=36.3, parental fracture, secondary osteoporosis Preston Evangelista M.D. Diagnostic Radiologist [email or web address]/[email or web address]/Dictated by: Preston Evangelista MD @ 01/22/2025 8:30:00 AM (Electronically Signed)
== END 2025-01-21 15:18 | disposition home or self-care (01) ==
LOC: RAD 15:18
PROVIDERS: PCP Family Medicine; Visit Provider Family Medicine
DX: Z13.820 Encounter for screening for osteoporosis (principal); M85.89 Other specified disorders of bone density and structure, multiple sites
CPT/HCPCS: 77080

== ENCOUNTER 2025-04-19 18:06 | Outpatient (CLI) | payer MEDICARE, OTHER, SELFPAY ==
--- NOTE | 2025-04-19 18:15 | MR_ITS ---
[facility] [address] [facility] [address] Phone:?[phone] Fax:?[phone] Referring Physician Information: Denny Mcdermott M.D. [id number] [facility] [address] Phone:?[phone] Fax:?[phone] Patient:Flower Shields D.O.B:?1955 Sex:?Female Phone:?[phone] [facility] MRN:?[id number] Exam Date:?04/19/2025 EXAM: MRI of the LEFT KNEE without contrast CLINICAL: Left knee pain. Evaluate for medial meniscal tear. COMPARISONS: X-rays dated 10/29/2024. TECHNICAL: Multiplanar multisequence MRI of the left knee was obtained. SEDATION: None. CONTRAST: None. FINDINGS: Ligaments: ACL: Intact and unremarkable. PCL: Intact and unremarkable. MCL: Intact and unremarkable. LCL: Intact and unremarkable. Posterolateral corner: The popliteus tendon, distal biceps femoris tendon, distal iliotibial band, and the popliteofibular ligament appear intact. Posteromedial corner: Semimembranosus, pes anserine tendons and posterior oblique ligament appear intact. Extensor mechanism: Patellar tendon: Intact, without tendinopathy. Quadriceps tendon: Intact, without tendinopathy. Retinacula: Medial and lateral retinacula are intact. Fat pads: Unremarkable infrapatellar Hoffa's, quadriceps and prefemoral fat pads. Patellofemoral joint: Patella: There is high-grade/full-thickness loss involving the patellar median ridge with mild adjacent subchondral reactive marrow edema as seen on axial series 4 images 10-11. Trochlea: No significant chondromalacia. Medial compartment: Medial meniscus: Degenerative signal changes are seen to involve the body and posterior horn. No discrete meniscal tear is identified. There is approximately 3 mm of medial extrusion of the peripheral body segment. Medial cartilage: Small segment of high-grade chondral loss involving the weightbearing medial femoral condyle adjacent to the posterior horn medial meniscus on sagittal series 6 image 11. Otherwise grade 2 chondral thinning involving the medial femoral condyle and medial tibial plateau. Lateral compartment: Lateral meniscus: There is complex tearing throughout the anterior horn extending into the anterior root and throughout the body segment extending into the posterior horn. No significant meniscal displacement. Lateral cartilage: There is high-grade and full-thickness chondral loss involving the lateral femoral condyle and lateral tibial plateau with adjacent subchondral reactive marrow edema. Knee joint: Effusion: At least moderate sized partially visualized left knee effusion. Intra-articular bodies:?No convincing bodies identified. Popliteal cyst: Moderate sized popliteal cyst is present with some internal complexity/septations. Bones: No suspicious bone marrow signal alteration or fracture line. IMPRESSION: 1. Tearing of the lateral meniscus as above. 2. Degenerative signal changes involving the medial meniscus without discrete tear. There is medial extrusion of the peripheral body segment medial meniscus. 3. Tricompartmental chondral loss as above. 4. At least moderate sized partially visualized joint effusion. 5. Moderate-sized popliteal cyst. JCZ Electronically signed on 04/20/2025 8:31:00 AM by Humza Cardenas D.O.
== END 2025-04-19 18:07 | disposition home or self-care (01) ==
LOC: MRI 18:08
PROVIDERS: PCP Family Medicine; Visit Provider Orthopaedic Surgery
DX: M25.562 Pain in left knee (principal); S83.282A Other tear of lateral meniscus, current injury, left knee, initial encounter; M25.462 Effusion, left knee; M71.22 Synovial cyst of popliteal space [Baker], left knee
CPT/HCPCS: 73721